=== PATIENT | female | born 1950 | race Caucasian/White ===

== ENCOUNTER → 2016-03-22 | Outpatient (CLI) | payer BC ==
--- NOTE | 2016-03-22 12:12 | MR ---
EXAMINATION TYPE: MR knee RT wo con DATE OF EXAM: 03/22/2016 10:07 AM COMPARISON: NONE HISTORY: Rt. knee pain TECHNIQUE: Multiplanar, multisequence imaging of the right knee is performed without IV contrast. FINDINGS: There are postop changes to the distal femur, metallic susceptibility artifact could obscur e detail. MEDIAL MENISCUS: Posterior horn of the medial meniscus shows some linear increased signal which is th ought to extend to the articular surface LATERAL MENISCUS: There is some increased signal in the posterior horn of the lateral meniscus, diffi cult to exclude a tear seen better on the sagittal image. CRUCIATE LIGAMENTS: The anterior and posterior cruciate ligaments are intact and unremarkable. COLLATERAL LIGAMENTS: The medial collateral ligament and lateral collateral ligament complex are inta ct and unremarkable. EXTENSOR MECHANISM: Visualized quadriceps and patellar tendons are intact. EFFUSION: Small joint effusion. POPLITEAL CYST: Small semimembranosus gastrocnemius cyst is present. TRICOMPARTMENT SPACES: Mild joint space loss CARTILAGE: Suspect grade 3 to grade IV chondromalacia posterior patella BONE MARROW SIGNAL: Somewhat heterogeneous in the proximal tibia and fibula as well as lateral femora l condyle and along the shaft of the distal femur there is some increased signal which may be related to bone marrow edema OTHER: Subcutaneous edema present anterior subcutaneous fat. IMPRESSION: Postoperative changes as described. Osteoarthritis. Possible meniscal tears as described. Additional findings above.
== END | disposition home or self-care (01) ==
LOC: RADMRIMAIN 09:23
PROVIDERS: ATTEND Nurse Practitioner Family
DX: M17.11 Unilateral primary osteoarthritis, right knee (principal); Z87.81 Personal history of (healed) traumatic fracture; Z98.890 Other specified postprocedural states

== ENCOUNTER → 2016-04-11 | Outpatient (CLI) | payer BC ==
--- NOTE | 2016-04-15 09:11 | MM ---
Reason for exam: screening (asymptomatic). Last mammogram was performed 2 years and 4 months ago. History: Patient is postmenopausal. Family history of premenopausal breast cancer in sister and breast cancer in cousin. Excisional biopsy of the right breast, January 2008. Took estrogen for 3 years beginning at age 51. Physical Findings: A clinical breast exam by your physician is recommended on an annual basis and results should be correlated with mammographic findings. MG 3D Screening Mammo W/Cad Bilateral CC and MLO view(s) were taken. Prior study comparison: December 13, 2013, bilateral MG screening mammo w CAD. May 26, 2012, CAD bilateral diagnostic mammogram. January 29, 2011, bilateral digital screening mammo w/CAD. October 20, 2009, bilateral digital screening mammogram. A small circumscribed nodule in the posterior left breast on MLO view has benign features. No significant changes when compared with prior studies. ASSESSMENT: Benign, BI-RAD 2 RECOMMENDATION: Routine screening mammogram of both breasts in 1 year.
== END | disposition home or self-care (01) ==
LOC: RADMAMWWP 14:47
PROVIDERS: ATTEND Family Medicine
DX: Z12.31 Encounter for screening mammogram for malignant neoplasm of breast (principal)
CPT/HCPCS: 77063; G0202

== ENCOUNTER → 2017-03-13 | Outpatient (CLI) | payer BC | END | disposition home or self-care (01) | LOC: LABWHC1 14:59 | PROVIDERS: ATTEND Internal Medicine | DX: Z09 Encounter for follow-up examination after completed treatment for conditions other than malignant neoplasm (principal); Z86.711 Personal history of pulmonary embolism; Z86.718 Personal history of other venous thrombosis and embolism | CPT/HCPCS: 36415; 85379 ==

== ENCOUNTER → 2017-04-09 | Outpatient (CLI) | payer BC ==
[2017-04-09 13:19] LABS: Blood Urea Nitrogen 20 mg/dL (7-17)
--- NOTE | 2017-04-09 15:52 | CT ---
EXAMINATION TYPE: CT chest w con DATE OF EXAM: 04/09/2017 COMPARISON: Recent chest x-ray April 02, 2017. Recent CTA chest 04/27/2014 HISTORY: Lobar pneumonia per order. CT DLP: 416.60 mGycm. Automated Exposure Control for Dose Reduction was Utilized. TECHNIQUE: CT scan of the thorax is performed following with IV Contrast, patient injected with 80 m l mL of Visipaque 320. FINDINGS: LUNGS: There is linear density left lung base redemonstrated presumed postsurgical change, less likel y calcified plaque. There is adjacent left basilar scarring redemonstrated. Lungs otherwise are matilde sly clear. Prominent right pericardial fat pad anteriorly mimics triangular shaped opacity right lung base on recent x-ray. There is no pleural effusion or pneumothorax seen bilaterally. No suspicious nodule or mass is present. The tracheobronchial tree is patent. MEDIASTINUM: There are no greater than 1 cm hilar or mediastinal lymph nodes. No cardiomegaly or pe ricardial effusion is seen. Coronary artery calcification is seen which is noted marker for coronary artery disease. OTHER: There is moderate to severe multilevel spurring in the thoracic spine. There are surgical steele ge from gastric bypass procedure epigastric region redemonstrated. Cholecystectomy clips are again se en. IMPRESSION: 1. No suspicious acute pulmonary process.
== END | disposition home or self-care (01) ==
LOC: RADCTMAIN 12:19
PROVIDERS: ATTEND Internal Medicine Critical Care Medicine
DX: J18.1 Lobar pneumonia, unspecified organism (principal)
CPT/HCPCS: 82565; 84520; 71260; 36415; Q9967

== ENCOUNTER → 2017-12-30 | Outpatient (CLI) | payer BC, MEDICARE ==
--- NOTE | 2017-12-30 12:43 | US ---
EXAMINATION TYPE: US venous Doppler duplex LE DATE OF EXAM: 12/30/2017 12:29 PM COMPARISON: CT, US CLINICAL HISTORY: M79.662 M79.661 Pain bilateral Lower. Patient stated has bilateral calf cramping an d noted after long distance travel recently; prior PE; on Xarelto and other blood thinner since 2011 SIDE PERFORMED: Bilateral TECHNIQUE: The lower extremity deep venous system is examined utilizing real time linear array sonog myron with graded compression, Doppler sonography and color-flow sonography. VESSELS IMAGED: Common Femoral Vein Deep Femoral Vein Greater Saphenous Vein * Femoral Vein Popliteal Vein Small Saphenous Vein * Proximal Calf Veins (* superficial vessels) Grayscale, color Doppler, spectral doppler imaging performed of the deep veins of the lower extremiti es. There is normal flow, compressibility, vascular waveforms. Right Leg: Negative for DVT Left Leg: Negative for DVT IMPRESSION: No sonographic evidence of deep venous thrombosis within the bilateral lower extremities.
== END | disposition home or self-care (01) ==
LOC: RADUSWWP 11:48
PROVIDERS: ATTEND Internal Medicine Hematology & Oncology
DX: M79.662 Pain in left lower leg (principal); M79.661 Pain in right lower leg; Z88.5 Allergy status to narcotic agent; Z88.8 Allergy status to other drugs, medicaments and biological substances
CPT/HCPCS: 93970

== ENCOUNTER 2021-03-25 14:03 | Inpatient (IN) | payer MEDICARE, OTHER ==
[2021-03-25] MEDS ORDERED: HYDROmorphone 0.5 MG/0.5 ML SYRINGE IVP STA ×3 (14:25→16:34)
--- NOTE | 2021-03-25 14:53 | ED ---
General Adult HPI - General Chief complaint: Fall Stated complaint: fall Time Seen by Provider: 03/25/21 14:05 Source: patient, EMS Mode of arrival: EMS Limitations: no limitations - History of Present Illness Initial comments: 70-year-old female with a past medical history of diabetes mellitus, DVT/PE on Xarelto, GERD, hypertension presents to the emergency room for a chief complaint of fall. Patient slipped on ice and fell on the left hip. Patient is painful to move. Patient states she cannot stand on it. Patient was brought in by EMS. Patient denies hitting her head or any other injuries. Denies pain elsewhere.Patient has no other complaints at this time including shortness of breath, chest pain, abdominal pain, nausea or vomiting, headache, or visual changes. - Related Data Home Medications Medication Instructions Recorded Confirmed ALPRAZolam [Xanax] 0.5 mg PO HS PRN 08/23/14 12/31/17 Furosemide [Lasix] 40 mg PO QAM 08/23/14 12/31/17 Moexipril HCl [Univasc] 15 mg PO BID 08/23/14 12/31/17 Omeprazole [PriLOSEC] 40 mg PO AC-BRKFST 08/23/14 12/31/17 Potassium Chloride [Klor-Con 10 ER] 10 meq PO QAM 08/23/14 12/31/17 Venlafaxine HCl ER [Effexor XR] 75 mg PO QAM 08/23/14 12/31/17 glipiZIDE [Glucotrol] 5 mg PO QAM 08/23/14 12/31/17 metFORMIN HCL [Glucophage] 1,000 mg PO BID 08/23/14 12/31/17 Rivaroxaban [Xarelto Starter Pack] 10 mg PO DAILY 06/16/15 12/31/17 allopurinoL [Zyloprim] 300 mg PO QAM 06/16/15 12/31/17 Diphenox-Atrop 2.5-0.025 mg 2 tab PO QID PRN 12/31/17 [Lomotil] Oxybutynin Chloride 5 mg PO BID 12/31/17 Pravastatin Sodium [Pravachol] 20 mg PO DAILY 12/31/17 Allergies Allergy/AdvReac Type Severity Reaction Status Date / Time Iodinated Contrast Media Allergy Swelling Verified 03/25/21 14:21 shellfish derived Allergy Abdominal Verified 03/25/21 14:21 Pain warfarin sodium Allergy Unknown Verified 03/25/21 14:21 [From Coumadin] Review of Systems ROS Statement: Those systems with pertinent positive or pertinent negative responses have been documented in the HPI. ROS Other: All systems not noted in ROS Statement are negative. Past Medical History Past Medical History: Blood Disorder, Diabetes Mellitus, Deep Vein Thrombosis (DVT), GERD/Reflux, Hypertension, Pulmonary Embolus (PE) History of Any Multi-Drug Resistant Organisms: None Reported Past Surgical History: Hysterectomy, Orthopedic Surgery, Tubal Ligation Additional Past Surgical History / Comment(s): HAD GASTRIC STAPLING WITH REVERSAL. LUNG STUCK TO DIAPHRAGM. RIGHT WRIST FRACTURE. LEFT ARM HEMATOMA WITH SECONDARY SURGERY. Past Psychological History: No Psychological Hx Reported Past Alcohol Use History: None Reported Past Drug Use History: None Reported - Past Family History Mother Family Medical History: Diabetes Mellitus Additional Family Medical History / Comment(s): PATIENT STATES MOTHER HAD "HEART CONDITION" Father Additional Family Medical History / Comment(s): PATIENT STATES FATHER HAD "HEART CONDITION" Son(s) Family Medical History: Deep Vein Thrombosis (DVT) (upper extremity after PICC line), Pulmonary Embolus (after PICC line ) General Exam Limitations: no limitations General appearance: alert, in no apparent distress Head exam: Present: atraumatic Eye exam: Present: normal appearance, PERRL, EOMI. Absent: scleral icterus, conjunctival injection ENT exam: Present: normal exam, mucous membranes moist Neck exam: Present: normal inspection, full ROM. Absent: tenderness Respiratory exam: Present: normal lung sounds bilaterally. Absent: respiratory distress, wheezes, chest wall tenderness Cardiovascular Exam: Present: regular rate, normal rhythm, normal heart sounds GI/Abdominal exam: Present: soft, normal bowel sounds. Absent: distended, tenderness Extremities exam: Present: tenderness (Tenderness is noted to the left lateral hip), normal capillary refill (Capillary refill less than 2 seconds, DP pulse 2+ left lower extremity). Absent: full ROM (range Of motion of the left hip is limited secondary to pain. Patient able to move all toes.) Course Vital Signs 03/25/21 03/25/21 14:18 16:22 Temperature 97 F L Pulse Rate 76 92 Respiratory 20 20 Rate Blood Pressure 141/83 125/65 O2 Sat by Pulse 97 91 L Oximetry - Reevaluation(s) Reevaluation #1: 03/25/21 14:49 pt now stating she has some chest pressure that just started after getting xrays, ekg will be obtained EKG Findings - EKG Comments: EKG Findings:: Normal sinus rhythm, ventricular rate 83, ME interval 186, QTC 448 Medical Decision Making - Medical Decision Making pt presents for left hip pain after a mechanical fall slipped on ice. neurovascular status intact LLE. Xray shows an acute impacted femoral neck fracture. 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 pt also started to complain of chest pain after xrays. described it as a pressure in her chest. non radiating. Xray unremarkable. Troponin negative. we will consult cardiology and trend troponin. CT brain c-spine added per Dr Chang's request given anticoagulation. results pending. we will hold aspirin for chest pain until this is negative. Dr Roman did accept admission. Requests stat consult to medicine given chest pain. I did notify Dr De La Cruz and he is coming to the ER for eval. - Lab Data Result diagrams: 03/25/21 15:22 03/25/21 15:22 Lab Results 03/25/21 03/25/21 03/25/21 Range/Units 15:22 15:22 15:22 WBC 13.4 H (3.8-10.6) k/uL RBC 4.50 (3.80-5.40) m/uL Hgb 12.5 (11.4-16.0) gm/dL Hct 38.7 (34.0-46.0) % MCV 85.9 (80.0-100.0) fL MCH 27.8 (25.0-35.0) pg MCHC 32.4 (31.0-37.0) g/dL RDW 14.6 (11.5-15.5) % Plt Count 156 (150-450) k/uL MPV 8.4 Neutrophils % 84 % Lymphocytes % 11 % Monocytes % 3 % Eosinophils % 2 % Basophils % 0 % Neutrophils # 11.2 H (1.3-7.7) k/uL Lymphocytes # 1.5 (1.0-4.8) k/uL Monocytes # 0.4 (0-1.0) k/uL Eosinophils # 0.3 (0-0.7) k/uL Basophils # 0.0 (0-0.2) k/uL PT 11.3 (9.0-12.0) sec INR 1.1 (<1.2) APTT 25.1 (22.0-30.0) sec Sodium 139 (137-145) mmol/L Potassium 4.6 (3.5-5.1) mmol/L Chloride 106 (98-107) mmol/L Carbon Dioxide 24 (22-30) mmol/L Anion Gap 9 mmol/L BUN 14 (7-17) mg/dL Creatinine 0.69 (0.52-1.04) mg/dL Est GFR (CKD-EPI)AfAm >90 (>60 ml/min/1.73 sqM) Est GFR (CKD-EPI)NonAf 90 (>60 ml/min/1.73 sqM) Glucose 170 H (74-99) mg/dL Calcium 9.1 (8.4-10.2) mg/dL Total Bilirubin 0.8 (0.2-1.3) mg/dL AST 182 H (14-36) U/L ALT 61 H (4-34) U/L Alkaline Phosphatase 90 (38-126) U/L Troponin I (0.000-0.034) ng/mL Total Protein 6.8 (6.3-8.2) g/dL Albumin 3.9 (3.5-5.0) g/dL 03/25/21 Range/Units 15:22 WBC (3.8-10.6) k/uL RBC (3.80-5.40) m/uL Hgb (11.4-16.0) gm/dL Hct (34.0-46.0) % MCV (80.0-100.0) fL MCH (25.0-35.0) pg MCHC (31.0-37.0) g/dL RDW (11.5-15.5) % Plt Count (150-450) k/uL MPV Neutrophils % % Lymphocytes % % Monocytes % % Eosinophils % % Basophils % % Neutrophils # (1.3-7.7) k/uL Lymphocytes # (1.0-4.8) k/uL Monocytes # (0-1.0) k/uL Eosinophils # (0-0.7) k/uL Basophils # (0-0.2) k/uL PT (9.0-12.0) sec INR (<1.2) APTT (22.0-30.0) sec Sodium (137-145) mmol/L Potassium (3.5-5.1) mmol/L Chloride (98-107) mmol/L Carbon Dioxide (22-30) mmol/L Anion Gap mmol/L BUN (7-17) mg/dL Creatinine (0.52-1.04) mg/dL Est GFR (CKD-EPI)AfAm (>60 ml/min/1.73 sqM) Est GFR (CKD-EPI)NonAf (>60 ml/min/1.73 sqM) Glucose (74-99) mg/dL Calcium (8.4-10.2) mg/dL Total Bilirubin (0.2-1.3) mg/dL AST (14-36) U/L ALT (4-34) U/L Alkaline Phosphatase (38-126) U/L Troponin I <0.012 (0.000-0.034) ng/mL Total Protein (6.3-8.2) g/dL Albumin (3.5-5.0) g/dL Disposition Clinical Impression: Fall, Hip fracture, Chest pain Disposition: ADMITTED IP TO THIS HOSP Is patient prescribed a controlled substance at d/c from ED?: No Referrals: Willy Crowley MD [Family Provider] - 1-2 days Time of Disposition: 16:41
--- NOTE | 2021-03-25 15:28 | XR ---
EXAMINATION TYPE: XR Hip LT and AP Pelvis DATE OF EXAM: 03/25/2021 COMPARISON: NONE HISTORY: Pain. Fall. TECHNIQUE: 4 views FINDINGS: The pelvic ring is intact. There is impacted left femoral neck fracture. There is no disloc ation. IMPRESSION: Acute impacted femoral neck fracture.
[2021-03-25 15:29] LABS: Basophils % (A) 0 %; Eosinophils # (A) 0.3 k/uL (0-0.7); Eosinophils % (A) 2 %; HCT 38.7 % (34.0-46.0); HGB 12.5 gm/dL (11.4-16.0); Lymphocytes # (A) 1.5 k/uL (1.0-4.8); Lymphocytes % (A) 11 %; MCH 27.8 pg (25.0-35.0); MCHC 32.4 g/dL (31.0-37.0); MCV 85.9 fL (80.0-100.0); Mean Platelet Volume 8.4; Monocytes # (A) 0.4 k/uL (0-1.0); Monocytes % (A) 3 %; Neutrophils # (A) 11.2 k/uL (1.3-7.7); Neutrophils % (A) 84 %; Platelet Count 156 k/uL (150-450); RDW 14.6 % (11.5-15.5); WBC 13.4 k/uL (3.8-10.6)
--- NOTE | 2021-03-25 15:31 | XR ---
EXAMINATION TYPE: XR chest 1V DATE OF EXAM: 03/25/2021 COMPARISON: 04/17/2020 HISTORY: Rib pain TECHNIQUE: Single view FINDINGS: Exam limited by patient positioning. There is no heart failure nor confluent pneumonic infi ltrate. No pneumothorax. Exam limited by positioning. IMPRESSION: Limited exam shows no heart failure or pulmonary consolidation. No rib fractures seen
[2021-03-25 15:39] LABS: ALT 61 U/L (4-34); AST 182 U/L (14-36); African American GFR (CKD) >90 (>60 ml/min/1.73 sqM); Albumin 3.9 g/dL (3.5-5.0); Alkaline Phosphatase 90 U/L (38-126); Anion Gap 9 mmol/L; Blood Urea Nitrogen 14 mg/dL (7-17); Calcium 9.1 mg/dL (8.4-10.2); Carbon Dioxide 24 mmol/L (22-30); Chloride 106 mmol/L (98-107); Glucose 170 mg/dL (74-99); Non-African American GFR(CKD) 90 (>60 ml/min/1.73 sqM); Potassium 4.6 mmol/L (3.5-5.1); Sodium 139 mmol/L (137-145); Total Bilirubin 0.8 mg/dL (0.2-1.3); Total Protein 6.8 g/dL (6.3-8.2)
[2021-03-25 15:43] LABS: INR 1.1 (<1.2); Partial Thromboplastin Time 25.1 sec (22.0-30.0); Prothrombin Time 11.3 sec (9.0-12.0)
[2021-03-25] MEDS ORDERED: NALOXONE 0.4 MG/ML 1 ML VIAL IV PRN (16:41)
[2021-03-25] MEDS ORDERED: ONDANSETRON 4 MG/2 ML VIAL IVP PRN (16:41)
--- NOTE | 2021-03-25 17:32 | CT ---
EXAMINATION TYPE: CT brain jaylon chaves DATE OF EXAM: 03/25/2021 COMPARISON: None HISTORY: Fall today. No known head injury. Pt on blood thinners. CT DLP: 1642.5 mGycm Automated exposure control for dose reduction was used. Ventricles of normal size. There is no mass effect or midline shift. There is no sign of intracranial hemorrhage. There is cerebral mild cortical atrophy. Calvarium is intact. Skull base is intact. The cervical vertebra have normal alignment. Posterior elements are intact. Facet joints are intact. There is mild spurring at C5-6. Prevertebral soft tissues are intact. IMPRESSION: Mild cerebral atrophy. No acute intracranial abnormality. Mucous retention cysts noted in the maxilla ry sinuses. Minor degenerative disc changes at C5-6. No fracture.
[2021-03-25] MEDS ORDERED: ALPRAZolam 0.5 MG TAB PO PRN (17:38)
--- NOTE | 2021-03-25 18:03 | P.CONS ---
History of Present Illness - Reason for Consult Consult date: 03/25/21 Medical management Requesting physician: Brian Roman - Chief Complaint Fall - History of Present Illness STAT CONSULTATION: This is a pleasant 70-year-old patient follows with Dr. Mckeon. Chronic stable medical conditions include diabetes on insulin, GERD, hypertension, anxiety, depression, urinary incontinence, gout,. Patient is also had DVT in the right leg, arm, and a blood clot of the lung in the area starting in 2012. Patient's chronic and xarelto. Patient isn't a baseline fairly active. Patient did have a checkup including a stress test in October 2019 that was unremarkable. Patient is getting out of the car and she slipped on ice falling on her left hip. Patient has a left hip fracture now. While in the ER patient developed a squeezing sensation in the lower part of the sternum that lasted for about 10 minutes. No radiation. No aggravating or relieving factor. Pain subsided on its own. No shortness of breath. No dizziness, lightheadedness. Patient's at the bedside. Review of systems: GEN.: None EYES: None HEENT: None NECK: None RESPIRATORY: None CARDIOVASCULAR: As above GASTROINTESTINAL: GERD GENITOURINARY: Incontinence MUSCULOSKELETAL: Joint pains LYMPHATICS: None HEMATOLOGICAL: None PSYCHIATRY: None NEUROLOGICAL: None Past medical history to include: Diabetes, DVT PE about 3 episodes around 2012 and after GERD, hypertension, anxiety, urinary incontinence, depression, gout Social history: No history of smoking or alcohol. Lives with her . Family history: Diabetes, mother had heart condition Physical examination: VITAL SIGNS: 97, 76, 20, 141/83, 97% on room air GENERAL: BMI 40.4, laying in bed, awake, comfortable. EYES: Pupils equal. Conjunctiva normal. HEENT: External appearance of nose and ears normal, oral cavity grossly normal. NECK: JVD not raised; masses not palpable. HEART: First and second heart sounds are normal; no edema. LUNGS: Respiratory rate normal; clear to auscultation. ABDOMEN: Soft, nontender, liver spleen not palpable, no masses palpable. PSYCH: Alert and oriented x3; mood and affect normal. MUSCULAR skeletal: Limited range of motion of left hip. NEUROLOGICAL: Cranial nerves grossly intact; no facial asymmetry, power and sensation grossly intact. LYMPHATICS: No lymph nodes palpable in the axilla and neck INVESTIGATIONS, reviewed in the clinical context: White count 13.4 hemoglobin 12.5 platelets 156 sodium 139 potassium 4.6 creatinine 0.69 AST 182 ALT 61 Troponin I less than 0.012 EKG tracing personally reviewed by me-normal sinus rhythm. Rate 82. Chest x-ray film personally reviewed by me-limited exam because of positioning and possibly expiratory film Computed tomography scan brain and spine without contrast: Mild cerebral atrophy. DJD just changes. No fractures reported. Left hip x-ray fracture. Impacted left femoral neck fracture. No dislocation. Assessment and plan: -Left femoral neck fracture secondary to a mechanical fall. Bedrest. Patient being followed by Dr. Roman. Patient already and xarelto/DVT prophylaxis -Lower sternal chest pain lasting for 10 minutes. Subsided on its own. No other cardiac characteristics. No EKG changes. We will do serial cardiac enzymes. Cardiology is consulted. Patient did have a negative stress test in October 2019. Patient otherwise has no other cardiac symptoms. Possibly musculoskeletal from fall. -Morbid obesity BMI 40.4 Weight loss measures and follow with PCP -Diabetes mellitus type 2, chronic ligament insulin and Glucophage Hold Glucophage. Resume insulin 80 units subcu daily. Diabetic diet. Follow Accu-Cheks. 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 Patient chronically and xarelto 10 mg a day. We will hold off the same. Start the patient on Lovenox 100 mg subcu every 12. Lovenox can be held 12 hours prior to surgery. This was discussed with Dr. Roman from orthopedics. Resume home medications. Hold xarelto. Lovenox subcu 100 mg every 12. Follow Accu-Cheks. Hold metformin. Cardiology consultation. 2-D echocardiogram. Troponin I. Cardiovascular perioperative assessment. Patient is medically stable to proceed for surgery pending negative troponin. Patient has a fair exercise tolerance. Patient has a negative stress test October 2019. Patient is a moderate risk for surgery with no cardiac medications. This was discussed with the patient and at the bedside. Xarelto will be held. Lovenox. Thank you Dr. Roman Past Medical History Past Medical History: Blood Disorder, Diabetes Mellitus, Deep Vein Thrombosis (DVT), GERD/Reflux, Hypertension, Pulmonary Embolus (PE) History of Any Multi-Drug Resistant Organisms: None Reported Past Surgical History: Hysterectomy, Orthopedic Surgery, Tubal Ligation Additional Past Surgical History / Comment(s): HAD GASTRIC STAPLING WITH REVERSAL. LUNG STUCK TO DIAPHRAGM. RIGHT WRIST FRACTURE. LEFT ARM HEMATOMA WITH SECONDARY SURGERY. Past Psychological History: No Psychological Hx Reported Past Alcohol Use History: None Reported Past Drug Use History: None Reported - Past Family History Mother Family Medical History: Diabetes Mellitus Additional Family Medical History / Comment(s): PATIENT STATES MOTHER HAD "HEART CONDITION" Father Additional Family Medical History / Comment(s): PATIENT STATES FATHER HAD "HEART CONDITION" Son(s) Family Medical History: Deep Vein Thrombosis (DVT) (upper extremity after PICC line), Pulmonary Embolus (after PICC line ) Medications and Allergies Home Medications Medication Instructions Recorded Confirmed Type ALPRAZolam [Xanax] 0.5 mg PO BID PRN 08/23/14 03/25/21 History Furosemide [Lasix] 40 mg PO DAILY 08/23/14 03/25/21 History Omeprazole [PriLOSEC] 40 mg PO DAILY 08/23/14 03/25/21 History metFORMIN HCL [Glucophage] 1,000 mg PO BID 08/23/14 03/25/21 History allopurinoL [Zyloprim] 300 mg PO DAILY 06/16/15 03/25/21 History Diphenox-Atrop 2.5-0.025 mg 1 tab PO BID 12/31/17 03/25/21 History [Lomotil] Oxybutynin Chloride 5 mg PO BID 12/31/17 03/25/21 History Pravastatin Sodium [Pravachol] 20 mg PO HS 12/31/17 03/25/21 History Cetirizine HCl 10 mg PO DAILY 03/25/21 03/25/21 History Cholecalciferol [Vitamin D3 (25 50 mcg PO DAILY 03/25/21 03/25/21 History Mcg = 1000 Iu)] DULoxetine HCL [Cymbalta] 30 mg PO DAILY 03/25/21 03/25/21 History DULoxetine HCL [Cymbalta] 60 mg PO DAILY 03/25/21 03/25/21 History Insulin Degludec [Tresiba 100 units SQ DAILY 03/25/21 03/25/21 History Flextouch U-200 Pen] Losartan Potassium 100 mg PO HS 03/25/21 03/25/21 History Multivit-Min/FA/Lycopen/Lutein 1 tab PO DAILY 03/25/21 03/25/21 History [Centrum Silver Tablet] Potassium Chloride [Potassium 10 meq PO DAILY 03/25/21 03/25/21 History Chloride ER] Pyridoxine HCl (Vitamin B6) 100 mg PO DAILY 03/25/21 03/25/21 History [Vitamin B-6] Rivaroxaban [Xarelto] 10 mg PO DAILY 03/25/21 03/25/21 History amLODIPine [Norvasc] 5 mg PO HS 03/25/21 03/25/21 History Allergies Allergy/AdvReac Type Severity Reaction Status Date / Time Iodinated Contrast Media Allergy Swelling Verified 03/25/21 14:21 shellfish derived Allergy Abdominal Verified 03/25/21 14:21 Pain warfarin sodium Allergy Unknown Verified 03/25/21 14:21 [From Coumadin] Physical Exam Vitals: Vital Signs Temp Pulse Resp BP Pulse Ox 03/25/21 16:22 92 20 125/65 91 L 03/25/21 14:18 97 F L 76 20 141/83 97 Intake and Output 03/25/21 03/25/21 03/25/21 06:59 14:59 22:59 Other: Weight 103.419 kg Results CBC & Chem 7: 03/25/21 15:22 03/25/21 15:22 Labs: Abnormal Lab Results - Last 24 Hours (Table) 03/25/21 03/25/21 Range/Units 15:22 15:22 WBC 13.4 H (3.8-10.6) k/uL Neutrophils # 11.2 H (1.3-7.7) k/uL Glucose 170 H (74-99) mg/dL AST 182 H (14-36) U/L ALT 61 H (4-34) U/L
[2021-03-25] MEDS: HYDROmorphone 1 MG/ML 1 ML SYRINGE IVP PRN ×2 (18:43→22:15)
[2021-03-25] MEDS: SODIUM CHLORIDE 0.9% 1,000 ML IV SCH (19:18)
[2021-03-25 21:41] LABS: Glucose,Whole Blood 167 mg/dL (75-99)
[2021-03-25] MEDS: INSULIN ASPART (NovoLOG) 100 UNIT/ML VIAL SQ SCH (22:07)
[2021-03-25] MEDS: LOSARTAN 50 MG TAB PO SCH (22:08)
[2021-03-25] MEDS: PRAVASTATIN SODIUM 20 MG TAB PO SCH (22:08)
[2021-03-25] MEDS: amLODIPine 5 MG TAB PO SCH (22:09)
[2021-03-25] MEDS: OXYBUTYNIN CHLORIDE 5 MG TAB PO SCH (22:09)
[2021-03-25] MEDS: DIPHENOX-ATROP 2.5-0.025 MG 1 EACH TAB PO SCH (22:09)
[2021-03-25] MEDS: ENOXAPARIN 100 MG/ML SYRINGE SQ SCH (22:15)
[2021-03-26] MEDS: HYDROmorphone 1 MG/ML 1 ML SYRINGE IVP PRN ×6 (01:54→20:55)
[2021-03-26 06:29] LABS: Glucose,Whole Blood 190 mg/dL (75-99)
[2021-03-26] MEDS: PANTOPRAZOLE 40 MG TABLET PO SCH (06:40)
[2021-03-26] MEDS: INSULIN ASPART (NovoLOG) 100 UNIT/ML VIAL SQ SCH ×4 (06:40→20:54)
[2021-03-26] MEDS: SODIUM CHLORIDE 0.9% 1,000 ML IV SCH ×2 (06:41→17:02)
[2021-03-26] MEDS: DULoxetine HCL 30 MG CAPSULE.DR PO SCH (08:05)
[2021-03-26] MEDS: allopurinoL 300 MG TAB PO SCH (08:05)
[2021-03-26] MEDS: DULoxetine HCL 60 MG CAPSULE.DR PO SCH (08:05)
[2021-03-26] MEDS: OXYBUTYNIN CHLORIDE 5 MG TAB PO SCH ×2 (08:05→20:54)
[2021-03-26] MEDS: DIPHENOX-ATROP 2.5-0.025 MG 1 EACH TAB PO SCH ×2 (08:06→20:54)
[2021-03-26] MEDS: ENOXAPARIN 100 MG/ML SYRINGE SQ SCH ×2 (08:09→20:55)
[2021-03-26] MEDS: PYRIDOXINE 50 MG TAB PO SCH (08:09)
[2021-03-26] MEDS: INSULIN DETEMIR (LEVEMIR) 100 UNIT/ML SYR SQ SCH (08:09)
--- NOTE | 2021-03-26 11:01 | ECHOF ---
Referral Reason:Chest pain MEASUREMENTS -------- HEIGHT: 160.0 cm WEIGHT: 103.4 kg BP: 156/83 RVIDd: 3.2 cm (< 3.3) IVSd: 1.5 cm (0.6 - 1.1) LVIDd: 3.8 cm (3.9 - 5.3) LVPWd: 1.3 cm (0.6 - 1.1) IVSs: 1.8 cm LVIDs: 2.9 cm LVPWs: 1.5 cm LAESV Index (A-L): 24.87 ml/m Ao Diam: 2.3 cm (2.0 - 3.7) AV Cusp: 1.9 cm (1.5 - 2.6) LA Diam: 4.4 cm (2.7 - 3.8) MV EXCURSION: 16.541 mm (> 18.000) MV EF SLOPE: 62 mm/s (70 - 150) EPSS: 0.2 cm MV E Dustin: 0.88 m/s MV DecT: 234 ms MV A Dustin: 1.20 m/s MV E/A Ratio: 0.73 RAP: 5.00 mmHg RVSP: 37.90 mmHg FINDINGS -------- Sinus rhythm. This was a technically difficult study with suboptimal apical views. Pt unable to turn due to hip fx. The left ventricular size is normal. There is moderate concentric left ventricular hypertrophy. O verall left ventricular systolic function is normal with, an EF between 55 - 60 %. The right ventricle is normal in size. Normal LA size by volume 22+/-6 ml/m2. The right atrial size is normal. 3.0mg of Lumason was utilized for enhancement of images Interatrial and interventricular septum intact. There is no evidence of aortic regurgitation. There is no evidence of aortic stenosis. There is trace to mild mitral regurgitation. Mild tricuspid regurgitation present. There is mild pulmonary hypertension. The right ventricular systolic pressure, as measured by Doppler, is 37.90mmHg. There is no pulmonic regurgitation present. The aortic root size is normal. IVC Not well visulized. Echo free space represents a pericardial fat pad. There is no pericardial effusion. CONCLUSIONS -------- 1. The left ventricular size is normal. 2. There is moderate concentric left ventricular hypertrophy. 3. Overall left ventricular systolic function is normal with, an EF between 55 - 60 %. 4. There is trace to mild mitral regurgitation. 5. Mild tricuspid regurgitation present. 6. There is mild pulmonary hypertension. 7. The right ventricular systolic pressure, as measured by Doppler, is 37.90mmHg. CANDY STARCH MOLD PRINTER: Linda Neri RDCS
[2021-03-26 12:06] LABS: Glucose,Whole Blood 186 mg/dL (75-99)
--- NOTE | 2021-03-26 12:21 | P.CRDCN ---
History of Present Illness History of present illness: HISTORY OF PRESENTING ILLNESS This is a pleasant 70-year-old female past medical history significant for type 2 diabetes, PE/DVT on Xarelto, hypertension, hyperlipidemia, former nicotine dependence. 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 We have been asked to see in consultation for chest pain. Patient seen in the emergency department after slipping on ice and falling on her left hip. Patient found to have acute Left impacted femoral neck fracture. Patient denies any chest pain, shortness of breath, palpitations, lightheadedness, dizziness, syncope or near syncope. She denies any history of coronary artery disease, AR, stroke. She denies any family history of heart disease. She denies any current tobacco use. She states she recently underwent stress testing in October at [facility] which she states was normal. DIAGNOSTICS EKG reveals sinus rhythm, heart rate 82, T wave inversion in lead III, no significant ST or T-wave abnormalities. Telemetry tracings indicate sinus mechanism Chest xray no acute cardiopulmonary process. Echocardiogram revealed EF 5560 percent, trace to mild mitral regurgitation, mild tricuspid regurgitation, mild pulmonary hypertension Laboratory reviewed, troponin negative 3, WBC 13.4, hemoglobin 12.5, platelets 156, sodium 139, potassium 4.6, BUN 14, serum creatinine 0.6, AST 22, ALT 61, covid 19 negative Current cardiac medications include amlodipine 5 mg nightly, Xarelto 10 mg daily, pravastatin 20 mg nightly, losartan 100 mg nightly, Lasix 40 mg daily REVIEW OF SYSTEMS At the time of my exam: CONSTITUTIONAL: Denies fever or chills. CARDIOVASCULAR: Denies chest pain, shortness of breath, orthopnea, PND or palpitations. RESPIRATORY: Denies cough. GASTROINTESTINAL: Denies abdominal pain, diarrhea, constipation, nausea or vomiting. MUSCULOSKELETAL: +left hip pain NEUROLOGIC: Denies numbness, tingling, headacbe or weakness. ENDOCRINE: Denies fatigue, weight change, polydipsia or polyurina. GENITOURINARY: Denies burning, hematuria or urgency with micturation. HEMATOLOGIC: Denies history of anemia or bleeding. PHYSICAL EXAMINATION Blood pressure 156/70, heart rate 83, afebrile, oxygen saturation is greater than 92% on 4 L nasal cannula CONSTITUTIONAL: No apparent distress. HEENT: Head is normocephalic. Pupils are equal, round. Sclerae anicteric. Mucous membranes of the mouth are moist. No JVD. No carotid bruit. CHEST EXAMINATION: Lungs are clear to auscultation. No chest wall tenderness is noted on palpation or with deep breathing. HEART EXAMINATION: Regular rate and rhythm. S1, S2 heard. No murmurs, gallops or rub. ABDOMEN: Soft, nontender. Positive bowel sounds. EXTREMITIES: 2+ peripheral pulses, no lower extremity edema and no calf tenderness. NEUROLOGIC EXAMINATION: Patient is awake, alert and oriented x3. ASSESSMENT Chest pain ruled out, patient denies chest pain Left femoral neck fracture secondary to a mechanical fall Type 2 diabetes PE/DVT on Xarelto Hypertension Hyperlipidemia Former nicotine dependence PLAN From a cardiology perspective, echocardiogram reviewed with preserved left ventr icular systolic function, no significant wall motion abnormalities. Troponin negative x 3. EKG with no evidence of acute ischemia. Patient denies chest pain or shortness of breath. Patient is hemodynamically stable. We will obtain records from [facility]. Patient Patient is able to perform >4 METs levels of activity and does not have any acute cardiac conditions at this time. There are no absolute contraindications to undergo surgery at this time. Nurse Practitioner note has been reviewed, I agree with a documented findings and plan of care. Patient was seen and examined. Past Medical History Past Medical History: Blood Disorder, Diabetes Mellitus, Deep Vein Thrombosis (DVT), GERD/Reflux, Hypertension, Pulmonary Embolus (PE) History of Any Multi-Drug Resistant Organisms: None Reported Past Surgical History: Hysterectomy, Orthopedic Surgery, Tubal Ligation Additional Past Surgical History / Comment(s): HAD GASTRIC STAPLING WITH REVERSAL. LUNG STUCK TO DIAPHRAGM. RIGHT WRIST FRACTURE. LEFT ARM HEMATOMA WITH SECONDARY SURGERY. Past Psychological History: No Psychological Hx Reported Smoking Status: Former smoker Past Alcohol Use History: None Reported Past Drug Use History: None Reported - Past Family History Mother Family Medical History: Diabetes Mellitus Additional Family Medical History / Comment(s): PATIENT STATES MOTHER HAD "HEART CONDITION" Father Additional Family Medical History / Comment(s): PATIENT STATES FATHER HAD "HEART CONDITION" Son(s) Family Medical History: Deep Vein Thrombosis (DVT), Pulmonary Embolus Medications and Allergies Home Medications Medication Instructions Recorded Confirmed Type ALPRAZolam [Xanax] 0.5 mg PO BID PRN 08/23/14 03/25/21 History Furosemide [Lasix] 40 mg PO DAILY 08/23/14 03/25/21 History Omeprazole [PriLOSEC] 40 mg PO DAILY 08/23/14 03/25/21 History metFORMIN HCL [Glucophage] 1,000 mg PO BID 08/23/14 03/25/21 History allopurinoL [Zyloprim] 300 mg PO DAILY 06/16/15 03/25/21 History Diphenox-Atrop 2.5-0.025 mg 1 tab PO BID 12/31/17 03/25/21 History [Lomotil] Oxybutynin Chloride 5 mg PO BID 12/31/17 03/25/21 History Pravastatin Sodium [Pravachol] 20 mg PO HS 12/31/17 03/25/21 History Cetirizine HCl 10 mg PO DAILY 03/25/21 03/25/21 History Cholecalciferol [Vitamin D3 (25 50 mcg PO DAILY 03/25/21 03/25/21 History Mcg = 1000 Iu)] DULoxetine HCL [Cymbalta] 30 mg PO DAILY 03/25/21 03/25/21 History DULoxetine HCL [Cymbalta] 60 mg PO DAILY 03/25/21 03/25/21 History Insulin Degludec [Tresiba 100 units SQ DAILY 03/25/21 03/25/21 History Flextouch U-200 Pen] Losartan Potassium 100 mg PO HS 03/25/21 03/25/21 History Multivit-Min/FA/Lycopen/Lutein 1 tab PO DAILY 03/25/21 03/25/21 History [Centrum Silver Tablet] Potassium Chloride [Potassium 10 meq PO DAILY 03/25/21 03/25/21 History Chloride ER] Pyridoxine HCl (Vitamin B6) 100 mg PO DAILY 03/25/21 03/25/21 History [Vitamin B-6] Rivaroxaban [Xarelto] 10 mg PO DAILY 03/25/21 03/25/21 History amLODIPine [Norvasc] 5 mg PO HS 03/25/21 03/25/21 History Allergies Allergy/AdvReac Type Severity Reaction Status Date / Time Iodinated Contrast Media Allergy Swelling Verified 03/25/21 14:21 shellfish derived Allergy Abdominal Verified 03/25/21 14:21 Pain warfarin sodium Allergy Unknown Verified 03/25/21 14:21 [From Coumadin] Physical Exam Vitals: Vital Signs Temp Pulse Pulse Resp BP BP Pulse Ox 03/26/21 11:58 98.2 F 83 18 156/78 91 L 03/26/21 08:00 98.3 F 89 18 154/78 92 L 03/26/21 04:10 98.2 F 93 18 156/83 92 L 03/25/21 23:33 89 20 147/70 94 L 03/25/21 19:21 98 F 87 18 132/74 93 L 03/25/21 18:45 77 18 143/72 88 L 03/25/21 16:22 92 20 125/65 91 L 03/25/21 14:18 97 F L 76 20 141/83 97 Intake and Output 03/25/21 03/26/21 03/26/21 22:59 06:59 14:59 Intake Total 240 Output Total 1425 Balance -1425 240 Intake: IV 10 Invasive Line 1 10 Oral 230 Output: Urine 1425 Other: Voiding Method External Catheter Indwelling Catheter Indwelling Catheter Weight 103.419 kg Results 03/25/21 15:22 03/25/21 15:22 Cardiac Enzymes 03/25/21 03/25/21 03/25/21 Range/Units 15:22 15:22 18:06 AST 182 H (14-36) U/L Troponin I <0.012 <0.012 (0.000-0.034) ng/mL 03/25/21 Range/Units 21:32 AST (14-36) U/L Troponin I <0.012 (0.000-0.034) ng/mL Coagulation 03/25/21 Range/Units 15:22 PT 11.3 (9.0-12.0) sec APTT 25.1 (22.0-30.0) sec CBC 03/25/21 Range/Units 15:22 WBC 13.4 H (3.8-10.6) k/uL RBC 4.50 (3.80-5.40) m/uL Hgb 12.5 (11.4-16.0) gm/dL Hct 38.7 (34.0-46.0) % Plt Count 156 (150-450) k/uL Comprehensive Metabolic Panel 03/25/21 Range/Units 15:22 Sodium 139 (137-145) mmol/L Potassium 4.6 (3.5-5.1) mmol/L Chloride 106 (98-107) mmol/L Carbon Dioxide 24 (22-30) mmol/L BUN 14 (7-17) mg/dL Creatinine 0.69 (0.52-1.04) mg/dL Glucose 170 H (74-99) mg/dL Calcium 9.1 (8.4-10.2) mg/dL AST 182 H (14-36) U/L ALT 61 H (4-34) U/L Alkaline Phosphatase 90 (38-126) U/L Total Protein 6.8 (6.3-8.2) g/dL Albumin 3.9 (3.5-5.0) g/dL Current Medications Generic Name Dose Route Start Last Admin Trade Name Freq PRN Reason Stop Dose Admin Allopurinol 300 mg 03/26/21 09:00 03/26/21 08:05 Allopurinol 300 Mg Tab PO 300 mg DAILY CORBY Administration Alprazolam 0.5 mg 03/25/21 17:38 Alprazolam 0.5 Mg Tab PO BID PRN Anxiety Amlodipine Besylate 5 mg 03/25/21 21:00 03/25/21 22:09 Amlodipine 5 Mg Tab PO 5 mg HS CORBY Administration Diphenoxylate HCl/Atropine 1 each 03/25/21 21:00 03/26/21 08:06 Diphenox-Atrop 2.5-0.025 Mg 1 Each Tab PO Not Given BID CORBY Duloxetine HCl 30 mg 03/26/21 09:00 03/26/21 08:05 Duloxetine Hcl 30 Mg Capsule. PO 30 mg DAILY CORBY Administration Duloxetine HCl 60 mg 03/26/21 09:00 03/26/21 08:05 Duloxetine Hcl 60 Mg Capsule. PO 60 mg DAILY CORBY Administration Enoxaparin Sodium 100 mg 03/25/21 21:00 03/26/21 08:09 Enoxaparin 100 Mg/Ml Syringe SQ 100 mg Q12H CORBY Administration Hydromorphone HCl 1 mg 03/25/21 16:41 03/26/21 09:52 Hydromorphone 1 Mg/Ml 1 Ml Syringe IVP 1 mg Q3HR PRN Administration Moderate Pain Sodium Chloride 1,000 mls @ 75 mls/hr 03/25/21 16:45 03/26/21 06:41 Saline 0.9% IV 75 mls/hr .[id number] CORBY Administration Insulin Aspart 0 unit 03/25/21 21:00 03/26/21 06:40 Insulin Aspart (Novolog) 100 Unit/Ml Vial SQ 3 unit ACHS CORBY Administration Protocol Insulin Detemir 80 unit 03/26/21 09:00 03/26/21 08:09 Insulin Detemir (Levemir) 100 Unit/Ml Syr SQ 80 unit DAILY CORBY Administration Losartan Potassium 100 mg 03/25/21 21:00 03/25/21 22:08 Losartan 50 Mg Tab PO 100 mg HS CORBY Administration Naloxone HCl 0.2 mg 03/25/21 16:41 Naloxone 0.4 Mg/Ml 1 Ml Vial IV Q2M PRN Opioid Reversal Ondansetron HCl 4 mg 03/25/21 16:41 Ondansetron 4 Mg/2 Ml Vial IVP Q8HR PRN Nausea And Vomiting Oxybutynin Chloride 5 mg 03/25/21 21:00 03/26/21 08:05 Oxybutynin Chloride 5 Mg Tab PO 5 mg BID CORBY Administration Pantoprazole Sodium 40 mg 03/26/21 07:30 03/26/21 06:40 Pantoprazole 40 Mg Tablet PO 40 mg [id number] CORBY Administration Pravastatin Sodium 20 mg 03/25/21 21:00 03/25/21 22:08 Pravastatin Sodium 20 Mg Tab PO 20 mg HS CORBY Administration Pyridoxine HCl 100 mg 03/26/21 09:00 03/26/21 08:09 Pyridoxine 50 Mg Tab PO 100 mg DAILY CORBY Administration Intake and Output 03/25/21 03/26/21 03/26/21 22:59 06:59 14:59 Intake Total 240 Output Total 1425 Balance -1425 240 Intake: IV 10 Invasive Line 1 10 Oral 230 Output: Urine 1425 Other: Voiding Method External Catheter Indwelling Catheter Indwelling Catheter Weight 103.419 kg 03/25/21 15:22 03/25/21 15:22
[2021-03-26 17:04] LABS: Glucose,Whole Blood 190 mg/dL (75-99)
--- NOTE | 2021-03-26 17:07 | P.HPOR ---
History of Present Illness H&P Date: 03/26/21 Chief Complaint: Left hip fracture Patient is a pleasant 70-year-old female seen at bedside this afternoon. She was admitted through the emergency department early yesterday afternoon after suffering a slip and fall at home. She developed pain at the left hip and had inability to ambulate. X-rays in the emergency department showed left femoral neck fracture. She has pain at the left hip as expected. She denies knee, ankle or foot pain. She denies numbness or tingling. She has no calf pain. She has a a past medical history of diabetes mellitus, DVT/PE on Xarelto, GERD, hypertension. Patient has no other complaints at this time including shortness of breath, chest pain, abdominal pain, nausea or vomiting, headache, or visual changes. Review of Systems All systems: negative Constitutional: Denies chills, Denies fever Eyes: denies blurred vision, denies pain Ears, nose, mouth and throat: Denies headache, Denies sore throat Cardiovascular: Denies chest pain, Denies shortness of breath Respiratory: Denies cough Gastrointestinal: Denies abdominal pain, Denies diarrhea, Denies nausea, Denies vomiting Genitourinary: Denies dysuria, Denies hematuria Musculoskeletal: Denies myalgias Integumentary: Denies pruritus, Denies rash Neurological: Denies numbness, Denies weakness Psychiatric: Denies anxiety, Denies depression Endocrine: Denies fatigue, Denies weight change Past Medical History Past Medical History: Blood Disorder, Diabetes Mellitus, Deep Vein Thrombosis (DVT), GERD/Reflux, Hypertension, Pulmonary Embolus (PE) History of Any Multi-Drug Resistant Organisms: None Reported Past Surgical History: Hysterectomy, Orthopedic Surgery, Tubal Ligation Additional Past Surgical History / Comment(s): HAD GASTRIC STAPLING WITH REVERSAL. LUNG STUCK TO DIAPHRAGM. RIGHT WRIST FRACTURE. LEFT ARM HEMATOMA WITH SECONDARY SURGERY. Past Psychological History: No Psychological Hx Reported Smoking Status: Former smoker Past Alcohol Use History: None Reported Past Drug Use History: None Reported - Past Family History Mother Family Medical History: Diabetes Mellitus Additional Family Medical History / Comment(s): PATIENT STATES MOTHER HAD "HEART CONDITION" Father Additional Family Medical History / Comment(s): PATIENT STATES FATHER HAD "HEART CONDITION" Son(s) Family Medical History: Deep Vein Thrombosis (DVT), Pulmonary Embolus Medications and Allergies Home Medications Medication Instructions Recorded Confirmed Type ALPRAZolam [Xanax] 0.5 mg PO BID PRN 08/23/14 03/25/21 History Furosemide [Lasix] 40 mg PO DAILY 08/23/14 03/25/21 History Omeprazole [PriLOSEC] 40 mg PO DAILY 08/23/14 03/25/21 History metFORMIN HCL [Glucophage] 1,000 mg PO BID 08/23/14 03/25/21 History allopurinoL [Zyloprim] 300 mg PO DAILY 06/16/15 03/25/21 History Diphenox-Atrop 2.5-0.025 mg 1 tab PO BID 12/31/17 03/25/21 History [Lomotil] Oxybutynin Chloride 5 mg PO BID 12/31/17 03/25/21 History Pravastatin Sodium [Pravachol] 20 mg PO HS 12/31/17 03/25/21 History Cetirizine HCl 10 mg PO DAILY 03/25/21 03/25/21 History Cholecalciferol [Vitamin D3 (25 50 mcg PO DAILY 03/25/21 03/25/21 History Mcg = 1000 Iu)] DULoxetine HCL [Cymbalta] 30 mg PO DAILY 03/25/21 03/25/21 History DULoxetine HCL [Cymbalta] 60 mg PO DAILY 03/25/21 03/25/21 History Insulin Degludec [Tresiba 100 units SQ DAILY 03/25/21 03/25/21 History Flextouch U-200 Pen] Losartan Potassium 100 mg PO HS 03/25/21 03/25/21 History Multivit-Min/FA/Lycopen/Lutein 1 tab PO DAILY 03/25/21 03/25/21 History [Centrum Silver Tablet] Potassium Chloride [Potassium 10 meq PO DAILY 03/25/21 03/25/21 History Chloride ER] Pyridoxine HCl (Vitamin B6) 100 mg PO DAILY 03/25/21 03/25/21 History [Vitamin B-6] Rivaroxaban [Xarelto] 10 mg PO DAILY 03/25/21 03/25/21 History amLODIPine [Norvasc] 5 mg PO HS 03/25/21 03/25/21 History Allergies Allergy/AdvReac Type Severity Reaction Status Date / Time Iodinated Contrast Media Allergy Swelling Verified 03/25/21 14:21 shellfish derived Allergy Abdominal Verified 03/25/21 14:21 Pain warfarin sodium Allergy Unknown Verified 03/25/21 14:21 [From Coumadin] Physical Examination Inspection of the left hip and lower extremity shows no wounds, erythema or ecchymoses. She has a shortened externally rotated left leg. Range of motion of the left hip is not tested fracture. She has has painless range of motion and is nontender at the knee, ankle and foot. Calf is soft nontender. Neurovascular status is grossly intact with motor and sensation throughout the left lower extremity. 2+ dorsalis pedis pulse and less than 2 second capillary refill is present. Results - Labs Labs: Abnormal Lab Results - Last 24 Hours (Table) 03/25/21 03/26/21 03/26/21 Range/Units 21:40 06:27 12:05 POC Glucose (mg/dL) 167 H 190 H 186 H (75-99) mg/dL H & H 03/25/21 Range/Units 15:22 Hgb 12.5 (11.4-16.0) gm/dL Hct 38.7 (34.0-46.0) % Coagulation 03/25/21 Range/Units 15:22 INR 1.1 (<1.2) Result Diagrams: 03/25/21 15:22 03/25/21 15:22 - Diagnostic results Hip x-ray: report reviewed, image reviewed ( impacted left femoral neck fracture) Assessment and Plan (1) Hip fracture Narrative/Plan: Patient has been reviewed and discussed with Dr. Roman. Plan is to proceed with surgical intervention including a left hip hemiarthroplasty on 03/28/2021 around 11 AM. She is being followed by internal medicine as well as cardiology has cleared her to proceed with surgical intervention. The benefits, risks and possible complications have been reviewed with the patient. She desires to proceed. Procedure and consent have been ordered. She'll be nothing by mouth after midnight, 03/27/2021. Lovenox is also to be held 12 hours prior to surgery. She'll continue with pain management, DVT prophylaxis, and medical management in the interim. Current Visit: Yes Status: Acute Priority: Medium Code(s): S72.009A - FRACTURE OF UNSP PART OF NECK OF UNSP FEMUR, INIT SNOMED Code(s): 818295619 Time with Patient: Less than 30
[2021-03-26 20:36] LABS: Glucose,Whole Blood 165 mg/dL (75-99)
[2021-03-26] MEDS: LOSARTAN 50 MG TAB PO SCH (20:54)
[2021-03-26] MEDS: amLODIPine 5 MG TAB PO SCH (20:54)
[2021-03-26] MEDS: PRAVASTATIN SODIUM 20 MG TAB PO SCH (20:54)
--- NOTE | 2021-03-26 21:07 | P.PN ---
Progress Note - Text Progress Note Date: 03/26/21 - Chief Complaint Fall Hospital course This is a pleasant 70-year-old patient follows with Dr. Mckeon. Chronic stable medical conditions include diabetes on insulin, GERD, hypertension, anxiety, depression, urinary incontinence, gout,. Patient is also had DVT in the right leg, arm, and a blood clot of the lung in the area starting in 2012. Patient's chronic and xarelto. Patient isn't a baseline fairly active. Patient did have a checkup including a stress test in October 2019 that was unremarkable. Patient is getting out of the car and she slipped on ice falling on her left hip. Patient has a left hip fracture now. While in the ER patient developed a squeezing sensation in the lower part of the sternum that lasted for about 10 minutes. No radiation. No aggravating or relieving factor. Pain subsided on its own. No shortness of breath. No dizziness, lightheadedness. Patient's at the bedside. February 23: Patient in overflow in the ER. of the bedside. Some period of the fracture site. No chest pain. Breathing stable. Eating some. Review of systems: Was done for constitutional, cardiovascular, GI, pulmonary. relevant finding as above Active Medications Allopurinol (Allopurinol 300 Mg Tab) 300 mg PO DAILY [facility] Last Admin: 03/26/21 08:05 Dose: 300 mg Documented by: Alprazolam (Alprazolam 0.5 Mg Tab) 0.5 mg PO BID PRN PRN Reason: Anxiety Amlodipine Besylate (Amlodipine 5 Mg Tab) 5 mg PO HS [facility] Last Admin: 03/26/21 20:54 Dose: 5 mg Documented by: Diphenoxylate HCl/Atropine (Diphenox-Atrop 2.5-0.025 Mg 1 Each Tab) 1 each PO BID [facility] Last Admin: 03/26/21 20:54 Dose: 1 each Documented by: Duloxetine HCl (Duloxetine Hcl 30 Mg Capsule.) 30 mg PO DAILY [facility] Last Admin: 03/26/21 08:05 Dose: 30 mg Documented by: Duloxetine HCl (Duloxetine Hcl 60 Mg Capsule.) 60 mg PO DAILY [facility] Last Admin: 03/26/21 08:05 Dose: 60 mg Documented by: Enoxaparin Sodium (Enoxaparin 100 Mg/Ml Syringe) 100 mg SQ Q12H [facility] Last Admin: 03/26/21 20:55 Dose: 100 mg Documented by: Hydromorphone HCl (Hydromorphone 1 Mg/Ml 1 Ml Syringe) 1 mg IVP Q3HR PRN PRN Reason: Moderate Pain Last Admin: 03/26/21 20:55 Dose: 1 mg Documented by: Sodium Chloride (Saline 0.9%) 1,000 mls @ 75 mls/hr IV .[id number] [facility] Last Admin: 03/26/21 17:02 Dose: Not Given Documented by: Insulin Aspart (Insulin Aspart (Novolog) 100 Unit/Ml Vial) 0 unit SQ ACHS [facility]; Protocol Last Admin: 03/26/21 20:54 Dose: 2 unit Documented by: Insulin Detemir (Insulin Detemir (Levemir) 100 Unit/Ml Syr) 80 unit SQ DAILY [facility] Last Admin: 03/26/21 08:09 Dose: 80 unit Documented by: Losartan Potassium (Losartan 50 Mg Tab) 100 mg PO [facility] Last Admin: 03/26/21 20:54 Dose: 100 mg Documented by: Naloxone HCl (Naloxone 0.4 Mg/Ml 1 Ml Vial) 0.2 mg IV Q2M PRN PRN Reason: Opioid Reversal Ondansetron HCl (Ondansetron 4 Mg/2 Ml Vial) 4 mg IVP Q8HR PRN PRN Reason: Nausea And Vomiting Oxybutynin Chloride (Oxybutynin Chloride 5 Mg Tab) 5 mg PO BID [facility] Last Admin: 03/26/21 20:54 Dose: 5 mg Documented by: Pantoprazole Sodium (Pantoprazole 40 Mg Tablet) 40 mg PO AC-BRKFST [facility] Last Admin: 03/26/21 06:40 Dose: 40 mg Documented by: Pravastatin Sodium (Pravastatin Sodium 20 Mg Tab) 20 mg PO [facility] Last Admin: 03/26/21 20:54 Dose: 20 mg Documented by: Pyridoxine HCl (Pyridoxine 50 Mg Tab) 100 mg PO DAILY [facility] Last Admin: 03/26/21 08:09 Dose: 100 mg Documented by: Past medical history to include: Diabetes, DVT PE about 3 episodes around 2012 and after GERD, hypertension, anxiety, urinary incontinence, depression, gout Social history: No history of smoking or alcohol. Lives with her . Family history: Diabetes, mother had heart condition Physical examination: VITAL SIGNS: 98.2, 83, 18, 156/78, 91% on 4 L GENERAL:, laying in bed, awake, comfortable EYES: Pupils equal. Conjunctiva normal. HEENT: External appearance of nose and ears normal, oral cavity grossly normal. NECK: JVD not raised; masses not palpable. HEART: First and second heart sounds are normal; no edema. LUNGS: Respiratory rate normal; clear to auscultation. ABDOMEN: Soft, nontender, liver spleen not palpable, no masses palpable. PSYCH: Alert and oriented x3; mood and affect normal. MUSCULAR skeletal: Limited range of motion of left hip. INVESTIGATIONS, reviewed in the clinical context: 2-D echocardiogram: EF 55-60%. Moderate concentric LVH. White count 13.4 hemoglobin 12.5 platelets 156 sodium 139 potassium 4.6 creatinine 0.69 AST 182 ALT 61 Troponin I less than 0.012 EKG tracing personally reviewed by me-normal sinus rhythm. Rate 82. Chest x-ray film personally reviewed by me-limited exam because of positioning and possibly expiratory film Computed tomography scan brain and spine without contrast: Mild cerebral atrophy. DJD just changes. No fractures reported. Left hip x-ray fracture. Impacted left femoral neck fracture. No dislocation. Assessment and plan: -Left femoral neck fracture secondary to a mechanical fall. Bedrest. Patient being followed by Dr. Roman. On subcu Lovenox -Lower sternal chest pain lasting for 10 minutes. Subsided on its own. No other cardiac characteristics. No EKG changes.:Possibly musculoskeletal from f all. Negative troponins Cardiology is consulted. Patient did have a negative stress test in October 2019. 2-D echo does not show any wall motion abnormality. -Morbid obesity BMI 40.4 Weight loss measures and follow with PCP -Diabetes mellitus type 2, chronic ligament insulin and Glucophage Hold Glucophage. Resume insulin 80 units subcu daily. Diabetic diet. Follow Accu-Cheks. 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 Patient chronically on xarelto 10 mg a day. We will hold off the same. Now on Lovenox 100 mg subcu every 12. Lovenox can be held 12 hours prior to surgery. This was discussed with Dr. Roman from orthopedics. Resume home medications. Hold xarelto. Lovenox subcu 100 mg every 12. Follow Accu-Cheks. Hold metformin. Cardiology consultation. 2-D echocardiogram. Troponin I. Cardiovascular perioperative assessment. Patient is medically stable to proceed for surgery pending negative troponin. Patient has a fair exercise tolerance. Patient has a negative stress test October 2019. Patient is a moderate risk for surgery with no need for any further cardiac intervention. This was discussed with the patient and at the bedside. Xarelto will be held. Lovenox. Thank you Dr. Roman
[2021-03-27] MEDS: HYDROmorphone 1 MG/ML 1 ML SYRINGE IVP PRN ×6 (00:02→23:16)
[2021-03-27 06:54] LABS: Glucose,Whole Blood 148 mg/dL (75-99)
[2021-03-27] MEDS: INSULIN ASPART (NovoLOG) 100 UNIT/ML VIAL SQ SCH ×4 (06:57→21:07)
[2021-03-27] MEDS: PANTOPRAZOLE 40 MG TABLET PO SCH (06:58)
[2021-03-27 08:52] LABS: Calcium 8.5 mg/dL (8.4-10.2)
[2021-03-27] MEDS ORDERED: MAGNESIUM HYDROXIDE 2,400 MG/10 ML CUP PO PRN (09:11)
[2021-03-27] MEDS ORDERED: diazePAM 5 MG TAB PO PRN (09:11)
[2021-03-27] MEDS ORDERED: HYDROmorphone 0.5 MG/0.5 ML SYRINGE IVP PRN ×2 (09:11)
[2021-03-27] MEDS ORDERED: traMADol 50 MG TAB PO PRN (09:11)
[2021-03-27] MEDS ORDERED: HYDROmorphone 0.2 MG/1 ML SYRINGE IVP PRN (09:11)
[2021-03-27] MEDS ORDERED: ACETAMINOPHEN TAB 325 MG TAB PO PRN (09:11)
[2021-03-27 09:13] LABS: Basophils % (A) 0 %; Eosinophils # (A) 0.3 k/uL (0-0.7); Eosinophils % (A) 3 %; HCT 37.1 % (34.0-46.0); HGB 11.8 gm/dL (11.4-16.0); Lymphocytes # (A) 1.1 k/uL (1.0-4.8); Lymphocytes % (A) 11 %; MCH 28.2 pg (25.0-35.0); MCHC 31.7 g/dL (31.0-37.0); MCV 88.8 fL (80.0-100.0); Mean Platelet Volume 7.7; Monocytes # (A) 0.5 k/uL (0-1.0); Monocytes % (A) 5 %; Neutrophils % (A) 79 %; Platelet Count 150 k/uL (150-450); RBC 4.17 m/uL (3.80-5.40); RDW 15.1 % (11.5-15.5); WBC 10.1 k/uL (3.8-10.6)
[2021-03-27] MEDS: PYRIDOXINE 50 MG TAB PO SCH (09:13)
[2021-03-27] MEDS: DULoxetine HCL 30 MG CAPSULE.DR PO SCH (09:14)
[2021-03-27] MEDS: OXYBUTYNIN CHLORIDE 5 MG TAB PO SCH ×2 (09:14→19:53)
[2021-03-27] MEDS: allopurinoL 300 MG TAB PO SCH (09:14)
[2021-03-27] MEDS: INSULIN DETEMIR (LEVEMIR) 100 UNIT/ML SYR SQ SCH (09:15)
[2021-03-27] MEDS: DULoxetine HCL 60 MG CAPSULE.DR PO SCH (09:15)
[2021-03-27] MEDS: ENOXAPARIN 100 MG/ML SYRINGE SQ SCH ×2 (09:15→20:01)
[2021-03-27] MEDS: DIPHENOX-ATROP 2.5-0.025 MG 1 EACH TAB PO SCH ×2 (09:22→19:54)
[2021-03-27] MEDS: SODIUM CHLORIDE 0.9% 1,000 ML IV SCH ×2 (09:23→20:02)
--- NOTE | 2021-03-27 10:00 | P.PN ---
Subjective Progress Note Date: 03/27/21 Principal diagnosis: Left hip fracture Patient is pleasant 62-year-old female seen at bedside this morning. She was admitted and we are following for left femoral neck fracture which plans are to proceed with surgical intervention tomorrow 03/28/2021 around 11 AM. She has no new complaints today. She continues to have left hip pain as expected. She denies new numbness or tingling down the left lower extremity. She has no calf pain. She denies fever, chills, chest pain, shortness breath, calf pain or other. Objective - Vital Signs Vital signs: Vital Signs Temp 98.5 F 03/27/21 03:42 Pulse 83 03/27/21 03:42 Resp 22 03/27/21 03:42 BP 146/75 03/27/21 03:42 Pulse Ox 92 L 03/27/21 03:42 Intake & Output 03/26/21 03/27/21 03/27/21 18:59 06:59 18:59 Intake Total 2960 118 Output Total 450 350 300 Balance 2510 -350 -182 Intake: IV 930 Invasive Line 1 20 Invasive Line 2 10 Sodium Chloride 0.9% 1, 900 000 ml @ 75 mls/hr IV . [id number] [facility] Rx#:[id number] Oral 2030 118 Output: Urine 450 350 300 Other: Voiding Method Indwelling Catheter Indwelling Catheter - Exam Exam of the lower extremities unchanged. There are no wounds to the left lower extremity. Inspection shows a shortened externally rotated left lower extremity. No erythema or effusion seen. Nontender at the knee, ankle and foot. She has painless range of motion of the knee, ankle and foot. Calf is soft and nontender. Neurovascular status intact with gross motor and sensation throughout the lower extremity. 2+ dorsalis pedis pulse and less than 2 second capillary refill is present. - Constitutional General appearance: Present: no acute distress - Labs CBC & Chem 7: 03/27/21 08:14 03/27/21 08:14 Labs: Abnormal Lab Results - Last 24 Hours (Table) 03/26/21 03/26/21 03/26/21 Range/Units 12:05 16:52 20:35 Neutrophils # (1.3-7.7) k/uL Sodium (137-145) mmol/L Glucose (74-99) mg/dL POC Glucose (mg/dL) 186 H 190 H 165 H (75-99) mg/dL 03/27/21 03/27/21 03/27/21 Range/Units 06:52 08:14 08:14 Neutrophils # 8.0 H (1.3-7.7) k/uL Sodium 135 L (137-145) mmol/L Glucose 161 H (74-99) mg/dL POC Glucose (mg/dL) 148 H (75-99) mg/dL Assessment and Plan (1) Hip fracture Narrative/Plan: Patient remains stable. Plan is to proceed with surgical intervention including a left hip hemiarthroplasty for her left hip fracture tomorrow, Friday, 03/17 around 11 AM. She is being followed by internal medicine as well as cardiology has cleared her to proceed with surgical intervention. The benefits, risks and possible complications have been reviewed with the patient. She desires to proceed. Procedure and consent have been ordered. She'll be nothing by mouth after midnight. Lovenox is also to be held 12 hours prior to surgery thus she should not get her evening dose tonight. She'll continue with pain management, DVT prophylaxis, and medical management. Current Visit: Yes Status: Acute Priority: Medium Code(s): S72.009A - FR ACTURE OF UNSP PART OF NECK OF UNSP FEMUR, INIT SNOMED Code(s): 915769260 Time with Patient: Less than 30
[2021-03-27 11:53] LABS: Glucose,Whole Blood 146 mg/dL (75-99)
[2021-03-27] MEDS ORDERED: BENZOCAINE/MENTHOL LOZENG 1 EACH LOZENGE MUCOUS MEM PRN (13:18)
--- NOTE | 2021-03-27 13:21 | P.PN ---
Subjective This is a pleasant 70-year-old female past medical history significant for type 2 diabetes, PE/DVT on Xarelto, hypertension, hyperlipidemia, former nicotine dependence. 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 We have been asked to see in consultation for chest pain. Patient seen in the emergency department after slipping on ice and falling on her left hip. Patient found to have acute Left impacted femoral neck fracture. Patient denies any chest pain, shortness of breath, palpitations, lightheadedness, dizziness, syncope or near syncope. She denies any history of coronary artery disease, [place], stroke. She denies any family history of heart disease. She denies any current tobacco use. She states she recently underwent stress testing in October 2020 at [facility] which she states was normal. DIAGNOSTICS EKG reveals sinus rhythm, heart rate 82, T wave inversion in lead III, no significant ST or T-wave abnormalities. Telemetry tracings indicate sinus mechanism Chest xray no acute cardiopulmonary process. Echocardiogram revealed EF 5560 percent, trace to mild mitral regurgitation, mild tricuspid regurgitation, mild pulmonary hypertension Laboratory reviewed, troponin negative 3 Records obtained from [facility]. Patient underwent Cardiolite stress test 11/08/2020 was negative for reversible ischemia. 03/27/2021 Patient seen at bedside, no acute distress. She denies any chest pain or shortness of breath. Records obtained from [facility] and reviewed. Blood pressure 146/75, heart rate 83, afebrile, saturations greater than 92% on 4 L nasal cannula. She's currently maintained on amlodipine 5 mg daily, losartan 100 mg nightly, pravastatin 20 mg nightly. Her Xarelto was on hold due to possible surgery today. PHYSICAL EXAMINATION Vitals reviewed CONSTITUTIONAL: No apparent distress. HEENT: Neck Supple. No JVD. CHEST EXAMINATION: Lungs are clear to auscultation. No chest wall tenderness is noted on palpation or with deep breathing. HEART EXAMINATION: Regular rate and rhythm. S1, S2 heard. No murmurs, gallops or rub. ABDOMEN: Soft, nontender. Positive bowel sounds. EXTREMITIES: 2+ peripheral pulses, no lower extremity edema and no calf tenderness. NEUROLOGIC EXAMINATION: Patient is awake, alert and oriented x3. ASSESSMENT Chest pain ruled out, patient denies chest pain Left femoral neck fracture secondary to a mechanical fall Type 2 diabetes PE/DVT on Xarelto Hypertension Hyperlipidemia Former nicotine dependence PLAN From a cardiology perspective, echocardiogram reviewed with preserved left ventricular systolic function, no significant wall motion abnormalities. Troponin negative x 3. EKG with no evidence of acute ischemia. Patient denies chest pain or shortness of breath. Patient is hemodynamically stable. Cardiolite stress test at [facility] 11/08/2020 was negative for reversible ischemia. Patient is able to perform >4 METs levels of activity and does not have any acute cardiac conditions at this time. There are no absolute contraindications to undergo surgery at this time. Patient may follow up with Dr. Houston in the outpatient setting. Nurse Practitioner note has been reviewed, I agree with a documented findings and plan of care. Patient was seen and examined. Objective - Vital Signs Vital signs: Vital Signs Temp 98.5 F 03/27/21 03:42 Pulse 83 03/27/21 03:42 Resp 22 03/27/21 03:42 BP 146/75 03/27/21 03:42 Pulse Ox 92 L 03/27/21 03:42 Intake & Output 03/26/21 03/27/21 03/27/21 18:59 06:59 18:59 Intake Total 2960 118 Output Total 450 350 300 Balance 2510 -350 -182 Intake: IV 930 Invasive Line 1 20 Invasive Line 2 10 Sodium Chloride 0.9% 1, 900 000 ml @ 75 mls/hr IV . [id number] [facility] Rx#:[id number] Oral 2030 118 Output: Urine 450 350 300 Other: Voiding Method Indwelling Catheter Indwelling Catheter - Labs CBC & Chem 7: 03/27/21 08:14 03/27/21 08:14 Labs: Abnormal Lab Results - Last 24 Hours (Table) 03/26/21 03/26/21 03/27/21 Range/Units 16:52 20:35 06:52 Neutrophils # (1.3-7.7) k/uL Sodium (137-145) mmol/L Glucose (74-99) mg/dL POC Glucose (mg/dL) 190 H 165 H 148 H (75-99) mg/dL 03/27/21 03/27/21 03/27/21 Range/Units 08:14 08:14 11:51 Neutrophils # 8.0 H (1.3-7.7) k/uL Sodium 135 L (137-145) mmol/L Glucose 161 H (74-99) mg/dL POC Glucose (mg/dL) 146 H (75-99) mg/dL
[2021-03-27] MEDS ORDERED: FUROSEMIDE 10 MG/ML 2 ML VIAL IV ONE (13:30)
[2021-03-27] MEDS: MULTIVITAMINS, THERA 1 EACH TAB PO SCH (13:42)
--- NOTE | 2021-03-27 13:42 | P.PN ---
Progress Note - Text Progress Note Date: 03/27/21 - Chief Complaint Fall Hospital course This is a pleasant 70-year-old patient follows with Dr. Mckeon. Chronic stable medical conditions include diabetes on insulin, GERD, hypertension, anxiety, depression, urinary incontinence, gout,. Patient is also had DVT in the right leg, arm, and a blood clot of the lung in the area starting in 2012. Patient's chronic and xarelto. Patient isn't a baseline fairly active. Patient did have a checkup including a stress test in October 2019 that was unremarkable. Patient is getting out of the car and she slipped on ice falling on her left hip. Patient has a left hip fracture now. While in the ER patient developed a squeezing sensation in the lower part of the sternum that lasted for about 10 minutes. No radiation. No aggravating or relieving factor. Pain subsided on its own. No shortness of breath. No dizziness, lightheadedness. Patient's at the bedside. February 23: Patient in overflow in the ER. of the bedside. Some period of the fracture site. No chest pain. Breathing stable. Eating some. February 24: Laying in bed. Some pain at the fracture site. On nasal cannula. Eating okay. No chest pain. Surgery being scheduled for tomorrow. Would hold the morning dose of Lovenox. Review of systems: Was done for constitutional, cardiovascular, GI, pulmonary. relevant finding as above Active Medications Acetaminophen (Acetaminophen Tab 325 Mg Tab) 650 mg PO Q4HR PRN PRN Reason: Pain Scale 1 to 5 Hydrocodone Bitart/Acetaminophen (Hydrocodone/Apap 5-325mg 1 Each Tab) 1 each PO Q6HR PRN PRN Reason: Pain Scale 1 to 5 Hydrocodone Bitart/Acetaminophen (Hydrocodone/Apap 10-325mg 1 Each Tab) 1 each PO Q6H PRN PRN Reason: Pain Scale 6 to 10 Allopurinol (Allopurinol 300 Mg Tab) 300 mg PO DAILY [facility] Last Admin: 03/27/21 09:14 Dose: 300 mg Documented by: Alprazolam (Alprazolam 0.5 Mg Tab) 0.5 mg PO BID PRN PRN Reason: Anxiety Last Admin: 03/27/21 09:14 Dose: 0.5 mg Documented by: Amlodipine Besylate (Amlodipine 5 Mg Tab) 5 mg PO HS [facility] Last Admin: 03/26/21 20:54 Dose: 5 mg Documented by: Benzocaine/Menthol (Benzocaine/Menthol Lozeng 1 Each Lozenge) 1 each MUCOUS MEM Q4HR PRN PRN Reason: Cough Diazepam (Diazepam 5 Mg Tab) 2.5 mg PO Q8HR PRN PRN Reason: Mild Spasms Diphenoxylate HCl/Atropine (Diphenox-Atrop 2.5-0.025 Mg 1 Each Tab) 1 each PO BID [facility] Last Admin: 03/27/21 09:22 Dose: 1 each Documented by: Duloxetine HCl (Duloxetine Hcl 30 Mg Capsule.) 30 mg PO DAILY [facility] Last Admin: 03/27/21 09:14 Dose: 30 mg Documented by: Duloxetine HCl (Duloxetine Hcl 60 Mg Capsule.) 60 mg PO DAILY [facility] Last Admin: 03/27/21 09:15 Dose: 60 mg Documented by: Enoxaparin Sodium (Enoxaparin 100 Mg/Ml Syringe) 100 mg SQ Q12H [facility] Last Admin: 03/27/21 09:15 Dose: 100 mg Documented by: Hydromorphone HCl (Hydromorphone 1 Mg/Ml 1 Ml Syringe) 1 mg IVP Q3HR PRN PRN Reason: Moderate Pain Last Admin: 03/27/21 13:16 Dose: 1 mg Documented by: Hydromorphone HCl (Hydromorphone 0.2 Mg/1 Ml Syringe) 0.2 mg IVP Q3HR PRN PRN Reason: Pain Scale 4 to 6 Hydromorphone HCl (Hydromorphone 0.5 Mg/0.5 Ml Syringe) 0.125 mg IVP Q3HR PRN PRN Reason: Pain Scale 1 to 3 Hydromorphone HCl (Hydromorphone 0.5 Mg/0.5 Ml Syringe) 0.5 mg IVP Q3HR PRN PRN Reason: Pain Scale 7 to 10 Sodium Chloride (Saline 0.9%) 1,000 mls @ 75 mls/hr IV .[id number] [facility] Last Admin: 03/27/21 09:23 Dose: Not Given Documented by: Insulin Aspart (Insulin Aspart (Novolog) 100 Unit/Ml Vial) [address] [facility]; Protocol Last Admin: 03/27/21 06:57 Dose: 1 unit Documented by: Insulin Detemir (Insulin Detemir (Levemir) 100 Unit/Ml Syr) 80 unit SQ DAILY [facility] Last Admin: 03/27/21 09:15 Dose: 80 unit Documented by: Losartan Potassium (Losartan 50 Mg Tab) 100 mg PO [facility] Last Admin: 03/26/21 20:54 Dose: 100 mg Documented by: Magnesium Hydroxide (Magnesium Hydroxide 2,400 Mg/10 Ml Cup) 2,400 mg PO DAILY PRN PRN Reason: Constipation Multivitamins (Multivitamins, Thera 1 Each Tab) 1 each PO DAILY@1200 [facility] Naloxone HCl (Naloxone 0.4 Mg/Ml 1 Ml Vial) 0.2 mg IV Q2M PRN PRN Reason: Opioid Reversal Ondansetron HCl (Ondansetron 4 Mg/2 Ml Vial) 4 mg IVP Q8HR PRN PRN Reason: Nausea And Vomiting Oxybutynin Chloride (Oxybutynin Chloride 5 Mg Tab) 5 mg PO BID [facility] Last Admin: 03/27/21 09:14 Dose: 5 mg Documented by: Pantoprazole Sodium (Pantoprazole 40 Mg Tablet) 40 mg PO -BRKFST [facility] Last Admin: 03/27/21 06:58 Dose: 40 mg Documented by: Pravastatin Sodium (Pravastatin Sodium 20 Mg Tab) 20 mg PO [facility] Last Admin: 03/26/21 20:54 Dose: 20 mg Documented by: Pyridoxine HCl (Pyridoxine 50 Mg Tab) 100 mg PO DAILY [facility] Last Admin: 03/27/21 09:13 Dose: 100 mg Documented by: Senna/Docusate Sodium (Sennosides-Docusate Sodium 1 Each Tab) 2 each PO [facility] Tramadol HCl (Tramadol 50 Mg Tab) 50 mg PO Q6HR PRN PRN Reason: Pain Scale 1 to 5 Past medical history to include: Diabetes, DVT PE about 3 episodes around 2012 and after GERD, hypertension, anxiety, urinary incontinence, depression, gout Social history: No history of smoking or alcohol. Lives with her . Family history: Diabetes, mother had heart condition Physical examination: VITAL SIGNS: 98.5, 83, 22, 146/75, 92% on 4 L GENERAL:, laying in bed, awake, comfortable EYES: Pupils equal. Conjunctiva normal. HEENT: External appearance of nose and ears normal, oral cavity grossly normal. NECK: JVD not raised; masses not palpable. HEART: First and second heart sounds are normal; no edema. LUNGS: Respiratory rate normal; clear to auscultation. ABDOMEN: Soft, nontender, liver spleen not palpable, no masses palpable. PSYCH: Alert and oriented x3; mood and affect normal. MUSCULAR skeletal: Limited range of motion of left hip. INVESTIGATIONS, reviewed in the clinical context: 2-D echocardiogram: EF 55-60%. Moderate concentric LVH. White count 13.4 hemoglobin 12.5 platelets 156 sodium 139 potassium 4.6 creatinine 0.69 AST 182 ALT 61 Troponin I less than 0.012 EKG tracing personally reviewed by me-normal sinus rhythm. Rate 82. Chest x-ray film personally reviewed by me-limited exam because of positioning and possibly expiratory film Computed tomography scan brain and spine without contrast: Mild cerebral atrophy. DJD just changes. No fractures reported. Left hip x-ray fracture. Impacted left femoral neck fracture. No dislocation. Assessment and plan: -Left femoral neck fracture secondary to a mechanical fall.: Slow to respond Bedrest. Orthopedics On subcu Lovenox. Plan for surgery tomorrow -Lower sternal chest pain lasting for 10 minutes. Subsided on its own. No other cardiac characteristics. No EKG changes.:Possibly musculoskeletal from fall. Negative troponins Cardiology is consulted. Patient did have a negative stress test in October 2019. 2-D echo does not show any wall motion abnormality. -Morbid obesity BMI 40.4 Weight loss measures and follow with PCP -Diabetes mellitus type 2, chronic ligament insulin and Glucophage Hold Glucophage. Resume insulin 80 units subcu daily. Diabetic diet. Follow Accu-Cheks. 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 Patient chronically on xarelto 10 mg a day. We will hold off the same. Now on Lovenox 100 mg subcu every 12. Lovenox can be held 12 hours prior to surgery. This was discussed with Dr. Roman from orthopedics. Cardiovascular perioperative assessment. Patient is medically stable to proceed for surgery pending negative troponin. Patient has a fair exercise tolerance. Patient has a negative stress test October 2019. Patient is a moderate risk for surgery with no need for any further cardiac intervention. This was discussed with the patient and at the bedside. Xarelto will be held. Lovenox. Hold morning dose of Lovenox. Other medications to continue. Discussed with the patient. Continue with Levemir Thank you Dr. Roman
[2021-03-27 16:29] LABS: Glucose,Whole Blood 115 mg/dL (75-99)
[2021-03-27] MEDS: PRAVASTATIN SODIUM 20 MG TAB PO SCH (19:53)
[2021-03-27] MEDS: HYDROcodone/APAP 10-325MG 1 EACH TAB PO PRN (19:53)
[2021-03-27] MEDS: LOSARTAN 50 MG TAB PO SCH (19:54)
[2021-03-27] MEDS: SENNOSIDES-DOCUSATE SODIUM 1 EACH TAB PO SCH (19:54)
[2021-03-27] MEDS: amLODIPine 5 MG TAB PO SCH (19:54)
[2021-03-27 20:23] LABS: Glucose,Whole Blood 137 mg/dL (75-99)
[2021-03-28] MEDS: HYDROmorphone 1 MG/ML 1 ML SYRINGE IVP PRN ×2 (03:42→18:01)
[2021-03-28] MEDS: HYDROcodone/APAP 10-325MG 1 EACH TAB PO PRN (05:30)
[2021-03-28] MEDS: PANTOPRAZOLE 40 MG TABLET PO SCH (05:31)
[2021-03-28 05:52] LABS: Glucose,Whole Blood 107 mg/dL (75-99)
[2021-03-28] MEDS: INSULIN ASPART (NovoLOG) 100 UNIT/ML VIAL SQ SCH ×4 (06:19→20:41)
[2021-03-28 07:24] LABS: Basophils % (A) 0 %; Eosinophils # (A) 0.3 k/uL (0-0.7); Eosinophils % (A) 2 %; HCT 37.2 % (34.0-46.0); HGB 11.8 gm/dL (11.4-16.0); Lymphocytes # (A) 1.1 k/uL (1.0-4.8); Lymphocytes % (A) 10 %; MCHC 31.7 g/dL (31.0-37.0); MCV 88.4 fL (80.0-100.0); Monocytes # (A) 0.7 k/uL (0-1.0); Monocytes % (A) 6 %; Neutrophils # (A) 9.4 k/uL (1.3-7.7); Neutrophils % (A) 80 %; Platelet Count 157 k/uL (150-450); RBC 4.21 m/uL (3.80-5.40); RDW 14.7 % (11.5-15.5); WBC 11.8 k/uL (3.8-10.6)
[2021-03-28 07:35] LABS: Partial Thromboplastin Time 25.6 sec (22.0-30.0); Prothrombin Time 11.1 sec (9.0-12.0)
[2021-03-28 07:37] LABS: African American GFR (CKD) >90 (>60 ml/min/1.73 sqM); Anion Gap 7 mmol/L; Blood Urea Nitrogen 14 mg/dL (7-17); Calcium 8.6 mg/dL (8.4-10.2); Carbon Dioxide 26 mmol/L (22-30); Chloride 104 mmol/L (98-107); Glucose 131 mg/dL (74-99); Non-African American GFR(CKD) 80 (>60 ml/min/1.73 sqM); Potassium 3.7 mmol/L (3.5-5.1); Sodium 137 mmol/L (137-145)
[2021-03-28] MEDS: INSULIN DETEMIR (LEVEMIR) 100 UNIT/ML SYR SQ SCH (07:55)
[2021-03-28] MEDS: OXYBUTYNIN CHLORIDE 5 MG TAB PO SCH ×2 (08:30→20:41)
[2021-03-28] MEDS: DULoxetine HCL 30 MG CAPSULE.DR PO SCH (08:30)
[2021-03-28] MEDS: allopurinoL 300 MG TAB PO SCH (08:30)
[2021-03-28] MEDS: DIPHENOX-ATROP 2.5-0.025 MG 1 EACH TAB PO SCH ×2 (08:30→20:41)
[2021-03-28] MEDS: PYRIDOXINE 50 MG TAB PO SCH (08:30)
[2021-03-28] MEDS: DULoxetine HCL 60 MG CAPSULE.DR PO SCH (08:30)
[2021-03-28] MEDS ORDERED: IV FLUID CONTINUATION 1,000 ML IV ONE (10:20)
[2021-03-28 10:35] LABS: Glucose,Whole Blood 132 mg/dL (75-99)
[2021-03-28] MEDS ORDERED: IPRATROPIUM-ALBUTEROL 3 ML NEB INHALATION STA (10:40)
[2021-03-28] MEDS ORDERED: ONDANSETRON 4 MG/2 ML VIAL IVP ONE ×3 (10:44→15:41)
[2021-03-28] MEDS ORDERED: DEXAMETHASONE SOD PHOSPHATE 4 MG/ML 1 ML VIAL IVP ONE (10:45)
[2021-03-28] MEDS ORDERED: LIDOCAINE 1% INJ 10MG/ML (20 ML MDV) ONE (11:54)
[2021-03-28] MEDS ORDERED: GLYCOPYRROLATE 0.2 MG/ML 2 ML VIAL ONE (11:54)
[2021-03-28] MEDS ORDERED: MIDAZOLAM 2 MG/2 ML VIAL ONE (11:54)
[2021-03-28] MEDS ORDERED: fentaNYL (PF) 50 MCG/ML 2 ML AMP ONE (11:54)
[2021-03-28] MEDS ORDERED: SUCCINYLCHOLINE CHLORIDE 100 MG/5 ML SYR IV ONE (11:54)
[2021-03-28] MEDS ORDERED: KETAMINE 10 MG/ML 20 ML VIAL ONE (11:54)
[2021-03-28] MEDS ORDERED: ROCURONIUM 10 MG/ML (5 ML VIAL) IV ONE (11:54)
[2021-03-28] MEDS ORDERED: NEOSTIGMINE 1 MG/ML 10 ML VIAL ONE (11:54)
[2021-03-28] MEDS ORDERED: PHENYLEPHRINE-0.9% NACL SYG 1,000 MCG/10 ML SYRINGE ONE (11:54)
[2021-03-28] MEDS ORDERED: PROPOFOL 10 MG/ML 20 ML VIAL IV ONE (11:54)
[2021-03-28] MEDS ORDERED: ceFAZolin 3,000 MG in SODIUM CHLORIDE 0.9% IRRIGATIO 3,000 ML IRRIGATION ONE (12:34)
[2021-03-28 14:09] LABS: Glucose,Whole Blood 170 mg/dL (75-99)
[2021-03-28] MEDS ORDERED: ALBUTEROL NEBULIZED 2.5 MG/3 ML INHALATION ONE (14:18)
--- NOTE | 2021-03-28 14:40 | XR ---
EXAMINATION TYPE: XR Hip Limited LT DATE OF EXAM: 03/28/2021 CLINICAL HISTORY: Left hip pain and osteoarthritis. TECHNIQUE: Single AP portable view of left hip is obtained immediately postoperatively. COMPARISON: None. FINDINGS: Metallic hardware from left hip arthroplasty is seen and appears satisfactory in alignment and position. There is evidence of recent surgery with subcutaneous gas noted laterally. Overlying blanket material is present. IMPRESSION: Metallic hardware from left hip arthroplasty is satisfactory in position.
[2021-03-28] MEDS ORDERED: LIDOCAINE 1% (10MG/ML) FOR IV START INTRADERMA PRN (15:41)
[2021-03-28] MEDS ORDERED: HYDROmorphone 0.5 MG/0.5 ML SYRINGE IVP PRN (15:41)
[2021-03-28] MEDS: MULTIVITAMINS, THERA 1 EACH TAB PO SCH (15:50)
[2021-03-28] MEDS: LACTATED RINGERS 1,000 ML IV SCH (15:50)
[2021-03-28 16:34] LABS: Glucose,Whole Blood 184 mg/dL (75-99)
[2021-03-28] MEDS: SODIUM CHLORIDE 0.9% 1,000 ML IV SCH (17:19)
--- NOTE | 2021-03-28 18:46 | P.PN ---
Progress Note - Text Progress Note Date: 03/28/21 - Chief Complaint Fall Hospital course This is a pleasant 70-year-old patient follows with Dr. Mckeon. Chronic stable medical conditions include diabetes on insulin, GERD, hypertension, anxiety, depression, urinary incontinence, gout,. Patient is also had DVT in the right leg, arm, and a blood clot of the lung in the area starting in 2012. Patient's chronic and xarelto. Patient isn't a baseline fairly active. Patient did have a checkup including a stress test in October 2019 that was unremarkable. Patient is getting out of the car and she slipped on ice falling on her left hip. Patient has a left hip fracture now. While in the ER patient developed a squeezing sensation in the lower part of the sternum that lasted for about 10 minutes. No radiation. No aggravating or relieving factor. Pain subsided on its own. No shortness of breath. No dizziness, lightheadedness. Patient's at the bedside. February 23: Patient in overflow in the ER. of the bedside. Some period of the fracture site. No chest pain. Breathing stable. Eating some. February 24: Laying in bed. Some pain at the fracture site. On nasal cannula. Eating okay. No chest pain. Surgery being scheduled for tomorrow. Would hold the morning dose of Lovenox. February 25: Patient underwent surgery today. Some pain at the operative site. No nausea vomiting. No chest pain. In bed. Review of systems: Was done for constitutional, cardiovascular, GI, pulmonary. relevant finding as above Active Medications Acetaminophen (Acetaminophen Tab 325 Mg Tab) 650 mg PO Q4HR PRN PRN Reason: Pain Scale 1 to 5 Hydrocodone Bitart/Acetaminophen (Hydrocodone/Apap 5-325mg 1 Each Tab) 1 each PO Q6HR PRN PRN Reason: Pain Scale 1 to 5 Hydrocodone Bitart/Acetaminophen (Hydrocodone/Apap 10-325mg 1 Each Tab) 1 each PO Q6H PRN PRN Reason: Pain Scale 6 to 10 Last Admin: 03/28/21 05:30 Dose: 1 each Documented by: Allopurinol (Allopurinol 300 Mg Tab) 300 mg PO DAILY [facility] Last Admin: 03/28/21 08:30 Dose: 300 mg Documented by: Alprazolam (Alprazolam 0.5 Mg Tab) 0.5 mg PO BID PRN PRN Reason: Anxiety Last Admin: 03/27/21 09:14 Dose: 0.5 mg Documented by: Amlodipine Besylate (Amlodipine 5 Mg Tab) 5 mg PO [facility] Last Admin: 03/27/21 19:54 Dose: 5 mg Documented by: Benzocaine/Menthol (Benzocaine/Menthol Lozeng 1 Each Lozenge) 1 each MUCOUS MEM Q4HR PRN PRN Reason: Cough Last Admin: 03/27/21 13:41 Dose: 1 each Documented by: Diazepam (Diazepam 5 Mg Tab) 2.5 mg PO Q8HR PRN PRN Reason: Mild Spasms Last Admin: 03/27/21 19:54 Dose: 2.5 mg Documented by: Diphenoxylate HCl/Atropine (Diphenox-Atrop 2.5-0.025 Mg 1 Each Tab) 1 each PO BID [facility] Last Admin: 03/28/21 08:30 Dose: 1 each Documented by: Duloxetine HCl (Duloxetine Hcl 30 Mg Capsule.) 30 mg PO DAILY [facility] Last Admin: 03/28/21 08:30 Dose: 30 mg Documented by: Duloxetine HCl (Duloxetine Hcl 60 Mg Capsule.Dr) 60 mg PO DAILY [facility] Last Admin: 03/28/21 08:30 Dose: 60 mg Documented by: Enoxaparin Sodium (Enoxaparin 40 Mg/0.4 Ml Syringe) 40 mg SQ DAILY [facility] Hydromorphone HCl (Hydromorphone 1 Mg/Ml 1 Ml Syringe) 1 mg IVP Q3HR PRN PRN Reason: Moderate Pain Last Admin: 03/28/21 18:01 Dose: 1 mg Documented by: Hydromorphone HCl (Hydromorphone 0.2 Mg/1 Ml Syringe) 0.2 mg IVP Q3HR PRN PRN Reason: Pain Scale 4 to 6 Hydromorphone HCl (Hydromorphone 0.5 Mg/0.5 Ml Syringe) 0.125 mg IVP Q3HR PRN PRN Reason: Pain Scale 1 to 3 Hydromorphone HCl (Hydromorphone 0.5 Mg/0.5 Ml Syringe) 0.5 mg IVP Q3HR PRN PRN Reason: Pain Scale 7 to 10 Last Admin: 03/28/21 14:50 Dose: 0.5 mg Documented by: Hydromorphone HCl (Hydromorphone 0.5 Mg/0.5 Ml Syringe) 0.5 mg IVP Q5M PRN PRN Reason: Phase I - Pain Control Stop: 03/28/21 23:00 Sodium Chloride (Saline 0.9%) 1,000 mls @ 75 mls/hr IV .[id number] [facility] Last Admin: 03/28/21 17:19 Dose: 75 mls/hr Documented by: Cefazolin Sodium 2 gm/ Sodium (Chloride) 50 mls @ 100 mls/hr IVPB Q8HR [facility] Stop: 03/29/21 00:29 Last Admin: 03/28/21 12:01 Dose: 50 mls Documented by: Lactated Ringer's (Lactated Ringers) 1,000 mls @ 20 mls/hr IV .Q24H [facility] Last Admin: 03/28/21 15:50 Dose: Not Given Documented by: Insulin Aspart (Insulin Aspart (Novolog) 100 Unit/Ml Vial) 0 unit SQ ACHS [facility]; Protocol Last Admin: 03/28/21 17:19 Dose: Not Given Documented by: Insulin Detemir (Insulin Detemir (Levemir) 100 Unit/Ml Syr) 80 unit SQ DAILY [facility] Last Admin: 03/28/21 07:55 Dose: Not Given Documented by: Lidocaine HCl (Lidocaine 1% (10mg/Ml) For Iv Start) 0.1 ml INTRADERMA PER PROTOCOL PRN PRN Reason: IV Start Losartan Potassium (Losartan 50 Mg Tab) 100 mg PO HS [facility] Last Admin: 03/27/21 19:54 Dose: 100 mg Documented by: Magnesium Hydroxide (Magnesium Hydroxide 2,400 Mg/10 Ml Cup) 2,400 mg PO DAILY PRN PRN Reason: Constipation Multivitamins (Multivitamins, Thera 1 Each Tab) 1 each PO DAILY@1200 [facility] Last Admin: 03/28/21 15:50 Dose: Not Given Documented by: Naloxone HCl (Naloxone 0.4 Mg/Ml 1 Ml Vial) 0.2 mg IV Q2M PRN PRN Reason: Opioid Reversal Ondansetron HCl (Ondansetron 4 Mg/2 Ml Vial) 4 mg IVP Q8HR PRN PRN Reason: Nausea And Vomiting Oxybutynin Chloride (Oxybutynin Chloride 5 Mg Tab) 5 mg PO BID [facility] Last Admin: 03/28/21 08:30 Dose: 5 mg Documented by: Pantoprazole Sodium (Pantoprazole 40 Mg Tablet) 40 mg PO AC-BRKFST [facility] Last Admin: 03/28/21 05:31 Dose: 40 mg Documented by: Pravastatin Sodium (Pravastatin Sodium 20 Mg Tab) 20 mg PO [facility] Last Admin: 03/27/21 19:53 Dose: 20 mg Documented by: Pyridoxine HCl (Pyridoxine 50 Mg Tab) 100 mg PO DAILY [facility] Last Admin: 03/28/21 08:30 Dose: 100 mg Documented by: Senna/Docusate Sodium (Sennosides-Docusate Sodium 1 Each Tab) 2 each PO [facility] Last Admin: 03/27/21 19:54 Dose: 2 each Documented by: Tramadol HCl (Tramadol 50 Mg Tab) 50 mg PO Q6HR PRN PRN Reason: Pain Scale 1 to 5 Past medical history to include: Diabetes, DVT PE about 3 episodes around 2012 and after GERD, hypertension, anxiety, urinary incontinence, depression, gout Social history: No history of smoking or alcohol. Lives with her . Family history: Diabetes, mother had heart condition Physical examination: VITAL SIGNS: 97.8, 94, 16, 146/71, 91% on 4 L GENERAL:, laying in bed, awake, EYES: Pupils equal. Conjunctiva normal. HEENT: External appearance of nose and ears normal, oral cavity grossly normal. NECK: JVD not raised; masses not palpable. HEART: First and second heart sounds are normal; no edema. LUNGS: Respiratory rate normal; clear to auscultation. ABDOMEN: Soft, nontender, liver spleen not palpable, no masses palpable. PSYCH: Alert and oriented x3; mood and affect normal. MUSCULAR skeletal: Limited range of motion of left hip. INVESTIGATIONS, reviewed in the clinical context: March 28: White count 10.8 hemoglobin 11.8 potassium 3.7 crit 0.77. Accu- Cheks 132, 170, 184 2-D echocardiogram: EF 55-60%. Moderate concentric LVH. White count 13.4 hemoglobin 12.5 platelets 156 sodium 139 potassium 4.6 creatinine 0.69 AST 182 ALT 61 Troponin I less than 0.012 EKG tracing personally reviewed by me-normal sinus rhythm. Rate 82. Chest x-ray film personally reviewed by me-limited exam because of positioning and possibly expiratory film Computed tomography scan brain and spine without contrast: Mild cerebral atrophy. DJD just changes. No fractures reported. Left hip x-ray fracture. Impacted left femoral neck fracture. No dislocation. Assessment and plan: -Left femoral neck fracture secondary to a mechanical fall.: Bedrest. Orthopedics underwent surgery today on August 26. -Lower sternal chest pain lasting for 10 minutes. Subsided on its own. No other cardiac characteristics. No EKG changes.:Possibly musculoskeletal from fall. Negative troponins Cardiology.negative stress test in October 2019. 2-D echo does not show any wall motion abnormality. -Morbid obesity BMI 40.4 Weight loss measures and follow with PCP -Diabetes mellitus type 2, chronic on insulin and Glucophage Hold Glucophage. Resume insulin 80 units subcu daily. Diabetic diet. Follow Accu-Cheks. 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 Patient chronically on xarelto 10 mg a day. We will hold off the same. Now on Lovenox 100 mg subcu every 12. Lovenox can be held 12 hours prior to surgery. This was discussed with Dr. Roman from orthopedics. Continue current medications. Anticoagulation will be resumed when okay with orthopedics. Discussed with patient. Thank you Dr. Roman
[2021-03-28 20:29] LABS: Glucose,Whole Blood 292 mg/dL (75-99)
[2021-03-28] MEDS: SENNOSIDES-DOCUSATE SODIUM 1 EACH TAB PO SCH (20:41)
[2021-03-28] MEDS: LOSARTAN 50 MG TAB PO SCH (20:41)
[2021-03-28] MEDS: amLODIPine 5 MG TAB PO SCH (20:41)
[2021-03-28] MEDS: PRAVASTATIN SODIUM 20 MG TAB PO SCH (20:41)
--- NOTE | 2021-03-28 20:53 | OP ---
OPERATIVE REPORT DATE OF PROCEDURE: 03/28/2021. SURGEON: Brian Roman MD. BLACK TOP RAKER: Oneil ROMERO. PREOPERATIVE DIAGNOSIS: Left displaced subcapital femoral neck fracture. POSTOPERATIVE DIAGNOSIS: Left displaced subcapital femoral neck fracture. PROCEDURE PERFORMED: Left hip hemiarthroplasty. ANESTHESIA: General endotracheal. ESTIMATED BLOOD LOSS: Was 200 mL. TOURNIQUET: None. DRAINS: None. COMPLICATIONS: None apparent. DISPOSITION: Postanesthesia care unit. INDICATIONS: Georgie is a very pleasant 70-year-old female who slipped and fell on the ice approximately 2 days ago. She was brought via ambulance to [facility]. Workup including x-rays revealed a left displaced subcapital femoral neck fracture. She was admitted to my service. She does have a fairly significant history of DVT. She was on Eliquis for anticoagulation. She was admitted to my service. The internal medicine service and cardiology service were consulted and saw her for preoperative clearance. She was cleared preoperatively by both Internal Medicine and Cardiology. We did switch her to Lovenox and held the Lovenox 12 hours before the operation. She is an independent ambulator at home. She did sustain a right femoral shaft fracture approximately a year ago where she underwent retrograde femoral nail for that fracture. The recommendation for left hip was for left hip hemiarthroplasty. Georgie and her family would like to proceed with the procedure. The risks of procedure were discussed with her in detail. These risks include, but are not limited to risk of infection, nerve damage, bleeding, pain, and a small risk of deep vein thrombosis which could lead to fatal pulmonary emboli. Further risks include instability in the implant, periprosthetic fracture, and the possibility for deep infection which could require further operation. All of her questions with regard to the procedure were answered to her satisfaction. Appropriate informed consent was obtained. DESCRIPTION OF THE PROCEDURE: The patient was identified in the preoperative holding area. Surgical site was marked by both the patient and myself. She was given 2 grams of Ancef IV for prophylactic purposes. She was then transported to the operative suite. She was placed supine on the operative table. A general anesthetic was then administered and dosed per the anesthesia without apparent complication. The patient was then placed in the right lateral decubitus position, well-padded in preparation for surgery. Great care was taken to ensure that her legs were appropriately padded. A well-padded axillary roll was placed as well. The patient's left lower extremity was then prepped and draped in usual sterile fashion. Standard surgical pause undertaken to ensure that we were operating on the correct site and that appropriate preoperative antibiotics were given. All staff in the room were in agreement and we proceeded. A 10-15 cm incision centered over the tip of the greater trochanter was then made with a marking pen. Incision was then made with a 10 blade scalpel. Dissection carried down sharply to the tensor fascia. The tensor fascia was then incised in line with the incision. A Charnley retractor was then placed. This gave me excellent exposure to the underlying trochanteric bursa. The bursa was excised sharply. The raphae between the anterior 1/3 and posterior 2/3 of the gluteus medius was identified. I then did a Hardinge type anterolateral approach. The anterior 1/3 of the gluteus medius, gluteus minimus and capsule were dissected off the greater trochanter and retracted anteriorly. This gave me excellent exposure to the femoral neck. I then utilized the guide to erin for a freshened femoral neck cut. The reciprocating saw was then utilized to freshen the femoral neck cut. I then removed the [place] fractured femoral head. This was done utilizing the corkscrew type device. The [place] femoral head was removed and then it was sized on the back table, measured 48 mm. A 48 mm trial head was then placed into the acetabulum. It had an excellent suction fit. The acetabulum was also inspected for any loose bodies. There were no loose pieces noted. The acetabular cartilage was in very good condition. I then proceeded with preparation of the proximal femur. The leg was then flexed and externally rotated. This gave me excellent exposure to the proximal femur. The primer boxer was then utilized to gain access to the femoral canal. The starting reamer was then placed down the femoral canal. I then proceeded to ream the femoral canal. Started with a 7 mm reamer and incrementally increased in 1 mm increments up to a 9 mm reamer. Good chatter was encountered at with a 9 mm reamer. I then proceeded to broach the proximal canal. I started with a size 7 broach. This was placed in approximately 15 degrees of anteversion. I then incrementally increased up to a size 9 broach. The broach handle was then left in place. I started with a -3 neck and a 48 mm trial head. The hip was then reduced. It was fairly difficult reduction. The hip was very stable, came through full range of motion. The leg lengths were approximately equal. The bone hook was then utilized to carefully re- dislocate the hip. I had made the decision to proceed with those components. I had the Kath registration representative open a Kath echo collared size 9 fracture stem, a -3 neck and a 48 mm monopolar head. The real stem was then impacted into the canal in approximately 15 degrees of anteversion. The Lopez taper was dried thoroughly. The neck and head were assembled on the back table and then this was impacted onto the stem with a dried Lopez taper. The hip was then reduced. Again it was a fairly difficult reduction. It had very minimal Shuck. The hip was stable throughout a full range of motion. There was no instability noted. At this point in time, no further work was deemed necessary. The hip was thoroughly irrigated with sterile saline solution via pulse lavage with antibiotic added. The gluteus medius, gluteus minimus and anterior capsule were repaired back to the greater trochanter utilizing #5 Ethibond transosseous suture. The raphae between the anterior 1/3 and posterior 2/3 of the gluteus medius was then were then repaired with 0 Vicryl interrupted suture. Again the wound was thoroughly irrigated with sterile saline solution with antibiotic add. The Charnley retractor was removed. The tensor fascia was closed with a running #2 Quill suture. Again the wound was thoroughly irrigated at this point. The subcutaneous tissue was closed with 2-0 Vicryl interrupted suture. The skin was closed with a running 3-0 Quill suture. Dermabond was applied to the incision. Sterile compressive dressing was then applied. The patient was placed into a hip abduction pillow. General anesthesia was reversed without complication. All sponge and needle counts were deemed correct prior to closure. The patient tolerated the procedure without apparent complication. She was transferred recovery room in stable condition. MMMARYCHUYL / JOSEMANUELN: [id number] /
[2021-03-29] MEDS: SODIUM CHLORIDE 0.9% 1,000 ML IV SCH ×2 (01:13→21:31)
[2021-03-29] MEDS: HYDROcodone/APAP 5-325MG 1 EACH TAB PO PRN ×2 (03:30→19:55)
[2021-03-29 07:09] LABS: Glucose,Whole Blood 268 mg/dL (75-99)
[2021-03-29] MEDS: HYDROcodone/APAP 10-325MG 1 EACH TAB PO PRN ×2 (08:19→16:26)
[2021-03-29] MEDS: DULoxetine HCL 30 MG CAPSULE.DR PO SCH (08:19)
[2021-03-29] MEDS: PYRIDOXINE 50 MG TAB PO SCH (08:19)
[2021-03-29] MEDS: allopurinoL 300 MG TAB PO SCH (08:20)
[2021-03-29] MEDS: DIPHENOX-ATROP 2.5-0.025 MG 1 EACH TAB PO SCH ×2 (08:20→19:56)
[2021-03-29] MEDS: MULTIVITAMINS, THERA 1 EACH TAB PO SCH (08:21)
[2021-03-29] MEDS: PANTOPRAZOLE 40 MG TABLET PO SCH (08:21)
[2021-03-29] MEDS: INSULIN DETEMIR (LEVEMIR) 100 UNIT/ML SYR SQ SCH (08:21)
[2021-03-29] MEDS: OXYBUTYNIN CHLORIDE 5 MG TAB PO SCH ×2 (08:21→19:58)
[2021-03-29] MEDS: DULoxetine HCL 60 MG CAPSULE.DR PO SCH (08:21)
[2021-03-29] MEDS: INSULIN ASPART (NovoLOG) 100 UNIT/ML VIAL SQ SCH ×4 (08:21→21:30)
[2021-03-29] MEDS ORDERED: ENOXAPARIN 40 MG/0.4 ML SYRINGE SQ SCH (09:00)
[2021-03-29 11:08] LABS: Basophils # (A) 0.01 X 10*3/uL (0.00-0.10); Basophils % (A) 0.1 %; Eosinophils # (A) 0.01 X 10*3/uL (0.04-0.35); Eosinophils % (A) 0.1 %; HCT 31.4 % (37.2-46.3); HGB 9.7 g/dL (12.0-15.0); Lymphocytes # (A) 0.99 X 10*3/uL (0.90-5.00); Lymphocytes % (A) 8.2 %; MCH 26.9 pg (27.0-32.0); MCHC 30.9 g/dL (32.0-37.0); MCV 87.2 fL (80.0-97.0); Mean Platelet Volume 11.1 fL (9.5-12.2); Monocytes # (A) 1.01 X 10*3/uL (0.20-1.00); Monocytes % (A) 8.4 %; Neutrophils % (A) 82.5 %; Platelet Count 164 X 10*3/uL (140-440); RDW 15.1 % (11.5-14.5); WBC 12.01 X 10*3/uL (4.50-10.00)
[2021-03-29 11:48] LABS: Glucose,Whole Blood 275 mg/dL (75-99)
[2021-03-29 16:36] LABS: Glucose,Whole Blood 220 mg/dL (75-99)
--- NOTE | 2021-03-29 18:34 | P.PN ---
Progress Note - Text Progress Note Date: 03/29/21 - Chief Complaint Fall Hospital course This is a pleasant 70-year-old patient follows with Dr. Mckeon. Chronic stable medical conditions include diabetes on insulin, GERD, hypertension, anxiety, depression, urinary incontinence, gout,. Patient is also had DVT in the right leg, arm, and a blood clot of the lung in the area starting in 2012. Patient's chronic and xarelto. Patient isn't a baseline fairly active. Patient did have a checkup including a stress test in October 2019 that was unremarkable. Patient is getting out of the car and she slipped on ice falling on her left hip. Patient has a left hip fracture now. While in the ER patient developed a squeezing sensation in the lower part of the sternum that lasted for about 10 minutes. No radiation. No aggravating or relieving factor. Pain subsided on its own. No shortness of breath. No dizziness, lightheadedness. Patient's at the bedside. February 23: Patient in overflow in the ER. of the bedside. Some period of the fracture site. No chest pain. Breathing stable. Eating some. February 24: Laying in bed. Some pain at the fracture site. On nasal cannula. Eating okay. No chest pain. Surgery being scheduled for tomorrow. Would hold the morning dose of Lovenox. February 25: Patient underwent left hip hemiarthroplasty today. Some pain at the operative site. No nausea vomiting. No chest pain. In bed. February 26: Pain at the operative site. Did tolerate her diet. No nausea vomiting. Did 3 feet with a walker. Accu-Cheks on the higher side. Resume metformin. Xarelto to be resumed today if okay with orthopedics. Review of systems: Was done for constitutional, cardiovascular, GI, pulmonary. relevant finding as above Active Medications Acetaminophen (Acetaminophen Tab 325 Mg Tab) 650 mg PO Q4HR PRN PRN Reason: Pain Scale 1 to 5 Last Admin: 03/28/21 20:41 Dose: 650 mg Documented by: Hydrocodone Bitart/Acetaminophen (Hydrocodone/Apap 5-325mg 1 Each Tab) 1 each PO Q6HR PRN PRN Reason: Pain Scale 1 to 5 Last Admin: 03/29/21 03:30 Dose: 1 each Documented by: Hydrocodone Bitart/Acetaminophen (Hydrocodone/Apap 10-325mg 1 Each Tab) 1 each PO Q6H PRN PRN Reason: Pain Scale 6 to 10 Last Admin: 03/29/21 16:26 Dose: 1 each Documented by: Allopurinol (Allopurinol 300 Mg Tab) 300 mg PO DAILY [facility] Last Admin: 03/29/21 08:20 Dose: 300 mg Documented by: Alprazolam (Alprazolam 0.5 Mg Tab) 0.5 mg PO BID PRN PRN Reason: Anxiety Last Admin: 03/27/21 09:14 Dose: 0.5 mg Documented by: Amlodipine Besylate (Amlodipine 5 Mg Tab) 5 mg PO HS [facility] Last Admin: 03/28/21 20:41 Dose: 5 mg Documented by: Benzocaine/Menthol (Benzocaine/Menthol Lozeng 1 Each Lozenge) 1 each MUCOUS MEM Q4HR PRN PRN Reason: Cough Last Admin: 03/27/21 13:41 Dose: 1 each Documented by: Diazepam (Diazepam 5 Mg Tab) 2.5 mg PO Q8HR PRN PRN Reason: Mild Spasms Last Admin: 03/27/21 19:54 Dose: 2.5 mg Documented by: Diphenoxylate HCl/Atropine (Diphenox-Atrop 2.5-0.025 Mg 1 Each Tab) 1 each PO BID [facility] Last Admin: 03/29/21 08:20 Dose: Not Given Documented by: Duloxetine HCl (Duloxetine Hcl 30 Mg Capsule.) 30 mg PO DAILY [facility] Last Admin: 03/29/21 08:19 Dose: 30 mg Documented by: Duloxetine HCl (Duloxetine Hcl 60 Mg Capsule.) 60 mg PO DAILY [facility] Last Admin: 03/29/21 08:21 Dose: 60 mg Documented by: Ferrous Sulfate (Ferrous Sulfate 325 Mg Tab) 325 mg PO BID-W/MEALS [facility] Hydromorphone HCl (Hydromorphone 1 Mg/Ml 1 Ml Syringe) 1 mg IVP Q3HR PRN PRN Reason: Moderate Pain Last Admin: 03/28/21 18:01 Dose: 1 mg Documented by: Hydromorphone HCl (Hydromorphone 0.2 Mg/1 Ml Syringe) 0.2 mg IVP Q3HR PRN PRN Reason: Pain Scale 4 to 6 Hydromorphone HCl (Hydromorphone 0.5 Mg/0.5 Ml Syringe) 0.125 mg IVP Q3HR PRN PRN Reason: Pain Scale 1 to 3 Hydromorphone HCl (Hydromorphone 0.5 Mg/0.5 Ml Syringe) 0.5 mg IVP Q3HR PRN PRN Reason: Pain Scale 7 to 10 Last Admin: 03/28/21 14:50 Dose: 0.5 mg Documented by: Sodium Chloride (Saline 0.9%) 1,000 mls @ 10 mls/hr IV .Q24H [facility] Last Admin: 03/29/21 01:13 Dose: Not Given Documented by: Insulin Aspart (Insulin Aspart (Novolog) 100 Unit/Ml Vial) 0 unit SQ ACHS [facility]; Protocol Last Admin: 03/29/21 16:53 Dose: 43 unit Documented by: Insulin Detemir (Insulin Detemir (Levemir) 100 Unit/Ml Syr) 80 unit SQ DAILY [facility] Last Admin: 03/29/21 08:21 Dose: 80 unit Documented by: Lidocaine HCl (Lidocaine 1% (10mg/Ml) For Iv Start) 0.1 ml INTRADERMA PER PROTOCOL PRN PRN Reason: IV Start Losartan Potassium (Losartan 50 Mg Tab) 100 mg PO HS [facility] Last Admin: 03/28/21 20:41 Dose: 100 mg Documented by: Magnesium Hydroxide (Magnesium Hydroxide 2,400 Mg/10 Ml Cup) 2,400 mg PO DAILY PRN PRN Reason: Constipation Metformin HCl (Metformin 500 Mg Tab) 1,000 mg PO AC-BID [facility] Multivitamins (Multivitamins, Thera 1 Each Tab) 1 each PO DAILY@1200 [facility] Last Admin: 03/29/21 08:21 Dose: 1 each Documented by: Naloxone HCl (Naloxone 0.4 Mg/Ml 1 Ml Vial) 0.2 mg IV Q2M PRN PRN Reason: Opioid Reversal Ondansetron HCl (Ondansetron 4 Mg/2 Ml Vial) 4 mg IVP Q8HR PRN PRN Reason: Nausea And Vomiting Oxybutynin Chloride (Oxybutynin Chloride 5 Mg Tab) 5 mg PO BID [facility] Last Admin: 03/29/21 08:21 Dose: 5 mg Documented by: Pantoprazole Sodium (Pantoprazole 40 Mg Tablet) 40 mg PO AC-BRKFST [facility] Last Admin: 03/29/21 08:21 Dose: 40 mg Documented by: Pravastatin Sodium (Pravastatin Sodium 20 Mg Tab) 20 mg PO [facility] Last Admin: 03/28/21 20:41 Dose: 20 mg Documented by: Pyridoxine HCl (Pyridoxine 50 Mg Tab) 100 mg PO DAILY [facility] Last Admin: 03/29/21 08:19 Dose: 100 mg Documented by: Rivaroxaban (Rivaroxaban 10 Mg Tab) 10 mg PO DAILY [facility]; Protocol Senna/Docusate Sodium (Sennosides-Docusate Sodium 1 Each Tab) 2 each PO [facility] Last Admin: 03/28/21 20:41 Dose: 2 each Documented by: Tramadol HCl (Tramadol 50 Mg Tab) 50 mg PO Q6HR PRN PRN Reason: Pain Scale 1 to 5 Last Admin: 03/29/21 11:43 Dose: 50 mg Documented by: Past medical history to include: Diabetes, DVT PE about 3 episodes around 2012 and after GERD, hypertension, anxiety, urinary incontinence, depression, gout Social history: No history of smoking or alcohol. Lives with her . Family history: Diabetes, mother had heart condition Physical examination: VITAL SIGNS: 98.1, 78, 18, 134/72, 95% on 4 L GENERAL:, laying in bed, awake, comfortable EYES: Pupils equal. Conjunctiva normal. HEENT: External appearance of nose and ears normal, oral cavity grossly normal. NECK: JVD not raised; masses not palpable. HEART: First and second heart sounds are normal; no edema. LUNGS: Respiratory rate normal; clear to auscultation. ABDOMEN: Soft, nontender, liver spleen not palpable, no masses palpable. PSYCH: Alert and oriented x3; mood and affect normal. MUSCULAR skeletal: Limited range of motion of left hip. Dressing over the incision INVESTIGATIONS, reviewed in the clinical context: March 29: White count 12.0 hemoglobin 9.7 platelets 164. Accu-Cheks 268, 275, 220 March 28: White count 10.8 hemoglobin 11.8 potassium 3.7 crit 0.77. Accu- Cheks 132, 170, 184 2-D echocardiogram: EF 55-60%. Moderate concentric LVH. White count 13.4 hemoglobin 12.5 platelets 156 sodium 139 potassium 4.6 creatinine 0.69 AST 182 ALT 61 Troponin I less than 0.012 EKG tracing personally reviewed by me-normal sinus rhythm. Rate 82. Chest x-ray film personally reviewed by me-limited exam because of positioning and possibly expiratory film Computed tomography scan brain and spine without contrast: Mild cerebral atrophy. DJD just changes. No fractures reported. Left hip x-ray fracture. Impacted left femoral neck fracture. No dislocation. Assessment and plan: -Left femoral neck fracture secondary to a mechanical fall.: Bedrest. Left hip hemiarthroplasty August 26. -Lower sternal chest pain lasting for 10 minutes. Subsided on its own. No other cardiac characteristics. No EKG changes.:Possibly musculoskeletal from fall. Negative troponins Cardiology.negative stress test in October 2019. 2-D echo does not show any wall motion abnormality. -Morbid obesity BMI 40.4 Weight loss measures and follow with PCP -Diabetes mellitus type 2, chronic on insulin and Glucophage. Uncontrolled with hyperglycemia Resume Glucophage. insulin 80 units subcu daily. Diabetic diet. Follow Accu- Cheks with sliding scale. 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 chronically on xarelto 10 mg a day. DC subcu Lovenox. Resume xarelto if okay with orthopedics. Resume Glucophage. Resume xarelto. Other medications to continue. Ferrous sulfate 325 mg by mouth twice a day. Thank you Dr. Roman
[2021-03-29] MEDS: SENNOSIDES-DOCUSATE SODIUM 1 EACH TAB PO SCH (19:56)
[2021-03-29] MEDS: amLODIPine 5 MG TAB PO SCH (19:56)
[2021-03-29] MEDS: LOSARTAN 50 MG TAB PO SCH (19:56)
[2021-03-29] MEDS: metFORMIN 500 MG TAB PO SCH (19:57)
[2021-03-29] MEDS: PRAVASTATIN SODIUM 20 MG TAB PO SCH (19:58)
[2021-03-29] MEDS: FERROUS SULFATE 325 MG TAB PO SCH (19:58)
[2021-03-29 20:09] LABS: Glucose,Whole Blood 199 mg/dL (75-99)
[2021-03-29] MEDS ORDERED: RIVAROXABAN 10 MG TAB PO SCH (21:00)
[2021-03-30] MEDS: HYDROcodone/APAP 10-325MG 1 EACH TAB PO PRN ×2 (00:15→13:21)
[2021-03-30] MEDS: LACTATED RINGERS 1,000 ML IV SCH (03:51)
[2021-03-30] MEDS: SODIUM CHLORIDE 0.9% 1,000 ML IV SCH (05:41)
[2021-03-30] MEDS: HYDROcodone/APAP 5-325MG 1 EACH TAB PO PRN (06:21)
[2021-03-30] MEDS: INSULIN ASPART (NovoLOG) 100 UNIT/ML VIAL SQ SCH ×2 (06:59→12:13)
[2021-03-30 07:02] LABS: Glucose,Whole Blood 99 mg/dL (75-99)
[2021-03-30] MEDS: allopurinoL 300 MG TAB PO SCH (08:53)
[2021-03-30] MEDS: DULoxetine HCL 60 MG CAPSULE.DR PO SCH (08:53)
[2021-03-30] MEDS: FERROUS SULFATE 325 MG TAB PO SCH (08:54)
[2021-03-30] MEDS: PYRIDOXINE 50 MG TAB PO SCH (08:54)
[2021-03-30] MEDS: metFORMIN 500 MG TAB PO SCH (08:54)
[2021-03-30] MEDS: DULoxetine HCL 30 MG CAPSULE.DR PO SCH (08:54)
[2021-03-30] MEDS: PANTOPRAZOLE 40 MG TABLET PO SCH (08:54)
[2021-03-30] MEDS: DIPHENOX-ATROP 2.5-0.025 MG 1 EACH TAB PO SCH (08:54)
[2021-03-30] MEDS: OXYBUTYNIN CHLORIDE 5 MG TAB PO SCH (08:54)
[2021-03-30] MEDS: MULTIVITAMINS, THERA 1 EACH TAB PO SCH (08:54)
[2021-03-30 09:13] LABS: Basophils # (A) 0.04 X 10*3/uL (0.00-0.10); Basophils % (A) 0.4 %; Eosinophils # (A) 0.48 X 10*3/uL (0.04-0.35); Eosinophils % (A) 4.5 %; HCT 30.9 % (37.2-46.3); HGB 9.6 g/dL (12.0-15.0); Lymphocytes # (A) 1.73 X 10*3/uL (0.90-5.00); MCHC 31.1 g/dL (32.0-37.0); MCV 86.8 fL (80.0-97.0); Mean Platelet Volume 10.8 fL (9.5-12.2); Monocytes # (A) 1.15 X 10*3/uL (0.20-1.00); Monocytes % (A) 10.7 %; Neutrophils # (A) 7.31 X 10*3/uL (1.80-7.70); Neutrophils % (A) 67.8 %; Platelet Count 198 X 10*3/uL (140-440); RBC 3.56 X 10*6/uL (4.10-5.20); RDW 15.2 % (11.5-14.5); WBC 10.78 X 10*3/uL (4.50-10.00)
--- NOTE | 2021-03-30 09:27 | P.DS ---
Providers Date of admission: 03/25/21 17:33 Attending physician: Brian Roman Consults: 03/25/21 16:47 Consult Physician Stat Consulting Provider: Ravinder De La Cruz Consult Reason/Comments: chest pain Do you want consulting provider notified?: Yes 03/25/21 18:23 Consult Physician Routine Consulting Provider: [facility] Consult Reason/Comments: chest pain, resolved Do you want consulting provider notified?: Yes Primary care physician: Javier Lynns - Discharge Diagnosis(es) (1) Hip fracture Patient was admitted to the OR on 03/28/21 to undergo a right hip hemiarthroplasty for hip fracture. She had suffered a fracture from a fall as an outpatient and desired to proceed with elective surgery after given informed consent. She underwent the above procedure which she tolerated well without complication. Postoperative hospital course has remained without complication. On day of discharge he is afebrile, vital signs stable, labs within acceptable ranges, tolerating by mouth meds and diet, voiding without difficulty, positive flatus, denies abdominal pain or calf pain, pain is controlled on oral pain medication and has no new complaints. Wound is benign, neurovascular status is intact, calf is soft and nontender, abdomen soft and nontender. Review of systems is negative for numbness, tingling, fever, chills, chest pain, shortness of breath, nausea, vomiting, dizziness, headaches, slurred speech or other. Current Visit: Yes Status: Acute Priority: Medium Procedures: Left hip hemiarthroplasty Patient Condition at Discharge: Fair Plan - Discharge Summary Discharge Rx Participant: No New Discharge Prescriptions: New HYDROcodone/APAP 5-325MG [[place] 5-325] 1 tab PO Q4HR PRN #42 tab PRN Reason: Pain Docusate [Colace] 100 mg PO BID #60 capsule No Action Omeprazole [PriLOSEC] 40 mg PO DAILY ALPRAZolam [Xanax] 0.5 mg PO BID PRN PRN Reason: Anxiety Furosemide [Lasix] 40 mg PO DAILY metFORMIN HCL [Glucophage] 1,000 mg PO BID allopurinoL [Zyloprim] 300 mg PO DAILY Pravastatin Sodium [Pravachol] 20 mg PO HS Oxybutynin Chloride 5 mg PO BID Diphenox-Atrop 2.5-0.025 mg [Lomotil] 1 tab PO BID Losartan Potassium 100 mg PO HS Pyridoxine HCl (Vitamin B6) [Vitamin B-6] 100 mg PO DAILY DULoxetine HCL [Cymbalta] 60 mg PO DAILY Rivaroxaban [Xarelto] 10 mg PO DAILY amLODIPine [Norvasc] 5 mg PO HS DULoxetine HCL [Cymbalta] 30 mg PO DAILY Multivit-Min/FA/Lycopen/Lutein [Centrum Silver Tablet] 1 tab PO DAILY Cholecalciferol [Vitamin D3 (25 Mcg = 1000 Iu)] 50 mcg PO DAILY Cetirizine HCl 10 mg PO DAILY Potassium Chloride [Potassium Chloride ER] 10 meq PO DAILY Insulin Degludec [Tresiba Flextouch U-200 Pen] 100 units SQ DAILY Discharge Medication List ALPRAZolam [Xanax] 0.5 mg PO BID PRN 08/23/14 [History] Furosemide [Lasix] 40 mg PO DAILY 08/23/14 [History] Omeprazole [PriLOSEC] 40 mg PO DAILY 08/23/14 [History] metFORMIN HCL [Glucophage] 1,000 mg PO BID 08/23/14 [History] allopurinoL [Zyloprim] 300 mg PO DAILY 06/16/15 [History] Diphenox-Atrop 2.5-0.025 mg [Lomotil] 1 tab PO BID 12/31/17 [History] Oxybutynin Chloride 5 mg PO BID 12/31/17 [History] Pravastatin Sodium [Pravachol] 20 mg PO HS 12/31/17 [History] Cetirizine HCl 10 mg PO DAILY 03/25/21 [History] Cholecalciferol [Vitamin D3 (25 Mcg = 1000 Iu)] 50 mcg PO DAILY 03/25/21 [Histo ry] DULoxetine HCL [Cymbalta] 30 mg PO DAILY 03/25/21 [History] DULoxetine HCL [Cymbalta] 60 mg PO DAILY 03/25/21 [History] Insulin Degludec [Tresiba Flextouch U-200 Pen] 100 units SQ DAILY 03/25/21 [ History] Losartan Potassium 100 mg PO HS 03/25/21 [History] Multivit-Min/FA/Lycopen/Lutein [Centrum Silver Tablet] 1 tab PO DAILY 03/25/21 [History] Potassium Chloride [Potassium Chloride ER] 10 meq PO DAILY 03/25/21 [History] Pyridoxine HCl (Vitamin B6) [Vitamin B-6] 100 mg PO DAILY 03/25/21 [History] Rivaroxaban [Xarelto] 10 mg PO DAILY 03/25/21 [History] amLODIPine [Norvasc] 5 mg PO HS 03/25/21 [History] Docusate [Colace] 100 mg PO BID #60 capsule 03/30/21 [Rx] HYDROcodone/APAP 5-325MG [[place] 5-325] 1 tab PO Q4HR PRN #42 tab 03/30/21 [Rx] Follow up Appointment(s)/Referral(s): Cory Houston MD [STAFF PHYSICIAN] - 6 Weeks Willy Crowley MD [Family Provider] - 1-2 days Brian Roman MD [STAFF PHYSICIAN] - 10 Days Activity/Diet/Wound Care/Special Instructions: Weight bear as tolerated with walker at all times May shower after 3 days if no bleeding Keep wound clean and dry Take meds as directed F/U with Dr. Roman in office Discharge Disposition: TRANSFER TO SNF/ECF
[2021-03-30] MEDS: INSULIN DETEMIR (LEVEMIR) 100 UNIT/ML SYR SQ SCH (09:47)
[2021-03-30 12:01] LABS: Glucose,Whole Blood 167 mg/dL (75-99)
[2021-03-30 13:29] VITALS: BMI 40.4
[2021-03-30 15:34] VITALS: BP 161/76; PULSE 94; RESP 17; TEMP 97.9
--- NOTE | 2021-03-30 20:04 | P.PN ---
Progress Note - Text Progress Note Date: 03/30/21 - Chief Complaint Fall Hospital course This is a pleasant 70-year-old patient follows with Dr. Mckeon. Chronic stable medical conditions include diabetes on insulin, GERD, hypertension, anxiety, depression, urinary incontinence, gout,. Patient is also had DVT in the right leg, arm, and a blood clot of the lung in the area starting in 2012. Patient's chronic and xarelto. Patient isn't a baseline fairly active. Patient did have a checkup including a stress test in October 2019 that was unremarkable. Patient is getting out of the car and she slipped on ice falling on her left hip. Patient has a left hip fracture now. While in the ER patient developed a squeezing sensation in the lower part of the sternum that lasted for about 10 minutes. No radiation. No aggravating or relieving factor. Pain subsided on its own. No shortness of breath. No dizziness, lightheadedness. Patient's at the bedside. February 23: Patient in overflow in the ER. of the bedside. Some period of the fracture site. No chest pain. Breathing stable. Eating some. February 24: Laying in bed. Some pain at the fracture site. On nasal cannula. Eating okay. No chest pain. Surgery being scheduled for tomorrow. Would hold the morning dose of Lovenox. February 25: Patient underwent left hip hemiarthroplasty today. Some pain at the operative site. No nausea vomiting. No chest pain. In bed. February 26: Pain at the operative site. Did tolerate her diet. No nausea vomiting. Did 3 feet with a walker. Accu-Cheks on the higher side. Resume metformin. Xarelto to be resumed today if okay with orthopedics. February 27: Stable. Oral intake fair. Pain control. She back on xarelto. Getting discharged to ECF. Discussed with patient. Review of systems: Was done for constitutional, cardiovascular, GI, pulmonary. relevant finding as above Current medications reviewed Past medical history to include: Diabetes, DVT PE about 3 episodes around 2012 and after GERD, hypertension, anxiety, urinary incontinence, depression, gout Social history: No history of smoking or alcohol. Lives with her . Family history: Diabetes, mother had heart condition Physical examination: VITAL SIGNS: 97.9, 94, 17, 1 6176, 97% room air GENERAL:, laying in bed, awake, comfortable EYES: Pupils equal. Conjunctiva normal. HEENT: External appearance of nose and ears normal, oral cavity grossly normal. NECK: JVD not raised; masses not palpable. HEART: First and second heart sounds are normal; no edema. LUNGS: Respiratory rate normal; clear to auscultation. ABDOMEN: Soft, nontender, liver spleen not palpable, no masses palpable. PSYCH: Alert and oriented x3; mood and affect normal. MUSCULAR skeletal: Limited range of motion of left hip. Dressing over the incision INVESTIGATIONS, reviewed in the clinical context: March 30: White count 10.7 hemoglobin 9.6 platelets 198. COVID-19: Not detected 2-D echocardiogram: EF 55-60%. Moderate concentric LVH. White count 13.4 hemoglobin 12.5 platelets 156 sodium 139 potassium 4.6 creatinine 0.69 AST 182 ALT 61 Troponin I less than 0.012 EKG tracing personally reviewed by me-normal sinus rhythm. Rate 82. Chest x-ray film personally reviewed by me-limited exam because of positioning and possibly expiratory film Computed tomography scan brain and spine without contrast: Mild cerebral atrophy. DJD just changes. No fractures reported. Left hip x-ray fracture. Impacted left femoral neck fracture. No dislocation. Assessment and plan: -Left femoral neck fracture secondary to a mechanical fall.: Bedrest. Left hip hemiarthroplasty August 26. -Lower sternal chest pain lasting for 10 minutes. Subsided on its own. No other cardiac characteristics. No EKG changes.:Possibly musculoskeletal from fall. Negative troponins Cardiology.negative stress test in October 2019. 2-D echo does not show any wall motion abnormality. -Morbid obesity BMI 40.4 Weight loss measures and follow with PCP -Diabetes mellitus type 2, chronic on insulin and Glucophage. Uncontrolled with hyperglycemia Glucophage. insulin 80 units subcu daily. Diabetic diet. Follow Accu-Cheks with sliding scale. 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 chronically on xarelto 10 mg a day. Xarelto resumed Stable. Continue current medication treatment plan. Follow with PCP. Thank you Dr. Roman
== END 2021-03-30 15:29 | DRG 522 ==
LOC: EC 14:03 → 3SCARD 17:33 → 4SSUR 03-28 14:03
PROVIDERS: ADMIT Orthopaedic Surgery Sports Medicine; ATTEND Orthopaedic Surgery Sports Medicine
PROC: 0SRS019 Replacement of Left Hip Joint, Femoral Surface with Metal Synthetic Substitute, Cemented, Open Approach (ICD-10-PCS; principal; 2021-03-28 11:00)
DX: S72.012A Unspecified intracapsular fracture of left femur, initial encounter for closed fracture (principal); Z68.41 Body mass index [BMI] 40.0-44.9, adult; I27.82 Chronic pulmonary embolism; D62 Acute posthemorrhagic anemia; I82.5Z1 Chronic embolism and thrombosis of unspecified deep veins of right distal lower extremity; I27.20 Pulmonary hypertension, unspecified; E66.01 Morbid (severe) obesity due to excess calories; E11.65 Type 2 diabetes mellitus with hyperglycemia; Z79.4 Long term (current) use of insulin; Z20.822 Contact with and (suspected) exposure to COVID-19; K21.9 Gastro-esophageal reflux disease without esophagitis; I10 Essential (primary) hypertension; N39.3 Stress incontinence (female) (male); F32.A Depression, unspecified; F41.9 Anxiety disorder, unspecified; E78.5 Hyperlipidemia, unspecified; I08.1 Rheumatic disorders of both mitral and tricuspid valves; M1A.9XX0 Chronic gout, unspecified, without tophus (tophi); Z79.84 Long term (current) use of oral hypoglycemic drugs; Z79.01 Long term (current) use of anticoagulants; Z79.899 Other long term (current) drug therapy; Z90.710 Acquired absence of both cervix and uterus; Z98.51 Tubal ligation status; Z87.42 Personal history of other diseases of the female genital tract; Z87.891 Personal history of nicotine dependence; Z87.81 Personal history of (healed) traumatic fracture; Z98.890 Other specified postprocedural states; Z88.8 Allergy status to other drugs, medicaments and biological substances; Z91.041 Radiographic dye allergy status; Z91.013 Allergy to seafood; W00.0XXA Fall on same level due to ice and snow, initial encounter; Y92.009 Unspecified place in unspecified non-institutional (private) residence as the place of occurrence of the external cause; Z83.3 Family history of diabetes mellitus; Z82.49 Family history of ischemic heart disease and other diseases of the circulatory system; Z83.2 Family history of diseases of the blood and blood-forming organs and certain disorders involving the immune mechanism
CPT/HCPCS: 36415; 70450; 71045; 72125; 73501; 73502; 80048; 80053; 84484; 85025; 85610; 85730; 86850; 86870; 86880; 86900; 86901; 87635; 88305; 88311; 93005; 93306; 94640; 96374; 96376; 99285

== ENCOUNTER → 2022-08-05 | Outpatient (CLI) | payer MEDICARE, OTHER ==
[2022-08-05 15:12] LABS: INR 1.1 (<1.2); Partial Thromboplastin Time 30.3 sec (22.0-30.0); Prothrombin Time 11.7 sec (9.0-12.0)
[2022-08-05 19:49] LABS: HGB 12.7 g/dL (12.0-15.0); MCH 29.5 pg (27.0-32.0); MCHC 32.6 g/dL (32.0-37.0); MCV 90.5 fL (80.0-97.0); Mean Platelet Volume 11.2 fL (9.5-12.2); NRBC Per 100 WBC 0 /100 WBCS (0.0-0.0); Platelet Count 178 X 10*3/uL (140-440); RBC 4.31 X 10*6/uL (4.10-5.20); WBC 8.07 X 10*3/uL (4.50-10.00)
[2022-08-05 20:29] LABS: African American GFR (CKD) 63.5 (60.0-200.0); Albumin 4.3 g/dL (3.8-4.9); Albumin/Globulin Ratio 2.08 (1.60-3.17); Anion Gap 10.8 mmol/L (10.00-18.00); BUN/Creat Ratio 11.35 Ratio (12.00-20.00); Blood Urea Nitrogen 11.8 mg/dL (9.0-27.0); Calcium 9.3 mg/dL (8.7-10.3); Carbon Dioxide 27.1 mmol/L (20.0-27.5); Globulin 2.1 g/dL (1.6-3.3); Non-African American GFR(CKD) 54.8 (60.0-200.0); Potassium 4.2 mmol/L (3.5-5.5); Total Bilirubin 0.2 mg/dL (0.30-1.20); Total Protein 6.4 g/dL (6.2-8.2)
[2022-08-05 21:43] LABS: Appearance,Urine Clear (Clear); Bilirubin,Urine Negative (Negative); Blood,Urine Negative (Negative); Color,Urine Yellow (Yellow); Ketones,Urine Negative (Negative); Nitrite,Urine Negative (Negative); PH, Urine 5.5 (5.0-8.0); Specific Gravity,Urine 1.007 (1.001-1.030); Urobilinogen,Urine 0.2 (0.2,1.0)
== END | disposition home or self-care (01) ==
LOC: LABPAT 13:57
PROVIDERS: ATTEND Orthopaedic Surgery
DX: Z96.642 Presence of left artificial hip joint (principal)
CPT/HCPCS: 80053; 81003; 85027; 85610; 85730; 87070; 93005

== ENCOUNTER 2022-08-13 05:39 | Inpatient (IN) | payer MEDICARE, OTHER ==
[~2022-08-13 05:39] MED LIST: ACETAMINOPHEN TAB 500 MG TAB PO PRN; GABAPENTIN 300 MG CAP PO PRN; MELOXICAM 7.5 MG TAB PO PRN; TRANEXAMIC ACID IN NACL,ISO-OS 1,000 MG in SALINE 1 100ML.BAG IVPB PRN
[2022-08-13] MEDS ORDERED: MIDAZOLAM 2 MG/2 ML VIAL IV PRN (05:48)
[2022-08-13] MEDS ORDERED: LIDOCAINE 1% (10MG/ML) FOR IV START INTRADERMA PRN (05:48)
[2022-08-13] MEDS ORDERED: ONDANSETRON 4 MG/2 ML VIAL IVP ONE (05:48)
[2022-08-13] MEDS ORDERED: DEXAMETHASONE SOD PHOSPHATE 4 MG/ML 1 ML VIAL IV ONE (05:48)
[2022-08-13] MEDS ORDERED: LACTATED RINGERS 1,000 ML IV ONE ×3 (06:00→12:54)
[2022-08-13 06:19] LABS: Glucose,Whole Blood 124 mg/dL (70-110)
[2022-08-13] MEDS ORDERED: MIDAZOLAM 2 MG/2 ML VIAL IVP ONE (06:48)
[2022-08-13] MEDS ORDERED: HYDROmorphone 0.5 MG/0.5 ML SYRINGE IVP PRN ×4 (07:00→09:47)
[2022-08-13] MEDS ORDERED: MIDAZOLAM 2 MG/2 ML VIAL ONE (07:09)
[2022-08-13] MEDS ORDERED: TRANEXAMIC ACID IN NACL,ISO-OS 1,000 MG/100 ML BAG ONE (07:09)
[2022-08-13] MEDS ORDERED: DEXAMETHASONE SOD PHOSPHATE 4 MG/ML 1 ML VIAL ONE (07:09)
[2022-08-13] MEDS ORDERED: HYDROmorphone (PF) 1 MG/ML ONE (07:09)
[2022-08-13] MEDS ORDERED: ROCURONIUM 10 MG/ML (5 ML VIAL) IV ONE (07:09)
[2022-08-13] MEDS ORDERED: PROPOFOL 10 MG/ML 20 ML VIAL IV ONE (07:09)
[2022-08-13] MEDS ORDERED: KETOROLAC 15 MG/ML 1 ML VIAL ONE (07:09)
[2022-08-13] MEDS ORDERED: ROPIVACAINE 5 MG/ML 30 ML VIAL ONE (07:09)
[2022-08-13] MEDS ORDERED: SUCCINYLCHOLINE CHLORIDE 200 MG/10 ML VIAL IV ONE (07:09)
[2022-08-13] MEDS ORDERED: fentaNYL (PF) 50 MCG/ML 2 ML AMP ONE (07:09)
[2022-08-13] MEDS ORDERED: LIDOCAINE 2% INJ 20 MG/ML (2 ML VIAL) ONE (07:09)
[2022-08-13] MEDS ORDERED: ROPIVACAINE 5 MG/ML 30 ML VIAL MISCELLANE ONE ×2 (07:36→09:09)
[2022-08-13] MEDS ORDERED: ceFAZolin 1,000 MG in SODIUM CHLORIDE 0.9% 1,000 ML IRRIGATION ONE (07:37)
--- NOTE | 2022-08-13 09:31 | FL ---
Intraoperative/procedural fluoroscopic services were provided. Total fluoroscopy time is 41 seconds w ith a total of 3 submitted images to PACS. Please see the operative/procedural note for further detai ls. DAP: 3.1017 Gycm2
--- NOTE | 2022-08-13 09:46 | P.OP ---
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 Loose femoral component left hip Procedure(s) Performed: 1. Revision total left hip arthroplasty with a direct anterior approach Implants: Lopez [employer] Nephew R3, 3 hole hemispherical acetabular shell, 52 mm Lopez [employer] Nephew Reflection 6.5 mm cancellus screw, 20 mm 2 Lopez [employer] Nephew R3, XLPE 20 acetabular liner Biomet modular head 36 m, +0 the acetabluar component was press-fit, the femoral component was cemented The articulation is cobalt chrome on polyethylene. [place] Simplex P bone cement 2 Anesthesia: GETA Surgeon: John Harper Food And Beverage Intern #1: Emeli Hilton Estimated Blood Loss (ml): 700 Pathology: none sent Condition: stable Disposition: PACU Indications for Procedure: This is a 71-year-old female that had a fracture of her left hip in March 2021. She had a left hip hemiarthroplasty performed has continued pain since her surgery. Her x-rays demonstrated significant acetabular erosion and after discussing the surgical and nonsurgical treatment options with her at length I recommended a revision of her left hip hemiarthroplasty to a total hip arthroplasty. Informed consent was obtained. Operative Findings: Operative findings are consistent with severe acetabular arthrosis. Was also discovered at the time of surgery the femoral component was grossly loose. Both of which she rated to her significant pain Description of Procedure: The patient was seen and evaluated in the preoperative area and the consent was reviewed. The operative site was marked with a skin marker. The patient verified the procedure and operative site. A CRISTINA block was placed by anesthesia in the preoperative area. The patient was then brought to the operating room and given preoperative antibiotics intravenously. 1 g of Tranexamic acid was also given intravenously. A spinal anesthetic was administered by the anesthesia department. The patient was then placed on the [place] table with the bony prominences well-padded. The hip area was then prepped with a ChloraPrep solution and draped in the usual sterile fashion. A universal timeout was then performed, which confirmed the patient's name, surgical site, ALLERGIES, and procedure being performed on the consent. Next the incision site was located at 1 cm distal and 4 cm lateral to the anterior superior iliac spine. The skin and subcutaneous tissues were sharply incised. Incision was carefully dissected down to the fascia overlying the tensor fascia todd muscle. This fascia was then incised in line with the muscle fibers. Care was taken to stay laterally in order to avoid injuring the lateral femoral cutaneous nerve. Next, using blunt finger dissection, the tensor fascia todd muscle was dissected off its investing fascia. The muscle was then carefully retracted laterally with a cobra retractor over the lateral neck of the femur. Next, the circumflex vessels were identified and cauterized using the Aquamantis device. The anterior hip capsule was then exposed. The capsule was then opened and an inverted T fashion. The retractors were then placed intracapsularly. The retractors were maintained intracapsular throughout the procedure. The proximal femur was then visualized. Fluoroscopic x-rays were then taken in order to evaluate the preoperative leg lengths. A small amount of traction was placed on the leg. Scar tissue was then excised around the femoral head and the hip was gently dislocated. The endoprosthetic head was then removed without difficulty from the femoral component. At this time the femoral stem was then inspected and found be grossly loose. Using a osteotome and a mallet the femoral component was easily removed. On inspection of the femoral component, there appeared to be no ingrowth of any bone on the stem. At this time the femoral canal was debrided and the decision to cement in the stem was reached. Attention was then directed to the acetabulum. The acetabulum was exposed and any remaining labrum was excised. Sequential reaming of the acetabulum was performed using fluoroscopic guidance until there was a good bed of bleeding cancellus bone. When the appropriate size was reached, a trial was then placed. The position and fit of the trial was checked with fluoroscopy. The trial was then removed. Then, using fluoroscopic guidance, the final implant was impacted at 20 of anteversion and 40 of abduction, and fully seated in the acetabulum. 2 screws were then placed in the acetabulum. Again fluoroscopy was used to check position of the screws. Next, the liner was then impacted, with a 20 elevated liner located in the anterior superior quadrant. Component locking was confirmed. Attention was then directed to the femur. With the aid of the [place] table, the femur was externally rotated to approximately 130, extended, and adducted under the opposite leg. A side hook was then placed under the proximal femur, and the side hook elevator was used to elevate the proximal femur while releasing the capsule. Retractors were then placed. A capsular release was performed, as well as a release of the conjoined tendon, which afforded excellent visualization of the proximal femur. Femoral canal was then irrigated with pul satile lavage and the prior femoral component was cleansed as well. Cement was mixed and the cement was press-fit into the femoral canal. The femoral stem was then placed into the cement mantle with excess cement being removed. After the cemented hardened, a trial was then placed with appropriate head and neck, and the hip was gently reduced with the aid of the [place] table. Fluoroscopy was then used to check position of the components, as well as to evaluate the leg lengths and offset. The leg lengths and offset were measured as closely as possible to ensure stability of the hip. The hip was then gently dislocated and the trials were then removed. Final implants were then impacted and the hip was again reduced. Final fluoroscopic x-rays confirmed that the components were in anatomic position. The leg lengths and offset were measured and were found to coincide with the trial measurements. The hip was also taken through range of motion, and found to be stable. The hip was then copiously irrigated with antibiotic solution with pulsatile lavage. The hip was then irrigated with Irrisept solution. The soft tissues were then injected with a ropivacaine solution. A second dose of 1 g of Tranexamic acid was also given intravenously. The fascia was then closed with 2-0 strata fix suture. The subcutaneous tissue was closed with 3-0 Vicryl. The subcuticular tissue was closed with 3-0 strata fix suture. The skin was then closed with Exofin skin glue. After the glue and dried, and Optifoam silver impregnated dressing was applied. The patient was then transferred to the recovery room in stable condition. The teachers' assistant CHELSY Ely was required due to the complexity of surgery, and the need for skilled surgical sales representative for positioning, draping, exposure, retraction, and closure of the wound.
[2022-08-13] MEDS ORDERED: ONDANSETRON 4 MG/2 ML VIAL IVP PRN (09:47)
[2022-08-13] MEDS ORDERED: MAGNESIUM HYDROXIDE 2,400 MG/10 ML CUP PO PRN (09:47)
[2022-08-13] MEDS ORDERED: NALOXONE 0.4 MG/ML 1 ML VIAL IV PRN (09:47)
[2022-08-13] MEDS ORDERED: HYDROcodone/APAP 7.5-325MG 1 EACH TAB PO PRN (09:49)
--- NOTE | 2022-08-13 10:26 | XR ---
EXAMINATION TYPE: XR Hip Limited LT DATE OF EXAM: 08/13/2022 CLINICAL HISTORY: Postoperative evaluation TECHNIQUE: Single portable view of the left hip was submitted. FINDINGS: Noted are changes of total hip arthroplasty with femoral and acetabular components appearin g well seated. Alignment is anatomic. Postsurgical soft tissue changes are evident. IMPRESSION: Satisfactory postoperative alignment
[2022-08-13] MEDS: LACTATED RINGERS 1,000 ML IV SCH (12:41)
[2022-08-13] MEDS: SODIUM CHLORIDE 0.9% 1,000 ML IV SCH (13:15)
--- NOTE | 2022-08-13 13:23 | P.ANPRN ---
Procedure Note - Anesthesia - Nerve Block Performed Left He Single Time Out Performed: Yes Date of Procedure: 08/13/22 Procedure Start Time: 06:47 Procedure Stop Time: 06:53 Location of Patient: PreOp Indication: Acute Post-Operative Pain, Requested by Surgeon Sedation Type: Sedate with meaningful contact maintained Preparation: Sterile Prep Position: Supine Needle Types: Pajunk Needle Gauge: 21 Ultrasound used to visualize needle placement: Yes Ultrasound used to observe medication spread: Yes Blood Aspirated: No Pain Paresthesia on Injection Noted: No Resistance on Injection: Normal Image Stored and Saved: Yes Events: Uneventful and Well Tolerated (Ropivacaine 0.5% 20 mL plus dexamethasone 4 mg)
[2022-08-13] MEDS ORDERED: DEXTROSE 50% SYRINGE 50 ML IVP PRN ×2 (13:57)
--- NOTE | 2022-08-13 14:24 | P.HPIM ---
History of Present Illness 71-year-old female admitted for left total hip arthroplasty. Patient pain well controlled at this time. Patient does have history of hypertension blood pressure is marginal at this time. REVIEW OF SYSTEMS: CONSTITUTIONAL: No fever, no malaise, no fatigue. HEENT: No recent visual problems or hearing problems. Denied any sore throat. CARDIOVASCULAR: No chest pain, orthopnea, PND, no palpitations, no syncope. PULMONARY: No shortness of breath, no cough, no hemoptysis. GASTROINTESTINAL: No diarrhea, no nausea, no vomiting, no abdominal pain. NEUROLOGICAL: No headaches, no weakness, no numbness. HEMATOLOGICAL: Denies any bleeding or petechiae. GENITOURINARY: Denies any burning micturition, frequency, or urgency. MUSCULOSKELETAL/RHEUMATOLOGICAL: Denies any joint pain, swelling, or any muscle pain. ENDOCRINE: Denies any polyuria or polydipsia. The rest of the 14-point review of systems is negative. PHYSICAL EXAMINATION: GENERAL: The patient is alert and oriented x3, not in any acute distress. Well developed, well nourished. HEENT: Pupils are round and equally reacting to light. EOMI. No scleral icterus. No conjunctival pallor. Normocephalic, atraumatic. No pharyngeal erythema. No thyromegaly. CARDIOVASCULAR: S1 and S2 present. No murmurs, rubs, or gallops. PULMONARY: Chest is clear to auscultation, no wheezing or crackles. ABDOMEN: Soft, nontender, nondistended, normoactive bowel sounds. No palpable organomegaly. MUSCULOSKELETAL: Deferred to orthopedic surgery EXTREMITIES: No cyanosis, cl ubbing, or pedal edema. NEUROLOGICAL: Gross neurological examination did not reveal any focal deficits. SKIN: No rashes. Assessment and plan -Type 2 diabetes mellitus blood sugars will be monitored patient will be started on sliding scale lung with other home regimen except long-acting insulin until the dose is verified. -Hypertension: Because of expected perioperative hypotension I'll hold off on losartan and diuretics at this time and monitor the blood pressures -History of DVT patient is on anticoagulation at this time at a low dose for DVT prophylaxis next and gastric reflux disease -Hyperlipidemia -Hypertension -Sleep apnea -Obesity -Left up arthroplasty: Postoperative management as per primary service DVT prophylaxis: On anti-correlation as mentioned above Past Medical History Past Medical History: Cancer, Diabetes Mellitus, Deep Vein Thrombosis (DVT), GERD/Reflux, Hyperlipidemia, Hypertension, Osteoarthritis (OA), Pulmonary Embolus (PE), Skin Disorder, Sleep Apnea/CPAP/BIPAP Additional Past Medical History / Comment(s): uses CPAP, hx. melanoma, DVT,PE 2011 after traveling, skin irritation under abd. skin fold, urinary incontinence, neuropathy History of Any Multi-Drug Resistant Organisms: None Reported Past Surgical History: Bariatric Surgery, Hysterectomy, Joint Replacement, Orthopedic Surgery, Tubal Ligation Additional Past Surgical History / Comment(s): HAD GASTRIC STAPLING WITH REVERSAL. SURG. TO DETACH LUNG FROM DIAPHRAGM. ORIF RIGHT WRIST FRACTURE. LEFT ARM HEMATOMA WITH SECONDARY SURGERY. ORIF right femur, left hip hemiarthroplasty 2021 after fx., Total left hip 08/13/22 Past Anesthesia/Blood Transfusion Reactions: Previous Problems w/ Anesthesia Additional Past Anesthesia/Blood Transfusion Reaction / Comment(s): difficulty arousing after surg. Smoking Status: Former smoker - Past Family History Mother Family Medical History: Diabetes Mellitus Additional Family Medical History / Comment(s): PATIENT STATES MOTHER HAD "HEART CONDITION" Father Additional Family Medical History / Comment(s): PATIENT STATES FATHER HAD "HEART CONDITION" Son(s) Family Medical History: Deep Vein Thrombosis (DVT), Pulmonary Embolus Medications and Allergies Home Medications Medication Instructions Recorded Confirmed Type Omeprazole [PriLOSEC] 40 mg PO DAILY 08/23/14 08/13/22 History allopurinoL [Zyloprim] 300 mg PO DAILY 06/16/15 08/13/22 History Diphenox-Atrop 2.5-0.025 mg 1 tab PO BID 12/31/17 08/13/22 History [Lomotil] Oxybutynin Chloride 5 mg PO BID 12/31/17 08/13/22 History Pravastatin Sodium [Pravachol] 40 mg PO HS 12/31/17 08/13/22 History Cholecalciferol [Vitamin D3 (25 50 mcg PO DAILY 03/25/21 08/13/22 History Mcg = 1000 Iu)] DULoxetine HCL [Cymbalta] 60 mg PO DAILY 03/25/21 08/13/22 History Multivit-Min/FA/Lycopen/Lutein 1 tab PO DAILY 03/25/21 08/13/22 History [Centrum Silver Tablet] Pyridoxine HCl (Vitamin B6) 100 mg PO DAILY 03/25/21 08/13/22 History [Vitamin B-6] ALPRAZolam [Xanax] 0.5 mg PO BID PRN #6 tab 03/30/21 08/13/22 Rx Ferrous Sulfate [Iron (65 MG 325 mg PO BID-W/MEALS tab 03/30/21 08/13/22 Rx Elemental)] Acetaminophen [Tylenol Arthritis] 650 mg PO Q8H PRN 08/09/22 08/13/22 History Ascorbic Acid [Vitamin C] 500 mg PO DAILY 08/09/22 08/13/22 History Cyanocobalamin [Vitamin B-12] 500 mcg PO DAILY 08/09/22 08/13/22 History Dulaglutide [Trulicity] 4.5 mg SQ SA 08/09/22 08/13/22 History Gabapentin [Neurontin] 100 mg PO HS 08/09/22 08/13/22 History Gabapentin [Neurontin] 200 mg PO QAM 08/09/22 08/13/22 History Insulin Degludec [Tresiba 100 units SQ AC-BRKFST 08/09/22 08/13/22 History Flextouch U-200 Pen] Magnesium Oxide [Mag-Ox] 400 mg PO DAILY 08/09/22 08/13/22 History Rivaroxaban [Xarelto] 10 mg PO DAILY 08/09/22 08/13/22 History Triamterene/Hydrochlorothiazid 1 each PO DAILY 08/09/22 08/13/22 History [Triamterene-Hctz 37.5-25 mg Tb] Valsartan [Diovan] 320 mg PO DAILY 08/09/22 08/13/22 History Zinc Gluconate [Zinc] 50 mg PO DAILY 08/09/22 08/13/22 History HYDROcodone/APAP 7.5-325MG [[place] 1 - 2 tab PO Q6H PRN #32 tab 08/13/22 Rx 7.5-325] Sennosides [Senokot] 2 tab PO DAILY PRN #60 tablet 08/13/22 Rx Allergies Allergy/AdvReac Type Severity Reaction Status Date / Time Iodinated Contrast Media Allergy Swelling Verified 08/13/22 05:56 shellfish derived Allergy Abdominal Verified 08/13/22 05:56 Pain warfarin sodium Allergy facial Verified 05/30/23 05:56 [From Coumadin] swelling Physical Exam Vitals: Vital Signs Temp Pulse Resp BP Pulse Ox 08/13/22 13:11 97.7 F 99 16 119/70 99 08/13/22 12:30 97 16 105/58 94 L 08/13/22 12:00 97 16 101/61 94 L 08/13/22 11:41 96 16 104/57 96 08/13/22 11:26 96 16 99/58 96 08/13/22 11:11 96 16 101/58 93 L 08/13/22 10:56 93 16 97/58 92 L 08/13/22 10:41 96 16 112/61 92 L 08/13/22 10:26 95 16 114/51 92 L 08/13/22 10:11 98 16 110/53 94 L 08/13/22 09:56 93 16 110/54 94 L 08/13/22 09:41 97.4 F L 93 16 95/50 92 L 08/13/22 06:53 73 16 157/64 96 08/13/22 05:55 97.3 F L 68 16 150/65 93 L Intake and Output 08/12/22 08/13/22 08/13/22 22:59 06:59 14:59 Intake Total 500 1551 Output Total 100 Balance 500 1451 Intake: IV 500 1551 Output: Estimated Blood Loss 100 Other: Weight 109.3 kg 109.3 kg Results Labs: Abnormal Lab Results - Last 24 Hours (Table) 08/13/22 Range/Units 06:18 POC Glucose (mg/dL) 124 H (70-110) mg/dL Thrombosis Risk Factor Assmnt - Choose All That Apply Any of the Below Risk Factors Present?: Yes Each Factor Represents 1 point: Obesity (BMI >25) Each Risk Factor Represents 2 Points: Age 61-74 years Each Risk Factor Represents 3 Points: History of DVT/PE Each Risk Factor Represents 5 Points: Elective major lower extremity arthoplasty Thrombosis Risk Factor Assessment Total Risk Factor Score: 11 Thrombosis Risk Factor Assessment Level: High Risk
[2022-08-13] MEDS: HYDROcodone/APAP 7.5-325MG 1 EACH TAB PO PRN (16:09)
[2022-08-13 16:38] LABS: Glucose,Whole Blood 376 mg/dL (70-110)
[2022-08-13] MEDS: INSULIN ASPART (NovoLOG) 100 UNIT/ML VIAL SQ SCH ×2 (16:51→21:23)
[2022-08-13] MEDS ORDERED: SENNOSIDES-DOCUSATE SODIUM 1 EACH TAB PO SCH (21:00)
[2022-08-13] MEDS ORDERED: GABAPENTIN 100 MG CAP PO SCH (21:00)
[2022-08-13] MEDS ORDERED: PRAVASTATIN SODIUM 40 MG TAB PO SCH (21:00)
[2022-08-13 21:08] LABS: Glucose,Whole Blood 291 mg/dL (70-110)
[2022-08-13] MEDS: oxyBUTYnin chloride 5 MG TAB PO SCH (21:23)
[2022-08-14] MEDS: HYDROcodone/APAP 7.5-325MG 1 EACH TAB PO PRN ×2 (00:54→06:51)
[2022-08-14] MEDS: SODIUM CHLORIDE 0.9% 1,000 ML IV SCH (02:06)
[2022-08-14 05:38] LABS: Glucose,Whole Blood 226 mg/dL (70-110)
[2022-08-14] MEDS: LACTATED RINGERS 1,000 ML IV SCH (06:11)
[2022-08-14] MEDS: INSULIN ASPART (NovoLOG) 100 UNIT/ML VIAL SQ SCH ×2 (06:45→12:30)
[2022-08-14 07:29] VITALS: BP 130/72; PULSE 77; RESP 16; TEMP 98.6
[2022-08-14] MEDS ORDERED: PANTOPRAZOLE 40 MG TABLET PO SCH (07:30)
[2022-08-14] MEDS: oxyBUTYnin chloride 5 MG TAB PO SCH (07:38)
--- NOTE | 2022-08-14 07:45 | P.DS ---
Providers Date of admission: 08/13/22 05:39 Expected date of discharge: 08/14/22 Attending physician: John Harper Consults: 08/13/22 09:47 Consult Physician Routine Consulting Provider: Ulises Eden Consult Reason/Comments: medical management Do you want consulting provider notified?: Yes Primary care physician: Javier Mckeon - Discharge Diagnosis(es) (1) Status post revision of total hip replacement Current Visit: Yes Status: Acute (2) Hip fracture Current Visit: No Status: Acute Priority: Medium Hospital Course: This is a 71-year-old female with known history of left hip fracture over a year ago and had a hemiarthroplasty. The implant stem was not stable. The patient presents for evaluation. After discussion and consideration patient elects to proceed with conversion of hemiarthroplasty to total hip arthroplasty with direct anterior approach. The patient is seen preoperatively by primary care physician and cleared for surgery. Patient is admitted to [facility] on 08/13/2022 for conversion of hemiarthroplasty to total hip arthroplasty with direct anterior approach. The procedure is performed without complication or sequelae. The patient is doing well postoperatively. Labs and vital signs are stable on day of discharge. On day of discharge patient's hip incision is healing well. There is minimal erythema. There is no drainage noted at this time. There is minimal soft tissue swelling to the hip and thigh. Patient has full foot and ankle motion without difficulty or pain. Neurovascular status to the lower extremity is intact. Patient is discharged to home in good condition. Please see med rec for accurate list of home medications. Patient Condition at Discharge: Good Plan - Discharge Summary Discharge Rx Participant: Yes New Discharge Prescriptions: New HYDROcodone/APAP 7.5-325MG [[place] 7.5-325] 1 - 2 tab PO Q6H PRN #32 tab PRN Reason: Pain Sennosides [Senokot] 2 tab PO DAILY PRN #60 tablet PRN Reason: Constipation No Action Omeprazole [PriLOSEC] 40 mg PO DAILY allopurinoL [Zyloprim] 300 mg PO DAILY Pravastatin Sodium [Pravachol] 40 mg PO HS Oxybutynin Chloride 5 mg PO BID Diphenox-Atrop 2.5-0.025 mg [Lomotil] 1 tab PO BID Pyridoxine HCl (Vitamin B6) [Vitamin B-6] 100 mg PO DAILY DULoxetine HCL [Cymbalta] 60 mg PO DAILY Ferrous Sulfate [Iron (65 MG Elemental)] 325 mg PO BID-W/MEALS tab ALPRAZolam [Xanax] 0.5 mg PO BID PRN #6 tab PRN Reason: Anxiety Insulin Degludec [Tresiba Flextouch U-200 Pen] 100 units SQ AC-BRKFST Zinc Gluconate [Zinc] 50 mg PO DAILY Valsartan [Diovan] 320 mg PO DAILY Multivit-Min/FA/Lycopen/Lutein [Centrum Silver Tablet] 1 tab PO DAILY Cholecalciferol [Vitamin D3 (25 Mcg = 1000 Iu)] 50 mcg PO DAILY Rivaroxaban [Xarelto] 10 mg PO DAILY Cyanocobalamin [Vitamin B-12] 500 mcg PO DAILY Magnesium Oxide [Mag-Ox] 400 mg PO DAILY Gabapentin [Neurontin] 100 mg PO HS Ascorbic Acid [Vitamin C] 500 mg PO DAILY Gabapentin [Neurontin] 200 mg PO QAM Triamterene/Hydrochlorothiazid [Triamterene-Hctz 37.5-25 mg Tb] 1 each PO DAILY Dulaglutide [Trulicity] 4.5 mg SQ SA Acetaminophen [Tylenol Arthritis] 650 mg PO Q8H PRN PRN Reason: Pain Discharge Medication List Omeprazole [PriLOSEC] 40 mg PO DAILY 08/23/14 [History] allopurinoL [Zyloprim] 300 mg PO DAILY 06/16/15 [History] Diphenox-Atrop 2.5-0.025 mg [Lomotil] 1 tab PO BID 12/31/17 [History] Oxybutynin Chloride 5 mg PO BID 12/31/17 [History] Pravastatin Sodium [Pravachol] 40 mg PO HS 12/31/17 [History] Cholecalciferol [Vitamin D3 (25 Mcg = 1000 Iu)] 50 mcg PO DAILY 03/25/21 [History] DULoxetine HCL [Cymbalta] 60 mg PO DAILY 03/25/21 [History] Multivit-Min/FA/Lycopen/Lutein [Centrum Silver Tablet] 1 tab PO DAILY 03/25/21 [History] Pyridoxine HCl (Vitamin B6) [Vitamin B-6] 100 mg PO DAILY 03/25/21 [History] ALPRAZolam [Xanax] 0.5 mg PO BID PRN #6 tab 03/30/21 [Rx] Ferrous Sulfate [Iron (65 MG Elemental)] 325 mg PO BID-W/MEALS tab 03/30/21 [Rx] Acetaminophen [Tylenol Arthritis] 650 mg PO Q8H PRN 08/09/22 [History] Ascorbic Acid [Vitamin C] 500 mg PO DAILY 08/09/22 [History] Cyanocobalamin [Vitamin B-12] 500 mcg PO DAILY 08/09/22 [History] Dulaglutide [Trulicity] 4.5 mg SQ SA 08/09/22 [History] Gabapentin [Neurontin] 100 mg PO HS 08/09/22 [History] Gabapentin [Neurontin] 200 mg PO QAM 08/09/22 [History] Insulin Degludec [Tresiba Flextouch U-200 Pen] 100 units SQ AC-BRKFST 08/09/22 [History] Magnesium Oxide [Mag-Ox] 400 mg PO DAILY 08/09/22 [History] Rivaroxaban [Xarelto] 10 mg PO DAILY 08/09/22 [History] Triamterene/Hydrochlorothiazid [Triamterene-Hctz 37.5-25 mg Tb] 1 each PO DAILY 08/09/22 [History] Valsartan [Diovan] 320 mg PO DAILY 08/09/22 [History] Zinc Gluconate [Zinc] 50 mg PO DAILY 08/09/22 [History] HYDROcodone/APAP 7.5-325MG [[place] 7.5-325] 1 - 2 tab PO Q6H PRN #32 tab 08/13/22 [Rx] Sennosides [Senokot] 2 tab PO DAILY PRN #60 tablet 08/13/22 [Rx] Follow up Appointment(s)/Referral(s): John Harper DO [Doctor of Osteopathic Medicine] - 2 Weeks Activity/Diet/Wound Care/Special Instructions: Weightbearing as tolerated with walker. Leave dressing intact. Dressing may be removed by home care nurse or by patient in 7 days. Then change dressing twice daily until follow up. May shower with initial dressing intact and after removal. If dressing become saturated, please remove. Please resume Xarelto. Recommend use of compression stockings daily until follow up to help prevent swelling and blood clots. May remove at night before sleeping. Please follow-up with [facility] in 2 weeks and call with any questions or concerns, . Discharge Disposition: HOME WITH HOME HEALTH SERVICES
[2022-08-14] MEDS ORDERED: DULoxetine HCL 60 MG CAPSULE.DR PO SCH (09:00)
[2022-08-14] MEDS ORDERED: allopurinoL 300 MG TAB PO SCH (09:00)
[2022-08-14] MEDS ORDERED: RIVAROXABAN 10 MG TAB PO SCH ×2 (09:00)
[2022-08-14] MEDS ORDERED: MAGNESIUM OXIDE 400 MG TAB PO SCH (09:00)
[2022-08-14] MEDS ORDERED: GABAPENTIN 100 MG CAP PO SCH (09:00)
[2022-08-14 11:32] LABS: Glucose,Whole Blood 218 mg/dL (70-110)
[2022-08-14 14:01] LABS: Basophils # (A) 0.01 X 10*3/uL (0.00-0.10); Basophils % (A) 0.1 %; Eosinophils # (A) 0 X 10*3/uL (0.04-0.35); Eosinophils % (A) 0 %; HCT 28.2 % (37.2-46.3); HGB 9.2 g/dL (12.0-15.0); Immature Grans, Automated 0.5 %; Lymphocytes # (A) 1.46 X 10*3/uL (0.90-5.00); Lymphocytes % (A) 13.5 %; MCH 29.1 pg (27.0-32.0); MCHC 32.6 g/dL (32.0-37.0); MCV 89.2 fL (80.0-97.0); Mean Platelet Volume 11.9 fL (9.5-12.2); Monocytes # (A) 0.78 X 10*3/uL (0.20-1.00); Monocytes % (A) 7.2 %; NRBC Per 100 WBC 0 /100 WBCS (0.0-0.0); Neutrophils % (A) 78.7 %; Platelet Count 133 X 10*3/uL (140-440); RBC 3.16 X 10*6/uL (4.10-5.20); RDW 13.8 % (11.5-14.5)
--- NOTE | 2022-08-15 10:36 | P.PN ---
Subjective Progress Note Date: 08/14/22 71-year-old female admitted for left total hip arthroplasty. Patient pain well controlled at this time. Patient does have history of hypertension blood pressure is marginal at this time. 08/14/2022 Patient is seen and evaluated in follow-up status post left total hip arthroplasty and doing relatively well. Patient reports she was able to work with physical therapy and has support at home and plans on discharging today. Patient is a diabetic and blood sugars being monitored with Accu-Cheks before meals and at bedtime. Home medications have been on hold and discussed with the patient about resuming after monitoring at home. Patient is currently afebrile denies chest pain or shortness of breath with no reports of nausea or vomiting and tolerating diet. Patient reports passing gas and urinating with no difficulties. Patient is medically stable for discharge today Review of systems: Constitutional: No reports of fatigue, fever, or chills Cardiovascular: No reports of chest pain or palpitations Respiratory: No reports of shortness of breath or cough GI: No reports of nausea, vomiting, or diarrhea : No reports of dysuria or retention Neurovascular: No reports of weakness or numbness, reports some left hip minimal tenderness on palpation All medications have been reviewed PHYSICAL EXAMINATION: GENERAL: The patient is alert and oriented x3, not in any acute distress. Well developed, well nourished. HEENT: Pupils are round and equally reacting to light. EOMI. No scleral icterus. No conjunctival pallor. Normocephalic, atraumatic. No pharyngeal erythema. No thyromegaly. CARDIOVASCULAR: S1 and S2 present. No murmurs, rubs, or gallops. PULMONARY: Chest is clear to auscultation, no wheezing or crackles. ABDOMEN: Soft, nontender, nondistended, normoactive bowel sounds. No palpable organomegaly. MUSCULOSKELETAL: Left hip surgical site is dry and intact and palpable with no surrounding redness and minimal swelling noted. EXTREMITIES: No cyanosis, clubbing, or pedal edema. NEUROLOGICAL: Gross neurological examination did not reveal any focal deficits. SKIN: No rashes. Assessment and plan -Type 2 diabetes mellitus blood sugars will be monitored while inpatient and resume all medications on discharge -Hypertension: Encouraged patient to monitor blood pressure and may resume home medications with close monitoring and outpatient follow-up -History of DVT patient is maintained on oral anticoagulation and will continue -gastric reflux disease -Hyperlipidemia -Hypertension -Sleep apnea -Obesity -Left hip arthroplasty: Postoperative management as per primary service -DVT prophylaxis: On anticoagulation as mentioned above Plan: Patient is medically stable for discharge today and instructed to monitor blood pressure and resume home medications as appropriate. Patient to follow-up with orthopedics outpatient as scheduled along with primary care provider in the next few weeks Encourage the patient and take incentive spirometer home and continue using at least 10 times every hour while awake Monitor blood sugars with Accu-Cheks before meals and at bedtime and use sliding scale Patient is medically stable for discharge today Thank you for this consultation and we will continue to follow during hospitalization The impression and plan of care has been dictated by Delia Butcher, Nurse Practitioner as directed. Dr. Hay MD I have performed a history and examination and MDM of this patient, discussed the same with the dictator, and agree with the dictator's assessment and plan as written ,documented as a scribe. Based on total visit time, I have performed more than 50% of the visit. Objective - Vital Signs Vital signs: Vital Signs Temp 98.6 F 08/14/22 07:10 Pulse 77 08/14/22 07:10 Resp 16 08/14/22 07:10 BP 130/72 08/14/22 07:10 Pulse Ox 93 L 08/14/22 07:10 FiO2 Intake & Output 08/13/22 08/14/22 08/14/22 18:59 06:59 18:59 Intake Total 1551 Output Total 100 Balance 1451 Weight 109.3 kg Intake: IV 1551 Output: Estimated Blood Loss 100 Other: # Voids 1 2 1 - Labs CBC & Chem 7: 08/14/22 05:27 Labs: Abnormal Lab Results - Last 24 Hours (Table) 08/13/22 08/13/22 08/14/22 Range/Units 16:36 21:06 05:36 POC Glucose (mg/dL) 376 H 291 H 226 H (70-110) mg/dL 08/14/22 Range/Units 11:31 POC Glucose (mg/dL) 218 H (70-110) mg/dL
[2022-08-17] MEDS ORDERED: Dulaglutide [Trulicity] 4.5 MG/0.5 ML Each SQ SCH (09:00)
== END 2022-08-14 13:38 | disposition home health service (06) | DRG 470 ==
LOC: 2ORMAIN 05:39 → 4SSUR 12:43
PROVIDERS: ADMIT Orthopaedic Surgery; ATTEND Orthopaedic Surgery
PROC: 0SRB029 Replacement of Left Hip Joint with Metal on Polyethylene Synthetic Substitute, Cemented, Open Approach (ICD-10-PCS; principal; 2022-08-13 07:00)
PROC: 0SP904Z Removal of Internal Fixation Device from Right Hip Joint, Open Approach (ICD-10-PCS; principal; 2022-08-13 07:00)
DX: T84.031A Mechanical loosening of internal left hip prosthetic joint, initial encounter (principal); Z68.41 Body mass index [BMI] 40.0-44.9, adult; I95.9 Hypotension, unspecified; G47.30 Sleep apnea, unspecified; E11.40 Type 2 diabetes mellitus with diabetic neuropathy, unspecified; E66.9 Obesity, unspecified; Z79.4 Long term (current) use of insulin; I10 Essential (primary) hypertension; K21.9 Gastro-esophageal reflux disease without esophagitis; E78.5 Hyperlipidemia, unspecified; M16.12 Unilateral primary osteoarthritis, left hip; L98.9 Disorder of the skin and subcutaneous tissue, unspecified; R32 Unspecified urinary incontinence; Z79.01 Long term (current) use of anticoagulants; Z79.899 Other long term (current) drug therapy; Z86.718 Personal history of other venous thrombosis and embolism; Z86.711 Personal history of pulmonary embolism; Z85.820 Personal history of malignant melanoma of skin; Z87.891 Personal history of nicotine dependence; Z91.013 Allergy to seafood; Z91.041 Radiographic dye allergy status; Z88.8 Allergy status to other drugs, medicaments and biological substances; Z79.85 Long-term (current) use of injectable non-insulin antidiabetic drugs
CPT/HCPCS: 64447; 73501; 73502; 83036; 85025; 86850; 86870; 86880; 86900; 86901

== ENCOUNTER 2023-10-09 05:33 | Day surgery (SDC) | payer MEDICARE, OTHER ==
[2023-10-09] MEDS ORDERED: ALPRAZolam 0.25 MG TAB PO PRN (05:44)
[2023-10-09] MEDS ORDERED: NITROGLYCERIN SL TABS 0.4 MG TAB SUBLINGUAL PRN ×2 (05:44→08:52)
[2023-10-09] MEDS ORDERED: ALPRAZolam 0.5 MG TAB PO PRN (05:44)
[2023-10-09] MEDS: SODIUM CHLORIDE 0.9% 1,000 ML in EMPTY BAG 1 BAG IV SCH ×2 (06:11→09:51)
[2023-10-09] MEDS: IV FLUID CONTINUATION 1,000 ML IV ONE (06:11)
[2023-10-09] MEDS: ASPIRIN 325 MG TAB PO STA (06:11)
[2023-10-09 06:30] LABS: Glucose,Whole Blood 232 mg/dL (70-110)
[2023-10-09] MEDS: INSULIN ASPART (NovoLOG) 100 UNIT/ML VIAL SQ ONE (06:33)
[2023-10-09] MEDS ORDERED: LIDOCAINE 1% INJ 10MG/ML (20 ML MDV) ONE (07:19)
[2023-10-09] MEDS ORDERED: VERAPAMIL 2.5 MG/ML 2 ML AMP ONE (07:19)
[2023-10-09] MEDS ORDERED: HEPARIN SODIUM 1,000 UN/ML (10ML VL) ONE (07:31)
[2023-10-09] MEDS ORDERED: fentaNYL (PF) 50 MCG/ML 2 ML AMP ONE (07:31)
[2023-10-09] MEDS: fentaNYL (PF) 50 MCG/ML 2 ML AMP IVP ONE (07:35)
[2023-10-09] MEDS: HEPARIN SODIUM,PORCINE 10,000 UNIT in SODIUM CHLORIDE 0.9% 1,000 ML IRRIGATION PRN (07:35)
[2023-10-09] MEDS: HEPARIN SODIUM,PORCINE (1 ML) 2,500 UNIT in SODIUM CHLORIDE 0.9% 250 ML IRRIGATION PRN (07:36)
[2023-10-09] MEDS: LIDOCAINE 1% INJ 10MG/ML (20 ML MDV) SQ ONE (07:38)
[2023-10-09] MEDS: VERAPAMIL SYRINGE (5 MG/10 ML) INTRAARTER ONE (07:39)
[2023-10-09] MEDS: HEPARIN SODIUM 1,000 UN/ML (10ML VL) IV ONE (07:45)
[2023-10-09] MEDS: MIDAZOLAM 2 MG/2 ML VIAL IVP ONE (07:57)
[2023-10-09] MEDS: IOPAMIDOL-370 100ML BTL INJ ONE ×2 (08:00→08:39)
[2023-10-09] MEDS: NITROGLYCERIN 1000MCG/10ML SYRINGE INTRACORON ONE (08:03)
[2023-10-09] MEDS ORDERED: CLOPIDOGREL 75 MG TAB ONE (08:06)
[2023-10-09] MEDS: CLOPIDOGREL 75 MG TAB PO ONE (08:13)
[2023-10-09] MEDS ORDERED: ATROPINE SULFATE 0.1 MG/ML 10ML SYRINGE IV PRN (08:52)
[2023-10-09] MEDS ORDERED: MAG HYDROX/AL HYDROX/SIMETH 30 ML CUP PO PRN (08:52)
[2023-10-09] MEDS ORDERED: RX INFO: IV CONTRAST WAS GIVEN 1 EACH MISC MISCELLANE PRN (08:52)
--- NOTE | 2023-10-09 09:01 | P.CARDCATH ---
Date of Procedure: 10/09/23 Description of Procedure: Cardiac Catheterization: The patient is a 72-year-old female with a history of hypertension, hyperlipidemia and diabetes mellitus who has been complaining of chest and back discomfort and had an abnormal MPI. Recommendations were made regarding cardiac catheterization, the risks and the complications were discussed with the patient who is in full understanding and agreement. Procedure Description: Patient was brought to [facility] in fasting semi-sedated state after receiving F entanyl and Benadryl achieiving moderate conscious sedated state. Using Xylocaine Anesthesia and modified Seldinger technique, a 6-Amharic sheath was introduced in the 5 radial artery . Subsequently, selective coronary angiography was performed using a 5-Amharic 3.5 bend Noris catheter. Multiple views of the coronary artery including hemiaxial views were obtained. The 6 Amharic pigtail catheter was used to cross the aortic valve and LVEDP was calculated. PCI: After removing the catheters a 6 Amharic CLS 3.5 guiding catheter was introduced and after cannulating the left main and Omni Doppler flow wire was positioned in the distal LAD and IFR was measured at 0.88. At that time a Gamervision Bowman eye IVUS catheter was introduced and imaging was performed and revealed diffuse disease with moderate calcification and distal segment with a diameter of 3.25 to 3.5 mm in diameter. Following that a 2.5 x 15 mm NC trek balloon was advanced and multiple inflation at 8 paramjit were done and after removing the balloon a 3.25 x 28 mm Xience mohsen point stent was deployed at 16 paramjit. After removing the balloon repeat IVUS was performed and subsequently a 3.75 x 15 mm NC trek balloon was advanced and 2 inflations at 10 paramjit were done. After removing the wire images were obtained and revealed stable successful stenting. Following that, catheter and sheath were removed. Hemostasis was obtained with deployment of vascular band . There was no immediate complication. Patient was returned to room in stable condition. Of note, the patient received a total of 8500 units of intravenous heparin as well as intra-arterial verapamil. She received an oral loading dose of clopidogrel. Her ACT was monitored. She had no chest discomfort but she had EKG changes with the inflations that resolved at the end of the procedure. Findings: Left main: This is a short size vessel, bifurcating into LAD and left circumflex, left main has no significant obstructive disease LAD: This is a large size vessel reaching to the apex with a wraparound apex segment giving rise to a large diagonal branch in the proximal segment. The diagonal branch has a 40 to 50% plaque. The LAD in the midsegment has long tubular lesion of about 70%. The proximal LAD has 20% plaque Left circumflex: This is a nondominant vessel giving rise to 3 obtuse marginal branch the first 1 is very proximal. The left circumflex has mild intimal disease of 10 to 20% proximally with no high-grade stenosis RCA: This is a large dominant vessel bifurcating distally to PDA and PLV the right coronary artery has diffuse intimal disease in the mid segment of 30% without any high-grade stenosis Left Ventriculogram: Not performed Hemodynamics: There was no gradient across aortic valve, LVEDP was 16-18 mmHg Conclusion: 1. 70% tubular lesion in the LAD with abnormal IFR 2. Mild disease in the left circumflex and the right coronary artery 3. Right dominance 4. Successful stenting of the mid LAD with reduction of stenosis from 70% to 0% with HUMERA-3 flow and adjunctive IVUS imaging Recommendations: The patient will continue on aspirin and clopidogrel for 6 months without any interruption in addition to aggressive coronary risks modification, attempting to maintain LDL below 70 mg/dL. The findings and the recommendations were discussed with the patient and the family and they were in full understanding and agreement. Duration of sedation is 63 minutes.
[2023-10-09] MEDS: DULoxetine HCL 60 MG CAPSULE.DR PO SCH (09:58)
[2023-10-09] MEDS: ATORVASTATIN 40 MG TAB PO SCH (09:58)
[2023-10-09 12:39] LABS: Glucose,Whole Blood 208 mg/dL (70-110)
[2023-10-09 16:17] LABS: Basophils % (A) 0 %; Eosinophils % (A) 0 %; HCT 41.2 % (34.0-46.0); HGB 13.3 gm/dL (11.4-16.0); Lymphocytes % (A) 8 %; MCH 29.1 pg (25.0-35.0); MCHC 32.3 g/dL (31.0-37.0); MCV 90.2 fL (80.0-100.0); Monocytes # (A) 0.3 k/uL (0-1.0); Monocytes % (A) 2 %; Neutrophils # (A) 11.2 k/uL (1.3-7.7); Neutrophils % (A) 89 %; Platelet Count 240 k/uL (150-450); RBC 4.57 m/uL (3.80-5.40); RDW 14.2 % (11.5-15.5); WBC 12.6 k/uL (3.8-10.6)
[2023-10-09 16:25] LABS: African American GFR (CKD) 75 (>60 ml/min/1.73 sqM); Anion Gap 7 mmol/L; Blood Urea Nitrogen 14 mg/dL (7-17); Calcium 9.2 mg/dL (8.4-10.2); Carbon Dioxide 25 mmol/L (22-30); Chloride 102 mmol/L (98-107); Glucose 234 mg/dL (74-99); Non-African American GFR(CKD) 65 (>60 ml/min/1.73 sqM); Potassium 4.3 mmol/L (3.5-5.1); Sodium 134 mmol/L (137-145)
[2023-10-09 17:24] LABS: Glucose,Whole Blood 288 mg/dL (70-110)
[2023-10-09] MEDS ORDERED: DEXTROSE 50% SYRINGE 50 ML IVP PRN ×2 (19:29)
[2023-10-09 20:24] LABS: Glucose,Whole Blood 278 mg/dL (70-110)
[2023-10-09] MEDS: oxyBUTYnin chloride 5 MG TAB PO SCH (20:33)
[2023-10-09] MEDS: INSULIN ASPART (NovoLOG) 100 UNIT/ML VIAL SQ SCH (20:33)
[2023-10-09] MEDS: GABAPENTIN 300 MG CAP PO SCH (20:33)
[2023-10-09] MEDS: ZOLPIDEM 5 MG TAB PO PRN (23:49)
[2023-10-10 05:59] LABS: Glucose,Whole Blood 203 mg/dL (70-110)
[2023-10-10] MEDS: INSULIN DETEMIR (LEVEMIR) 100 UNIT/ML SYR SQ SCH (06:33)
[2023-10-10 07:18] LABS: African American GFR (CKD) 81 (>60 ml/min/1.73 sqM); Anion Gap 5 mmol/L; Blood Urea Nitrogen 18 mg/dL (7-17); Calcium 8.9 mg/dL (8.4-10.2); Carbon Dioxide 24 mmol/L (22-30); Chloride 102 mmol/L (98-107); Glucose 203 mg/dL (74-99); Non-African American GFR(CKD) 70 (>60 ml/min/1.73 sqM); Sodium 131 mmol/L (137-145)
[2023-10-10 08:03] VITALS: BP 148/78; PULSE 75; RESP 16; TEMP 97.7
--- NOTE | 2023-10-10 08:09 | P.PN ---
Subjective Progress Note Date: 10/10/23 PROGRESS NOTE The patient is a 72-year-old female with a history of hypertension, hyperlipidemia and diabetes who has been complaining of chest discomfort and had an abnormal MPI. Underwent cardiac catheterization was found to have obstructive disease in the mid LAD with abnormal IFR. She underwent stenting of that vessel. She is doing well this morning. She denies any chest discomfort, dizziness or palpitations. She continues to be in sinus mechanism. Medications: Aspirin, Plavix 75 mg daily, gabapentin, insulin, Lipitor 40 mg daily, valsartan 320 mg daily PHYSICAL EXAMINATION: Blood pressure 148/70 heart rate 70 LUNGS: Clear to auscultation HEART: Regular rate and rhythm, S1, S2. No S3. Systolic ejection murmur ABDOMEN: Soft, nontender, no organomegaly EXTREMETIES: No edema, right radial pulse intact LAB: Potassium 4.0, BUN 18, creatinine 0.85, EKG with no acute changes in sinus mec hanism IMPRESSION: 1. Status post stenting of the mid LAD 2. Hypertension 3. Hyperlipidemia 4. Diabetes PLAN: 1. Discharge home today 2. Continue present therapy 3. Resume Xarelto 10 mg daily for chronic DVT 4. Follow-up in 1 week Objective - Vital Signs Vital signs: Vital Signs Temp 97.7 F 10/10/23 07:00 Pulse 75 10/10/23 07:00 Resp 16 10/10/23 07:00 BP 148/78 10/10/23 07:00 Pulse Ox 94 L 10/10/23 07:00 FiO2 Intake & Output 10/09/23 10/10/23 10/10/23 18:59 06:59 18:59 Intake Total 536 Balance 536 Weight 110 kg Intake: IV 300 Oral 236 Other: # Voids 2 2 - Labs CBC & Chem 7: 10/09/23 15:40 10/10/23 06:50 Labs: Abnormal Lab Results - Last 24 Hours (Table) 10/09/23 10/09/23 10/09/23 Range/Units 12:37 15:40 15:40 WBC 12.6 H (3.8-10.6) k/uL Neutrophils # 11.2 H (1.3-7.7) k/uL Sodium 134 L (137-145) mmol/L BUN (7-17) mg/dL Glucose 234 H (74-99) mg/dL POC Glucose (mg/dL) 208 H (70-110) mg/dL 10/09/23 10/09/23 10/10/23 Range/Units 17:15 20:23 05:58 WBC (3.8-10.6) k/uL Neutrophils # (1.3-7.7) k/uL Sodium (137-145) mmol/L BUN (7-17) mg/dL Glucose (74-99) mg/dL POC Glucose (mg/dL) 288 H 278 H 203 H (70-110) mg/dL 10/10/23 Range/Units 06:50 WBC (3.8-10.6) k/uL Neutrophils # (1.3-7.7) k/uL Sodium 131 L (137-145) mmol/L BUN 18 H (7-17) mg/dL Glucose 203 H (74-99) mg/dL POC Glucose (mg/dL) (70-110) mg/dL
[2023-10-10] MEDS: PANTOPRAZOLE 40 MG TABLET PO SCH (08:11)
[2023-10-10] MEDS: VALSARTAN 160 MG TAB PO SCH (08:12)
[2023-10-10] MEDS: CLOPIDOGREL 75 MG TAB PO SCH (08:12)
[2023-10-10] MEDS: ASPIRIN 81 MG PO SCH (08:12)
[2023-10-14] MEDS ORDERED: PATIENT'S OWN (Tirzepatide [Mounjaro] 5 MG/0.5 ML Pen.Injctr) SQ SCH (09:00)
== END 2023-10-10 09:56 | disposition home or self-care (01) ==
LOC: CATHCVL 05:33 → 6NMEDSUR 08:38 → CATHCVL 10-10 09:56
PROVIDERS: ATTEND Internal Medicine Interventional Cardiology
DX: I25.10 Atherosclerotic heart disease of native coronary artery without angina pectoris (principal); E11.9 Type 2 diabetes mellitus without complications; E78.5 Hyperlipidemia, unspecified; I10 Essential (primary) hypertension; Z79.02 Long term (current) use of antithrombotics/antiplatelets; Z79.899 Other long term (current) drug therapy; Z79.4 Long term (current) use of insulin; Z79.82 Long term (current) use of aspirin; Z79.01 Long term (current) use of anticoagulants
CPT/HCPCS: 93005; 92978; 93458; 93799; 80048 ×2; 85025; C9600; C1887; C1769 ×3; C1894; C1753; C1874; C1725; J2250; J1644 ×3; J2001; J3010; Q9967; J2305

== ENCOUNTER 2024-09-03 11:17 | Observation (INO) | payer MEDICARE, OTHER ==
--- NOTE | 2024-09-03 12:12 | ED ---
General Adult HPI - General Chief complaint: Chest Pain Stated complaint: Back/ R shoulder pain Time Seen by Provider: 09/03/24 11:42 Source: patient, family Mode of arrival: ambulatory Limitations: no limitations - History of Present Illness Initial comments: Dictation was produced using [employer] dictation software. please excuse any grammatical, word or spelling errors. Chief Complaint: 73-year-old female with left scapular pain History of Present Illness: Patient 73-year-old female with history of coronary artery disease. States that she has had left scapular pain since yesterday. Patient concerned she is having another heart attack because in the past she has had similar symptoms that ultimately led to her having a coronary artery stent. Patient tried some nitro which improved her symptoms slightly. Denies any associate diaphoresis or nausea The ROS documented in this emergency department record has been reviewed and confirmed by me. Those systems with pertinent positive or negative responses have been documented in the HPI. All other systems are other negative and/or noncontributory. - Related Data Home Medications Medication Instructions Recorded Confirmed Omeprazole [PriLOSEC] 40 mg PO DAILY 08/23/14 10/09/23 allopurinoL [Zyloprim] 300 mg PO DAILY 06/16/15 10/09/23 Diphenox-Atrop 2.5-0.025 mg 1 tab PO BID PRN 12/31/17 10/08/23 [Lomotil] Oxybutynin Chloride 5 mg PO BID 12/31/17 10/09/23 Cholecalciferol [Vitamin D3 (25 50 mcg PO DAILY 03/25/21 10/08/23 Mcg = 1000 Iu)] DULoxetine HCL [Cymbalta] 60 mg PO DAILY 03/25/21 10/08/23 Multivit-Min/FA/Lycopen/Lutein 1 tab PO DAILY 03/25/21 10/08/23 [Centrum Silver Tablet] Ascorbic Acid [Vitamin C] 500 mg PO DAILY 08/09/22 10/08/23 Cyanocobalamin [Vitamin B-12] 500 mcg PO DAILY 08/09/22 10/08/23 Gabapentin [Neurontin] 300 mg PO BID 08/09/22 10/09/23 Insulin Degludec [Tresiba 40 units SQ AC-BRKFST 08/09/22 10/08/23 Flextouch U-200 Pen] Magnesium Oxide [Mag-Ox] 400 mg PO DAILY 08/09/22 10/08/23 Rivaroxaban [Xarelto] 10 mg PO DAILY 08/09/22 10/09/23 Triamterene/Hydrochlorothiazid 1 each PO DAILY 08/09/22 10/08/23 [Triamterene-Hctz 37.5-25 mg Tb] Valsartan [Diovan] 320 mg PO DAILY 08/09/22 10/09/23 Zinc Gluconate [Zinc] 50 mg PO DAILY 08/09/22 10/08/23 Aspirin 81 mg PO DAILY 10/08/23 10/09/23 Melatonin 5 mg PO HS PRN 10/08/23 10/09/23 Tirzepatide [Mounjaro] 5 mg SQ TU 10/08/23 10/09/23 metFORMIN HCL [Glucophage] 500 mg PO BID 10/08/23 10/09/23 Previous Rx's Medication Instructions Recorded ALPRAZolam [Xanax] 0.5 mg PO BID PRN #6 tab 03/30/21 Ferrous Sulfate [Iron (65 MG 325 mg PO BID-W/MEALS tab 03/30/21 Elemental)] Atorvastatin [Lipitor] 40 mg PO DAILY #80 tab 10/10/23 Clopidogrel [Plavix] 75 mg PO DAILY #90 tab 10/10/23 Nitroglycerin Sl Tabs [Nitrostat] 0.4 mg SUBLINGUAL Q5M PRN #25 tab 10/10/23 Allergies Allergy/AdvReac Type Severity Reaction Status Date / Time Iodinated Contrast Media Allergy Swelling Verified 09/03/24 11:33 shellfish derived Allergy Abdominal Verified 09/03/24 11:33 Pain warfarin sodium Allergy facial Verified 09/03/24 11:33 [From Coumadin] swelling Review of Systems ROS Statement: Those systems with pertinent positive or pertinent negative responses have been documented in the HPI. ROS Other: All systems not noted in ROS Statement are negative. Past Medical History Past Medical History: Blood Disorder, Cancer, Chest Pain / Angina, Diabetes Mellitus, Deep Vein Thrombosis (DVT), GERD/Reflux, Hyperlipidemia, Hypertension, Osteoarthritis (OA), Pulmonary Embolus (PE), Sleep Apnea/CPAP/BIPAP Additional Past Medical History / Comment(s): uses CPAP, hx. melanoma, DVT,PE 2012 after traveling, urinary incontinence, neuropathy, recent stress test, SOB w/exertion History of Any Multi-Drug Resistant Organisms: None Reported Past Surgical History: Bariatric Surgery, Hysterectomy, Joint Replacement, Orthopedic Surgery, Tubal Ligation Additional Past Surgical History / Comment(s): HAD GASTRIC STAPLING WITH REVERSAL. SURG. TO DETACH LUNG FROM DIAPHRAGM. ORIF RIGHT WRIST FRACTURE. LEFT ARM HEMATOMA WITH SECONDARY SURGERY. ORIF right femur, left hip hemiarthroplasty 2021 after fx., Total left hip 08/13/22 Past Anesthesia/Blood Transfusion Reactions: Previous Problems w/ Anesthesia Additional Past Anesthesia/Blood Transfusion Reaction / Comment(s): difficulty arousing after surg. Past Psychological History: No Psychological Hx Reported Smoking Status: Former smoker Past Alcohol Use History: None Reported Past Drug Use History: None Reported - Past Family History Mother Family Medical History: Diabetes Mellitus Additional Family Medical History / Comment(s): PATIENT STATES MOTHER HAD "HEART CONDITION" Father Additional Family Medical History / Comment(s): PATIENT STATES FATHER HAD "HEART CONDITION" Son(s) Family Medical History: Deep Vein Thrombosis (DVT), Pulmonary Embolus General Exam - General Exam Comments Initial Comments: PHYSICAL EXAM: General Impression: Alert and oriented x3, not in acute distress HEENT: Normocephalic atraumatic, extra-ocular movements intact, pupils equal and reactive to light bilaterally, mucous membranes moist. Cardiovascular: Heart regular rate and rhythm Chest: Able to complete full sentences, no retractions, no tachypnea Abdomen: abdomen soft, non-tender, non-distended, no organomegaly Musculoskeletal: Pulses present and equal in all extremities, no peripheral edema Motor: no focal deficits noted Neurological: CN II-XII grossly intact, no focal motor or sensory deficits noted Skin: Intact with no visualized rashes Psych: Normal affect and mood Limitations: no limitations Course Vital Signs 09/03/24 11:25 Temperature 97.7 F Pulse Rate 75 Respiratory 18 Rate Blood Pressure 117/77 O2 Sat by Pulse 100 Oximetry EKG Findings - EKG Comments: EKG Findings:: My EKG interpretation: Ventricular rate 6, sinus rhythm, PA interval 180, QRS 83, QTc 398. No PA prolongation, no QTC prolongation, no ST or T-wave changes noted. Overall, this EKG is unremarkable Medical Decision Making - Medical Decision Making Was pt. sent in by a medical professional or institution (, PA, [facility] [employer], urgent care, hospital, or retirement...) When possible be specific @ -No Did you speak to anyone other than the patient for history (EMS, parent, family, police, friend...)? What history was obtained from this source @ -No Did you review nursing and triage notes (agree or disagree)? Why? @ -I reviewed and agree with nursing and triage notes Were old charts reviewed (outside hosp., previous admission, EMS record, old EKG, old radiological studies, urgent care reports/EKG's, retirement records)? Report findings @ -No old charts were reviewed Differential Diagnosis (chest pain, altered mental status, abdominal pain women, abdominal pain men, vaginal bleeding, musculoskeletal, weakness, fever, dyspnea, syncope, headache, dizziness, GI bleed, back pain, seizure, CVA, palpatations, m ental health)? @ -Differential Chest Pain: Stable Angina, Unstable Angina, STEMI, NSTEMI Aortic Dissection, Pneumothorax, Musculoskeletal, Esophageal Spasm GERD, Cholecystitis, Pancreatitis, Zoster, this is not meant to be an all-inclusive list. EKG interpreted by me (3pts min.). @ -See above X-rays interpreted by me (1pt min.). @ -Chest x-ray shows no acute processes CT interpreted by me (1pt min.). @ -None done U/S interpreted by me (1pt. min.). @ -None done What testing was considered but not performed or refused? (CT, X-rays, U/S, labs)? Why? @ -None What meds were considered but not given or refused? Why? @ -None Was smoking cessation discussed for >3mins.? @ -No Were there social determinants of health that impacted care today? How? (Homelessness, low income, unemployed, alcoholism, drug addiction, transportation, low edu. Level, literacy, decrease access to med. care, [facility], rehab)? @ -No Was there de-escalation of care discussed even if they declined (Discuss DNR or withdrawal of care, Hospice)? DNR status @ -No What co-morbidities impacted this encounter? (DM, HTN, Smoking, COPD, CAD, Cancer, CVA, ARF, Chemo, Hep., AIDS, mental health diagnosis, sleep apnea, mo rbid obesity)? @ -Coronary artery disease Was patient admitted / discharged? Hospital course, mention meds given and route, prescriptions, significant lab abnormalities, going to OR and other pertinent info. @ -73-year-old female presents emergency department concerns for ACS. Vital signs are stable. EKG is unremarkable. Laboratory evaluation shows no acute processes. Patient reevaluated bedside at 2:05 PM found to be stable condition. Patient has multiple high risk features will be admitted with consultation to cardiology. Case discussed with hospitalist for admission Did you discuss the management of the patient with other professionals (professionals i.e. , PA, [facility] [employer], lab, RT, psych nurse, protective services social worker, tire fabric impregnating range tender, teacher, health promotion officer, case packer and sealer)? Give summary @ -See above Was critical care preformed (if so, how long)? @ -No Undiagnosed new problem with uncertain prognosis? @ -No Drug Therapy requiring intensive monitoring for toxicity (Heparin, Nitro, Insulin, Cardizem)? @ -No Were any procedures done? @ -No Diagnosis/symptom? Acute, or Chronic, or Acute on Chronic? Uncomplicated (without systemic symptoms) or Complicated (systemic symptoms)? @ -ACS Side effects of treatment? @ -No Exacerbation, Progression, or Severe Exacerbation? @ -No Poses a threat to life or bodily function? How? (Chest pain, USA, NC, pneumonia, PE, COPD, DKA, ARF, appy, cholecystitis, CVA, Diverticulitis, Homicidal, Suicidal, threat to staff... and all critical care pts) @ -yes - Lab Data Result diagrams: 09/03/24 12:21 09/03/24 12:21 Lab Results 09/03/24 09/03/24 09/03/24 Range/Units 12:21 12:21 12:21 WBC 7.94 (4.50-10.00) 10*3/uL RBC 4.33 (4.10-5.20) 10*6/uL Hgb 13.0 (12.0-15.0) g/dL Hct 37.3 (37.2-46.3) % MCV 86.1 (80.0-97.0) fL MCH 30.0 (27.0-32.0) pg MCHC 34.9 (32.0-37.0) g/dL Plt Count 191 (140-440) 10*3/uL MPV 9.9 (9.5-12.2) fL Immature Gran % (Auto) 0.4 % Neutrophils % 61.7 % Lymphocytes % 25.6 % Monocytes % 6.5 % Eosinophils % 5.5 % Basophils % 0.3 % Immature Gran # 0.03 (0.00-0.04) 10*3/uL Neutrophils # 4.90 (1.80-7.70) 10*3/uL Lymphocytes # 2.03 (0.90-5.00) 10*3/uL Monocytes # 0.52 (0.20-1.00) 10*3/uL Eosinophils # 0.44 H (0.04-0.35) 10*3/uL Basophils # 0.02 (0.00-0.10) 10*3/uL PT 11.2 (10.0-12.5) sec INR 1.0 (<1.2) APTT 25.6 (22.0-30.0) sec Sodium 136 L (137-145) mmol/L Potassium 3.9 (3.5-5.1) mmol/L Chloride 99 (98-107) mmol/L Carbon Dioxide 23 (22-30) mmol/L Anion Gap 14 mmol/L BUN 14 (7-17) mg/dL Creatinine 0.79 (0.52-1.04) mg/dL Est GFR (CKD-EPI)AfAm 88 (>60 ml/min/1.73 sqM) Est GFR (CKD-EPI)NonAf 76 (>60 ml/min/1.73 sqM) Glucose 102 H (74-99) mg/dL Calcium 9.5 (8.4-10.2) mg/dL Magnesium 1.6 (1.6-2.3) mg/dL Total Bilirubin 0.5 (0.2-1.3) mg/dL AST 25 (14-36) U/L ALT 21 (4-34) U/L Alkaline Phosphatase 68 (38-126) U/L Troponin I (0.000-0.034) ng/mL Total Protein 6.5 (6.3-8.2) g/dL Albumin 4.2 (3.5-5.0) g/dL 09/03/24 Range/Units 12:21 WBC (4.50-10.00) 10*3/uL RBC (4.10-5.20) 10*6/uL Hgb (12.0-15.0) g/dL Hct (37.2-46.3) % MCV (80.0-97.0) fL MCH (27.0-32.0) pg MCHC (32.0-37.0) g/dL Plt Count (140-440) 10*3/uL MPV (9.5-12.2) fL Immature Gran % (Auto) % Neutrophils % % Lymphocytes % % Monocytes % % Eosinophils % % Basophils % % Immature Gran # (0.00-0.04) 10*3/uL Neutrophils # (1.80-7.70) 10*3/uL Lymphocytes # (0.90-5.00) 10*3/uL Monocytes # (0.20-1.00) 10*3/uL Eosinophils # (0.04-0.35) 10*3/uL Basophils # (0.00-0.10) 10*3/uL PT (10.0-12.5) sec INR (<1.2) APTT (22.0-30.0) sec Sodium (137-145) mmol/L Potassium (3.5-5.1) mmol/L Chloride (98-107) mmol/L Carbon Dioxide (22-30) mmol/L Anion Gap mmol/L BUN (7-17) mg/dL Creatinine (0.52-1.04) mg/dL Est GFR (CKD-EPI)AfAm (>60 ml/min/1.73 sqM) Est GFR (CKD-EPI)NonAf (>60 ml/min/1.73 sqM) Glucose (74-99) mg/dL Calcium (8.4-10.2) mg/dL Magnesium (1.6-2.3) mg/dL Total Bilirubin (0.2-1.3) mg/dL AST (14-36) U/L ALT (4-34) U/L Alkaline Phosphatase (38-126) U/L Troponin I <0.012 (0.000-0.034) ng/mL Total Protein (6.3-8.2) g/dL Albumin (3.5-5.0) g/dL Disposition Clinical Impression: ACS (acute coronary syndrome) Disposition: ADMITTED IP TO THIS HOSP Condition: Fair Referrals: Madai Simpson MD [Primary Care Provider] - 1-2 days Decision Time: 14:05
[2024-09-03 12:37] LABS: Basophils # (A) 0.02 10*3/uL (0.00-0.10); Basophils % (A) 0.3 %; Eosinophils # (A) 0.44 10*3/uL (0.04-0.35); Eosinophils % (A) 5.5 %; HCT 37.3 % (37.2-46.3); Lymphocytes # (A) 2.03 10*3/uL (0.90-5.00); Lymphocytes % (A) 25.6 %; MCHC 34.9 g/dL (32.0-37.0); MCV 86.1 fL (80.0-97.0); Mean Platelet Volume 9.9 fL (9.5-12.2); Monocytes # (A) 0.52 10*3/uL (0.20-1.00); Monocytes % (A) 6.5 %; Neutrophils % (A) 61.7 %; Platelet Count 191 10*3/uL (140-440); RBC 4.33 10*6/uL (4.10-5.20); RDW 13.5 % (11.5-14.5); WBC 7.94 10*3/uL (4.50-10.00)
[2024-09-03 12:48] LABS: Partial Thromboplastin Time 25.6 sec (22.0-30.0); Prothrombin Time 11.2 sec (10.0-12.5)
[2024-09-03 12:56] LABS: ALT 21 U/L (4-34); AST 25 U/L (14-36); African American GFR (CKD) 88 (>60 ml/min/1.73 sqM); Albumin 4.2 g/dL (3.5-5.0); Alkaline Phosphatase 68 U/L (38-126); Anion Gap 14 mmol/L; Blood Urea Nitrogen 14 mg/dL (7-17); Calcium 9.5 mg/dL (8.4-10.2); Carbon Dioxide 23 mmol/L (22-30); Chloride 99 mmol/L (98-107); Glucose 102 mg/dL (74-99); Magnesium 1.6 mg/dL (1.6-2.3); Non-African American GFR(CKD) 76 (>60 ml/min/1.73 sqM); Potassium 3.9 mmol/L (3.5-5.1); Sodium 136 mmol/L (137-145); Total Bilirubin 0.5 mg/dL (0.2-1.3); Total Protein 6.5 g/dL (6.3-8.2)
--- NOTE | 2024-09-03 13:02 | XR ---
EXAMINATION TYPE: XR chest 2V DATE OF EXAM: 09/03/2024 12:40 PM COMPARISON: 03/25/2021 CLINICAL INDICATION: Female, 73 years old with history of Chest Pain: Shortness of breath TECHNIQUE: XR chest 2V views of the chest are obtained. FINDINGS: Scattered senescent parenchymal changes noted. Hyperinflation compatible with COPD. No evidence for infiltrate. No evidence for atelectasis. Heart size is stable. Mediastinal structures are stable and grossly unremarkable. No evidence for hilar prominence. Degenerative changes dorsal spine. IMPRESSION: 1. No evidence for acute pulmonary disease. [facility], , 09/03/2024 1:00 PM
[2024-09-03] MEDS ORDERED: NITROGLYCERIN SL TABS 0.4 MG TAB SUBLINGUAL PRN ×2 (13:59→14:48)
[2024-09-03] MEDS: ASPIRIN 81 MG PO STA (14:10)
[2024-09-03] MEDS ORDERED: ALPRAZolam 0.5 MG TAB PO PRN (14:48)
--- NOTE | 2024-09-03 16:13 | P.HPIM ---
History of Present Illness H&P Date: 09/03/24 History of Presenting Illness: Patient is a very pleasant 73-year-old female with a past medical history of CAD status post stenting, hypertension, hyperlipidemia, DVT and previous PE on anticoagulation with Xarelto, obstructive sleep apnea CPAP dependent nightly, insulin-dependent diabetes mellitus, CAD, neuropathy, and urinary incontinence. She presented to our facility with a chief complaint of back pain. She reports pain beneath her left scapula beginning yesterday. She reports pain occurs at rest and seems to improve with movement and after taking sublingual nitro. She reports this pain is radiated into the right side of her neck and states it is similar to the pain she felt when she had her previous stent placed. 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 Dimas and was not sure when her last echocardiogram was completed. She denies having any chest pain or pressure, palpitations, shortness of breath, cough or congestion, dizziness, lightheadedness, diaphoresis, abdominal pain, nausea, vomiting, or experiencing any numbness/tingling/weakness in her extremities. She also reports over the past couple weeks she has been experiencing pain in her left hip as if something is wrong with her hip replacement. She reports hip replacement was back in 2022 and states that she had a fall back in December but nothing recently. Vital signs upon arrival show blood pressure 117/77, heart rate 75, respiratory rate 18, temp 97.7 F, SpO2 100% on room air. EKG showing sinus mechanism at 66 bpm with no significant T wave or ST abnormality showing no signs of acute ischemia upon personal review and interpretation. Chest x-ray negative for acute cardiopulmonary process. Labs completed and reviewed. CBC unremarkable with exception of slightly elevated eosinophils of 0.44. Coagulation profile normal findings. BMP showing sodium of 136 and blood glucose of 102 otherwise normal findings. Magnesium slightly low at 1.6. Liver profile normal findings. Troponin was negative at less than 0.012. Patient was given aspirin 324 mg x 1 dose and admitted under our services with consultation to cardiology. Review of systems: Pertinent positives and negatives as discussed in HPI, a complete review of systems was performed and all other systems are negative. Physical exam: Vital signs reviewed and stable. General: Nontoxic, no distress and appears stated age. Derm: Skin warm and dry, normal coloration for ethnicity. Head: Atraumatic, normocephalic and symmetric. Eyes: EOM's intact, no lid lag, and anicteric sclera Mouth: no lip lesions, mucus membranes moist Cardiovascular: regular rate and rhythm with normal S1S2, no murmur, positive posterior tibial pulses bilaterally, and cap refill < 2 seconds. Lungs: Respirations even, regular, and unlabored on room air. Lungs CTA bilaterally, no rhonchi, no rales, no wheezing, and no accessory muscle usage. Abdominal: soft, nontender to palpation, no guarding, no appreciable organomegaly Ext: ROM intact. No gross muscle atrophy, scant bilateral lower extremity edema, no contractures Neuro: Speech clear, face symmetrical and CN II-XII grossly intact with no noted focal neuro deficits Psych: Alert and oriented to person, place, time, and situation. Appropriate and pleasant affect. Assessment and Plan of Care: Back pain beneath scapula radiating into neck, rule out acute coronary event History of CAD status post stenting Hypertension Hyperlipidemia History of DVT and previous PE -Cardiology consulted, appreciate recommendations -Telemetry monitoring -Trend troponins -Continue cardiac medication regimen with Xarelto 10 mg daily, Plavix 75 mg daily, pravastatin 40 mg nightly, Dyazide 37.5-25 mg tablets daily, and valsartan 320 mg daily -Lipid profile with a.m. labs. -Echocardiogram Left hip pain - Patient reports pain left hip states feels like something is wrong with her hip replacement, denies recent falls but does report fall back in December. - Order placed for x-ray left hip. Insulin-dependent diabetes mellitus -Continue Lantus 20 units daily and patient placed on glycemic protocol with Humalog sliding scale. Follow-up on hemoglobin A1c results. Obstructive sleep apnea -Continue CPAP nightly and while napping. Data and imaging reviewed: As stated above in HPI. The patient is admitted with an anticipated less than 2 midnight stay for evaluation of back pain CODE STATUS: Full code DVT prophylaxis: Xarelto Discussed with: Patient, RN, and ED physician Anticipated discharge date: Pending clinical course, likely 24 to [address]: Home Patient was seen independently by Nurse Practitioner. This document was prepared using [employer] dictation software. Please allow for errors in financial aid administrator while rare they do occur. Js Rowland NP rendered care for this patient independently, reviewed the findings and plan as documented in the note above and agree with plan. I did not physically speak with or examine the patient on this date. Past Medical History Past Medical History: Blood Disorder, Cancer, Chest Pain / Angina, Diabetes Mellitus, Deep Vein Thrombosis (DVT), GERD/Reflux, Hyperlipidemia, Hypertension, Osteoarthritis (OA), Pulmonary Embolus (PE), Sleep Apnea/CPAP/BIPAP Additional Past Medical History / Comment(s): uses CPAP, hx. melanoma, DVT,PE 2011 after traveling, urinary incontinence, neuropathy, recent stress test, SOB w/exertion History of Any Multi-Drug Resistant Organisms: None Reported Past Surgical History: Bariatric Surgery, Hysterectomy, Joint Replacement, Orthopedic Surgery, Tubal Ligation Additional Past Surgical History / Comment(s): HAD GASTRIC STAPLING WITH REVERS AL. SURG. TO DETACH LUNG FROM DIAPHRAGM. ORIF RIGHT WRIST FRACTURE. LEFT ARM HEMATOMA WITH SECONDARY SURGERY. ORIF right femur, left hip hemiarthroplasty 2021 after fx., Total left hip 08/13/22 Past Anesthesia/Blood Transfusion Reactions: Previous Problems w/ Anesthesia Additional Past Anesthesia/Blood Transfusion Reaction / Comment(s): difficulty arousing after surg. Past Psychological History: No Psychological Hx Reported Smoking Status: Former smoker Past Alcohol Use History: None Reported Past Drug Use History: None Reported - Past Family History Mother Family Medical History: Diabetes Mellitus Additional Family Medical History / Comment(s): PATIENT STATES MOTHER HAD "HEART CONDITION" Father Additional Family Medical History / Comment(s): PATIENT STATES FATHER HAD "HEART CONDITION" Son(s) Family Medical History: Deep Vein Thrombosis (DVT), Pulmonary Embolus Medications and Allergies Home Medications Medication Instructions Recorded Confirmed Type allopurinoL [Zyloprim] 300 mg PO DAILY 06/16/15 09/03/24 History Oxybutynin Chloride 5 mg PO BID 12/31/17 09/03/24 History Cholecalciferol [Vitamin D3 (25 25 mcg PO HS 03/25/21 09/03/24 History Mcg = 1000 Iu)] DULoxetine HCL [Cymbalta] 60 mg PO DAILY 03/25/21 09/03/24 History Ascorbic Acid [Vitamin C] 1,000 mg PO HS 08/09/22 09/03/24 History Rivaroxaban [Xarelto] 10 mg PO DAILY 08/09/22 09/03/24 History Valsartan [Diovan] 320 mg PO DAILY 08/09/22 09/03/24 History Zinc Gluconate [Zinc] 50 mg PO HS 08/09/22 09/03/24 History Melatonin 5 mg PO HS PRN 10/08/23 09/03/24 History Clopidogrel [Plavix] 75 mg PO DAILY #90 tab 10/10/23 09/03/24 Rx Nitroglycerin Sl Tabs [Nitrostat] 0.4 mg SUBLINGUAL Q5M PRN #25 tab 10/10/23 09/03/24 Rx ALPRAZolam [Xanax] 0.5 mg PO DAILY PRN 09/03/24 09/03/24 History Calcium Carbonate [Calcium] 1,200 mg PO DAILY 09/03/24 09/03/24 History Esomeprazole Magnesium [NexIUM] 40 mg PO AC-BRKFST 09/03/24 09/03/24 History Ferrous Sulfate [Iron (65 MG 325 mg PO BID 09/03/24 09/03/24 History Elemental)] Fluticasone Nasal [place] [Flonase 2 spray EA NOSTRIL DAILY 09/03/24 09/03/24 History Nasal [place]] Gabapentin [Neurontin] 300 mg PO BID 09/03/24 09/03/24 History Insulin Degludec [Tresiba 20 units SQ DAILY 09/03/24 09/03/24 History Flextouch U-100 Pen] Magnesium Gel Rub (Unknown 1 dose TOPICAL HS 09/03/24 09/03/24 History Strength) Multivit-Min/Iron/Folic/Lutein 1 tab PO HS 09/03/24 09/03/24 History [Centrum Silver Women Tablet] Pravastatin Sodium [Pravachol] 40 mg PO HS 09/03/24 09/03/24 History Tirzepatide [Mounjaro] 10 mg SQ MO 09/03/24 09/03/24 History Triamterene/Hydrochlorothiazid 1 cap PO DAILY 09/03/24 09/03/24 History [Triamterene-Hctz 37.5-25 mg Cp] metFORMIN HCL ER [Glucophage XR] 500 mg PO BID 09/03/24 09/03/24 History Allergies Allergy/AdvReac Type Severity Reaction Status Date / Time Iodinated Contrast Media Allergy Swelling Verified 09/03/24 14:25 shellfish derived Allergy Abdominal Verified 09/03/24 14:25 Pain warfarin sodium Allergy facial Verified 09/03/24 14:25 [From Coumadin] swelling Physical Exam Vitals: Vital Signs Temp Pulse Resp BP Pulse Ox 09/03/24 11:25 97.7 F 75 18 117/77 100 Intake and Output 09/02/24 09/03/24 09/03/24 22:59 06:59 14:59 Other: Weight 96.162 kg Results CBC & Chem 7: 09/03/24 12:21 09/03/24 12:21 Labs: Abnormal Lab Results - Last 24 Hours (Table) 09/03/24 09/03/24 Range/Units 12:21 12:21 Eosinophils # 0.44 H (0.04-0.35) 10*3/uL Sodium 136 L (137-145) mmol/L Glucose 102 H (74-99) mg/dL
[2024-09-03] MEDS ORDERED: DEXTROSE 50% SYRINGE 50 ML IVP PRN ×2 (16:20)
[2024-09-03] MEDS ORDERED: HYDROcodone/APAP 5-325MG 1 EACH TAB PO PRN (16:30)
--- NOTE | 2024-09-03 17:30 | XR ---
EXAMINATION TYPE: XR Hip Complete LT DATE OF EXAM: 09/03/2024 5:26 PM COMPARISON: None. CLINICAL INDICATION: Female, 73 years old with history of reports L hip pain like something wrong rep lacement, pain TECHNIQUE: Single AP portable view of the left hip is obtained immediately postoperatively. FINDINGS: Metallic hardware from the left hip arthroplasty is seen and appears satisfactory in align ment and position. There is evidence of recent surgery with subcutaneous gas noted laterally. IMPRESSION: Metallic hardware from the left hip arthroplasty is satisfactory in position. [facility], , 09/03/2024 5:28 PM
[2024-09-03 17:39] LABS: Glucose,Whole Blood 92 mg/dL (70-110)
[2024-09-03] MEDS: MAGNESIUM SULFATE-D5W PMX 1 GM in DEXTROSE/WATER 1 100ML.BAG IVPB SCH (17:42)
[2024-09-03] MEDS: INSULIN LISPRO (HumaLOG) 100 UNIT/ML 10 mL VL SQ SCH (17:57)
[2024-09-03] MEDS ORDERED: ZINC OXIDE PASTE (Z-GUARD) 1 APPLIC TOPICAL PRN (18:33)
[2024-09-03 20:27] LABS: Glucose,Whole Blood 124 mg/dL (70-110)
[2024-09-03] MEDS: GABAPENTIN 300 MG CAP PO SCH (21:23)
[2024-09-03] MEDS: PRAVASTATIN SODIUM 40 MG TAB PO SCH (21:23)
[2024-09-03] MEDS: CHOLECALCIFEROL 25 MCG (1000 IU) TABLET PO SCH (21:23)
[2024-09-03] MEDS: oxyBUTYnin chloride 5 MG TAB PO SCH (21:23)
[2024-09-03] MEDS: ASCORBIC ACID 500 MG TAB PO SCH (21:23)
[2024-09-03] MEDS: MULTIVITAMINS, THERA 1 EACH TAB PO SCH (21:23)
[2024-09-03] MEDS: FERROUS SULFATE 325 MG TAB PO SCH (21:24)
[2024-09-03] MEDS: ZINC SULFATE 220 MG CAP PO SCH (21:24)
[2024-09-03] MEDS: MELATONIN 5 MG TABLET PO PRN (23:02)
[2024-09-03] MEDS: ACETAMINOPHEN TAB 325 MG TAB PO PRN (23:02)
[2024-09-04 01:15] VITALS: RESP 17
[2024-09-04 06:03] LABS: Glucose,Whole Blood 117 mg/dL (70-110)
[2024-09-04 07:49] VITALS: BP 125/69; PULSE 73; TEMP 97.5
[2024-09-04] MEDS ORDERED: ASPIRIN 325 MG TAB PO SCH (09:00)
[2024-09-04] MEDS ORDERED: FLUTICASONE NASAL 50MCG/SPRAY 16GM BTL EA NOSTRIL SCH (09:00)
[2024-09-04] MEDS: PANTOPRAZOLE 40 MG TABLET PO SCH (09:20)
[2024-09-04] MEDS: CALCIUM CARB-VIT D 500 MG-5 MCG TAB PO SCH (09:20)
--- NOTE | 2024-09-04 09:52 | P.CNOR ---
History of Present Illness - HPI Consult date: 09/04/24 Consult reason: other (Left hip pain s/p JAMES in 2022) History of present illness: Georgie is a 73-year-old female who presented to the emergency department at [facility] with chest pain. The patient was admitted for observation due to a history of OK. She is also experiencing left hip pain. She is status post revision left total hip arthroplasty after a previous left hip hemiarthroplasty on 08/13/[address] John Harper. She states that she fell in December 2023 and has had left hip pain since then. She did not seek care after the fall and the pain has come and gone since then. Most of her pain is on the side of her hip and does not radiate down her leg much. She has no numbness or tingling in her leg. Orthopedics was consulted for further evaluation and care. Review of Systems Constitutional: Denies chills, Denies fatigue, Denies fever Cardiovascular: Denies shortness of breath Gastrointestinal: Denies diarrhea, Denies nausea, Denies vomiting Musculoskeletal: left: hip pain, hip stiffness Past Medical History Past Medical History: Blood Disorder, Cancer, Chest Pain / Angina, Diabetes Mellitus, Deep Vein Thrombosis (DVT), GERD/Reflux, Hyperlipidemia, Hypertension, Osteoarthritis (OA), Pulmonary Embolus (PE), Sleep Apnea/CPAP/BIPAP Additional Past Medical History / Comment(s): uses CPAP, hx. melanoma, DVT,PE 2011 after traveling, urinary incontinence, neuropathy, recent stress test, SOB w/exertion History of Any Multi-Drug Resistant Organisms: None Reported Past Surgical History: Bariatric Surgery, Hysterectomy, Joint Replacement, Orthopedic Surgery, Tubal Ligation Additional Past Surgical History / Comment(s): HAD GASTRIC STAPLING WITH REVERSAL. SURG. TO DETACH LUNG FROM DIAPHRAGM. ORIF RIGHT WRIST FRACTURE. LEFT ARM HEMATOMA WITH SECONDARY SURGERY. ORIF right femur, left hip hemiarthroplasty 2021 after fx., Total left hip 08/13/22 Past Anesthesia/Blood Transfusion Reactions: Previous Problems w/ Anesthesia Additional Past Anesthesia/Blood Transfusion Reaction / Comm: difficulty arousing after surg. Past Psychological History: No Psychological Hx Reported Smoking Status: Former smoker Past Alcohol Use History: None Reported Past Drug Use History: None Reported - Past Family History Mother Family Medical History: Diabetes Mellitus Additional Family Medical History / Comment(s): PATIENT STATES MOTHER HAD "HEART CONDITION" Father Additional Family Medical History / Comment(s): PATIENT STATES FATHER HAD "HEART CONDITION" Son(s) Family Medical History: Deep Vein Thrombosis (DVT), Pulmonary Embolus Medications and Allergies Home Medications Medication Instructions Recorded Confirmed Type allopurinoL [Zyloprim] 300 mg PO DAILY 06/16/15 09/03/24 History Oxybutynin Chloride 5 mg PO BID 12/31/17 09/03/24 History Cholecalciferol [Vitamin D3 (25 25 mcg PO HS 03/25/21 09/03/24 History Mcg = 1000 Iu)] DULoxetine HCL [Cymbalta] 60 mg PO DAILY 03/25/21 09/03/24 History Ascorbic Acid [Vitamin C] 1,000 mg PO HS 08/09/22 09/03/24 History Rivaroxaban [Xarelto] 10 mg PO DAILY 08/09/22 09/03/24 History Valsartan [Diovan] 320 mg PO DAILY 08/09/22 09/03/24 History Zinc Gluconate [Zinc] 50 mg PO HS 08/09/22 09/03/24 History Melatonin 5 mg PO HS PRN 10/08/23 09/03/24 History Clopidogrel [Plavix] 75 mg PO DAILY #90 tab 10/10/23 09/03/24 Rx Nitroglycerin Sl Tabs [Nitrostat] 0.4 mg SUBLINGUAL Q5M PRN #25 tab 10/10/23 09/03/24 Rx ALPRAZolam [Xanax] 0.5 mg PO DAILY PRN 09/03/24 09/03/24 History Calcium Carbonate [Calcium] 1,200 mg PO DAILY 09/03/24 09/03/24 History Esomeprazole Magnesium [NexIUM] 40 mg PO AC-BRKFST 09/03/24 09/03/24 History Ferrous Sulfate [Iron (65 MG 325 mg PO BID 09/03/24 09/03/24 History Elemental)] Fluticasone Nasal [place] [Flonase 2 spray EA NOSTRIL DAILY 09/03/24 09/03/24 History Nasal [place]] Gabapentin [Neurontin] 300 mg PO BID 09/03/24 09/03/24 History Insulin Degludec [Tresiba 20 units SQ DAILY 09/03/24 09/03/24 History Flextouch U-100 Pen] Magnesium Gel Rub (Unknown 1 dose TOPICAL HS 09/03/24 09/03/24 History Strength) Multivit-Min/Iron/Folic/Lutein 1 tab PO HS 09/03/24 09/03/24 History [Centrum Silver Women Tablet] Pravastatin Sodium [Pravachol] 40 mg PO HS 09/03/24 09/03/24 History Tirzepatide [Mounjaro] 10 mg SQ MO 09/03/24 09/03/24 History Triamterene/Hydrochlorothiazid 1 cap PO DAILY 09/03/24 09/03/24 History [Triamterene-Hctz 37.5-25 mg Cp] metFORMIN HCL ER [Glucophage XR] 500 mg PO BID 09/03/24 09/03/24 History Allergies Allergy/AdvReac Type Severity Reaction Status Date / Time Iodinated Contrast Media Allergy Swelling Verified 09/03/24 14:25 shellfish derived Allergy Abdominal Verified 09/03/24 14:25 Pain warfarin sodium Allergy facial Verified 09/03/24 14:25 [From Coumadin] swelling Physical Examination Georgie is a 73-year-old female who is in no acute distress. She is alert and oriented x 3. The patient was seen at the bedside today. Exam of the left hip reveals a well-healed incision with no open wounds or redness. No pain upon external or internal rotation of the hip. There is point tenderness over the greater trochanter/bursa. No pain in the left knee. Calf is soft and nontender. Good foot and ankle motion. Results X-rays of the left hip taken on 09/03/2024 reveals good position of the components. No fractures or dislocation seen. - Labs Labs: Abnormal Lab Results - Last 24 Hours (Table) 09/03/24 09/03/24 09/03/24 Range/Units 12:21 12:21 20: Eosinophils # 0.44 H (0.04-0.35) 10*3/uL Sodium 136 L (137-145) mmol/L Glucose 102 H (74-99) mg/dL POC Glucose (mg/dL) 124 H (70-110) mg/dL 09/04/24 Range/Units 06:02 Eosinophils # (0.04-0.35) 10*3/uL Sodium (137-145) mmol/L Glucose (74-99) mg/dL POC Glucose (mg/dL) 117 H (70-110) mg/dL H & H 09/03/24 Range/Units 12:21 Hgb 13.0 (12.0-15.0) g/dL Hct 37.3 (37.2-46.3) % Coagulation 09/03/24 Range/Units 12:21 INR 1.0 (<1.2) Result Diagrams: 09/04/24 03:17 09/04/24 03:17 Assessment and Plan (1) Trochanteric bursitis of left hip Current Visit: Yes Status: Acute Code(s): M70.62 - TROCHANTERIC BURSITIS, LEFT HIP SNOMED Code(s): 6870950 (2) Status post revision of total hip replacement Current Visit: No Status: Acute Code(s): Z96.649 - PRESENCE OF UNSPECIFIED ARTIFICIAL HIP JOINT SNOMED Code(s): 459357892 Plan: The clinical and x-ray finding were discussed with the patient. The case was discussed with Dr. Pugh. Her total hip components look good. There are no signs of loosening, dislocation or fracture. There is tenderness over the trochanteric bursa that was likely irritated with her fall in December. Her pain comes and goes still. Options for treatment were discussed including heat/ice, antiinflammatories, physical therapy, or cortisone injection. She will try conservative measures at this time and will contact the office if her pain does not improve. She is orthopedically stable for discharge home.
[2024-09-04 09:54] LABS: HCT 35.4 % (37.2-46.3); HGB 11.9 g/dL (12.0-15.0); MCH 29.1 pg (27.0-32.0); MCHC 33.6 g/dL (32.0-37.0); MCV 86.6 FL (80.0-97.0); Mean Platelet Volume 10.7 FL (9.5-12.2); NRBC Per 100 WBC 0 X 10*3/uL (0.00-0.01); Platelet Count 174 X 10*3/uL (140-440); RBC 4.09 X 10*6/uL (4.10-5.20); RDW 13.6 % (11.5-14.5); WBC 7.99 X 10*3/uL (4.50-10.00)
[2024-09-04 10:12] LABS: BUN/Creat Ratio 15.22 Ratio (12.00-20.00); Blood Urea Nitrogen 13.7 mg/dL (9.0-27.0); Carbon Dioxide 21.8 mmol/L (21.6-31.8); Chloride 99 mmol/L (96-109); Chol/HDL Ratio 3.81 Ratio; Glucose 112 mg/dL (70-110); LDL Cholesterol,Calculated 59.6 mg/dL (0.0-131.0); Magnesium 1.8 mg/dL (1.5-2.4); Potassium 3.9 mmol/L (3.5-5.5); Sodium 134 mmol/L (135-145)
[2024-09-04 10:13] LABS: Calcium 8.7 mg/dL (8.7-10.3)
[2024-09-04 11:59] LABS: Glucose,Whole Blood 123 mg/dL (70-110)
[2024-09-04] MEDS ORDERED: METOPROLOL SUCCINATE (ER) 25 MG TAB.ER.24H PO SCH (13:15)
--- NOTE | 2024-09-04 13:17 | P.CRDCN ---
History of Present Illness Consult date: 09/04/24 History of present illness: HISTORY OF PRESENTING ILLNESS: 73-year-old female presented to the hospital because of symptoms of pain in the left upper side of the back near the scapula. This pain could be mostly when she is sitting but would get better when she would move around. This pain did get better with nitroglycerin that she took yesterday but her pain did come back therefore she presented to the hospital to make sure there is no underlying cardiac etiology. She has prior history of coronary artery disease which was diagnosed with an abnormal stress test for atypical symptoms of chest heaviness which was again mostly when she is resting but not when she was doing physical activity. Admission Vitals: 154/73, heart rate 63 Admission Labs: Hb 11, BUN 13, creatinine 0.9, TG 196, LDL 59, HDL 35, A1c 6.7, troponin x 3 were negative Admission EKG: Admission ECG shows sinus rhythm, Q waves in inferior lead, heart rate 66 bpm, repeat EKG shows similar finding Imaging: Chest x-ray does not show any acute congestion or consolidation. Prior cardiac testing: Heart catheterization from 09/2023 showed 70% disease in proximal LAD with IFR abnormality status post PCI. Residual mild disease in RCA and LCx. 40-50% disease in diagonal artery. REVIEW OF SYSTEMS: 14 point review of system is negative except what is mentioned above in HPI. PHYSICAL EXAMINATION: Neck: Brisk carotid upstroke, no jugular venous distention. Lungs: Clear to auscultation. Heart: Regular rate and rhythm, S1-S2, , no murmur or rub. Abdomen: Soft nontender, positive bowel sounds. Extremities: No edema, intact distal pulses. Neuro: Alert, oritented, no focal deficits. Detailed neuro exam was not performed. ASSESSMENT: # Atypical chest pain, rule out of ACS # Essential hypertension, controlled # Type 2 diabetes # Prior history of DVT and PE # Prior history of CAD with PCI to proximal LAD 2023 # Obstructive sleep apnea PLAN: Continue home medications include Plavix 75, valsartan 320, Xarelto 10 daily, Dyazide, pravastatin Add metoprolol succinate 25 mg daily for antianginal She has an appointment with Dr. Dimas coming Friday. Consider outpatient echocardiogram and stress test Cleared from cardiovascular standpoint to go home Preston Bañuelos MD, FACC, RPVI Thank you for allowing [facility] to participate in this patient's care. Feel free to reach out in case of any followup questions. Past Medical History Past Medical History: Blood Disorder, Cancer, Chest Pain / Angina, Diabetes Mellitus, Deep Vein Thrombosis (DVT), GERD/Reflux, Hyperlipidemia, Hypertension, Osteoarthritis (OA), Pulmonary Embolus (PE), Sleep Apnea/CPAP/BIPAP Additional Past Medical History / Comment(s): uses CPAP, hx. melanoma, DVT,PE 2011 after traveling, urinary incontinence, neuropathy, recent stress test, SOB w/exertion History of Any Multi-Drug Resistant Organisms: None Reported Past Surgical History: Bariatric Surgery, Hysterectomy, Joint Replacement, Orthopedic Surgery, Tubal Ligation Additional Past Surgical History / Comment(s): HAD GASTRIC STAPLING WITH REVERSAL. SURG. TO DETACH LUNG FROM DIAPHRAGM. ORIF RIGHT WRIST FRACTURE. LEFT ARM HEMATOMA WITH SECONDARY SURGERY. ORIF right femur, left hip hemiarthroplasty 2021 after fx., Total left hip 08/13/22 Past Anesthesia/Blood Transfusion Reactions: Previous Problems w/ Anesthesia Additional Past Anesthesia/Blood Transfusion Reaction / Comment(s): difficulty arousing after surg. Past Psychological History: No Psychological Hx Reported Smoking Status: Former smoker Past Alcohol Use History: None Reported Past Drug Use History: None Reported - Past Family History Mother Family Medical History: Diabetes Mellitus Additional Family Medical History / Comment(s): PATIENT STATES MOTHER HAD "HEART CONDITION" Father Additional Family Medical History / Comment(s): PATIENT STATES FATHER HAD "HEART CONDITION" Son(s) Family Medical History: Deep Vein Thrombosis (DVT), Pulmonary Embolus Medications and Allergies Home Medications Medication Instructions Recorded Confirmed Type allopurinoL [Zyloprim] 300 mg PO DAILY 06/16/15 09/03/24 History Oxybutynin Chloride 5 mg PO BID 12/31/17 09/03/24 History Cholecalciferol [Vitamin D3 (25 25 mcg PO HS 03/25/21 09/03/24 History Mcg = 1000 Iu)] DULoxetine HCL [Cymbalta] 60 mg PO DAILY 03/25/21 09/03/24 History Ascorbic Acid [Vitamin C] 1,000 mg PO HS 08/09/22 09/03/24 History Rivaroxaban [Xarelto] 10 mg PO DAILY 08/09/22 09/03/24 History Valsartan [Diovan] 320 mg PO DAILY 08/09/22 09/03/24 History Zinc Gluconate [Zinc] 50 mg PO HS 08/09/22 09/03/24 History Melatonin 5 mg PO HS PRN 10/08/23 09/03/24 History Clopidogrel [Plavix] 75 mg PO DAILY #90 tab 10/10/23 09/03/24 Rx Nitroglycerin Sl Tabs [Nitrostat] 0.4 mg SUBLINGUAL Q5M PRN #25 tab 10/10/23 09/03/24 Rx ALPRAZolam [Xanax] 0.5 mg PO DAILY PRN 09/03/24 09/03/24 History Calcium Carbonate [Calcium] 1,200 mg PO DAILY 09/03/24 09/03/24 History Esomeprazole Magnesium [NexIUM] 40 mg PO AC-BRKFST 09/03/24 09/03/24 History Ferrous Sulfate [Iron (65 MG 325 mg PO BID 09/03/24 09/03/24 History Elemental)] Fluticasone Nasal [place] [Flonase 2 spray EA NOSTRIL DAILY 09/03/24 09/03/24 History Nasal [place]] Gabapentin [Neurontin] 300 mg PO BID 09/03/24 09/03/24 History Insulin Degludec [Tresiba 20 units SQ DAILY 09/03/24 09/03/24 History Flextouch U-100 Pen] Magnesium Gel Rub (Unknown 1 dose TOPICAL HS 09/03/24 09/03/24 History Strength) Multivit-Min/Iron/Folic/Lutein 1 tab PO HS 09/03/24 09/03/24 History [Centrum Silver Women Tablet] Pravastatin Sodium [Pravachol] 40 mg PO HS 09/03/24 09/03/24 History Tirzepatide [Mounjaro] 10 mg SQ MO 09/03/24 09/03/24 History Triamterene/Hydrochlorothiazid 1 cap PO DAILY 09/03/24 09/03/24 History [Triamterene-Hctz 37.5-25 mg Cp] metFORMIN HCL ER [Glucophage XR] 500 mg PO BID 09/03/24 09/03/24 History Allergies Allergy/AdvReac Type Severity Reaction Status Date / Time Iodinated Contrast Media Allergy Swelling Verified 09/03/24 14:25 shellfish derived Allergy Abdominal Verified 09/03/24 14:25 Pain warfarin sodium Allergy facial Verified 09/03/24 14:25 [From Coumadin] swelling Physical Exam Vitals: Vital Signs Temp Pulse Pulse Resp BP BP BP 09/04/24 07:24 97.5 F L 73 17 125/69 09/04/24 01:15 98.2 F 69 17 144/61 09/03/24 19:20 98.4 F 63 16 154/73 09/03/24 18:09 62 19 09/03/24 16:55 97.5 F L 79 15 153/83 09/03/24 16:00 72 18 114/76 09/03/24 15:00 76 18 128/77 09/03/24 14:00 75 18 126/71 Pulse Ox 09/04/24 07:24 97 09/04/24 01:15 96 09/03/24 19:20 96 09/03/24 18:09 09/03/24 16:55 99 09/03/24 16:00 95 09/03/24 15:00 98 09/03/24 14:00 98 Intake and Output 09/03/24 09/04/24 09/04/24 22:59 06:59 14:59 Other: # Voids 3 2 Results 09/04/24 03:17 09/04/24 03:17 Cardiac Enzymes 09/03/24 09/03/24 Range/Units 15:04 18:27 Troponin I <0.012 <0.012 (0.000-0.034) ng/mL Lipids 09/04/24 Range/Units 03:17 Triglycerides 196.00 H (0.00-149.00) mg/dL Cholesterol 134.00 (0.00-200.00) mg/dL HDL Cholesterol 35.20 L (40.00-60.00) mg/dL Cholesterol/HDL Ratio 3.81 Ratio CBC 09/04/24 Range/Units 03:17 WBC 7.99 (4.50-10.00) X 10*3/uL RBC 4.09 L (4.10-5.20) X 10*6/uL Hgb 11.9 L (12.0-15.0) g/dL Hct 35.4 L (37.2-46.3) % Plt Count 174 (140-440) X 10*3/uL Comprehensive Metabolic Panel 09/04/24 Range/Units 03:17 Sodium 134 L (135-145) mmol/L Potassium 3.9 (3.5-5.5) mmol/L Chloride 99 (96-109) mmol/L Carbon Dioxide 21.8 (21.6-31.8) mmol/L BUN 13.7 (9.0-27.0) mg/dL Creatinine 0.9 (0.6-1.5) mg/dL Glucose 112 H (70-110) mg/dL Calcium 8.7 (8.7-10.3) mg/dL Current Medications Generic Name Dose Route Start Last Admin Trade Name Freq PRN Reason Stop Dose Admin Acetaminophen 650 mg 09/03/24 16:30 09/03/24 23:02 Acetaminophen Tab 325 Mg Tab PO 650 mg Q6HR PRN Administration Mild Pain or Fever > 100.5 Hydrocodone Bitart/Acetaminophen 1 each 09/03/24 16:30 Hydrocodone/Apap 5-325mg 1 Each Tab PO Q4HR PRN Moderate Pain (Scale 4 to 6) Allopurinol 300 mg 09/04/24 09:00 Allopurinol 300 Mg Tab PO DAILY [facility] Alprazolam 0.5 mg 09/03/24 14:48 Alprazolam 0.5 Mg Tab PO DAILY PRN Anxiety Ascorbic Acid 1,000 mg 09/03/24 21:00 09/03/24 21:23 Ascorbic Acid 500 Mg Tab PO 1,000 mg HS [facility] Administration Calcium Carbonate 2 each 09/04/24 09:00 09/04/24 09:20 Calcium Carb-Vit D 500 Mg-5 Mcg Tab PO Not Given DAILY [facility] Cholecalciferol 25 mcg 09/03/24 21:00 09/03/24 21:23 Cholecalciferol 25 Mcg (1000 Iu) Tablet PO 25 mcg HS [facility] Administration Clopidogrel Bisulfate 75 mg 09/04/24 09:00 Clopidogrel 75 Mg Tab PO DAILY [facility] Dextrose/Water 25 ml 09/03/24 16:20 Dextrose 50% Syringe 50 Ml IVP PER PROTOCOL PRN Hypoglycemia Protocol Dextrose/Water 50 ml 09/03/24 16:20 Dextrose 50% Syringe 50 Ml IVP PER PROTOCOL PRN Hypoglycemia Protocol Duloxetine HCl 60 mg 09/04/24 09:00 Duloxetine Hcl 60 Mg Capsule.Dr PO DAILY [facility] Ferrous Sulfate 325 mg 09/03/24 21:00 09/04/24 09:20 Ferrous Sulfate 325 Mg Tab PO Not Given BID [facility] Fluticasone Propionate 2 spray 09/04/24 09:00 Fluticasone Nasal 50mcg/[place] 16gm Btl EA NOSTRIL DAILY [facility] Gabapentin 300 mg 09/03/24 21:00 09/03/24 21:23 Gabapentin 300 Mg Cap PO 300 mg BID [facility] Administration Insulin Glargine 20 unit 09/04/24 09:00 Insulin Glargine (Lantus) 100 Unit/Ml Syr SQ DAILY [facility] Insulin Human Lispro 0 unit 09/03/24 17:30 09/04/24 06:05 Insulin Lispro (Humalog) 100 Unit/Ml 10 Ml Vl SQ Not Given ACHS [facility] Protocol Melatonin 5 mg 09/03/24 14:48 09/03/24 23:02 Melatonin 5 Mg Tablet PO 5 mg HS PRN Administration Insomnia Metoprolol Succinate 25 mg 09/04/24 13:15 Metoprolol Succinate (Er) 25 Mg Tab.Er.24h PO DAILY [facility] Multivitamins 1 each 09/03/24 21:00 09/03/24 21:23 Multivitamins, Thera 1 Each Tab PO 1 each HS [facility] Administration Nitroglycerin 0.4 mg 09/03/24 14:48 Nitroglycerin Sl Tabs 0.4 Mg Tab SUBLINGUAL Q5M PRN Chest Pain Oxybutynin Chloride 5 mg 09/03/24 21:00 09/03/24 21:23 Oxybutynin Chloride 5 Mg Tab PO 5 mg BID [facility] Administration Pantoprazole Sodium 40 mg 09/04/24 07:30 09/04/24 09:20 Pantoprazole 40 Mg Tablet PO Not Given AC-BRKFST [facility] Petrolatum 1 applic 09/03/24 18:33 Zinc Oxide Paste (Z-Guard) 1 Applic TOPICAL BID PRN [facility] Protocol Pravastatin Sodium 40 mg 09/03/24 21:00 09/03/24 21:23 Pravastatin Sodium 40 Mg Tab PO 40 mg HS [facility] Administration Rivaroxaban 10 mg 09/04/24 09:00 Rivaroxaban 10 Mg Tab PO DAILY [facility] Protocol Triamterene/Hydrochlorothiazide 1 each 09/04/24 09:00 Triamterene-Hctz 37.5-25mg 1 Each Cap PO DAILY [facility] Valsartan 320 mg 09/04/24 09:00 Valsartan 160 Mg Tab PO DAILY [facility] Zinc Sulfate 220 mg 09/03/24 21:00 09/03/24 21:24 Zinc Sulfate 220 Mg Cap PO 220 mg HS [facility] Administration Intake and Output 09/03/24 09/04/24 09/04/24 22:59 06:59 14:59 Other: # Voids 3 2 09/04/24 03:17 09/04/24 03:17
[2024-09-04] MEDS: TRIAMTERENE-HCTZ 37.5-25MG 1 EACH CAP PO SCH (14:19)
[2024-09-04] MEDS: VALSARTAN 160 MG TAB PO SCH (14:19)
[2024-09-04] MEDS: INSULIN GLARGINE (LANTUS) 100 UNIT/ML SYR SQ SCH (14:19)
[2024-09-04] MEDS: DULoxetine HCL 60 MG CAPSULE.DR PO SCH (14:20)
[2024-09-04] MEDS: RIVAROXABAN 10 MG TAB PO SCH (14:20)
[2024-09-04] MEDS: CLOPIDOGREL 75 MG TAB PO SCH (14:20)
[2024-09-04] MEDS: allopurinoL 300 MG TAB PO SCH (14:20)
--- NOTE | 2024-09-04 15:18 | P.DS ---
Providers Date of admission: 09/03/24 13:59 Expected date of discharge: 09/04/24 Attending physician: Aundrea Billy MD Consults: 09/03/24 13:59 Consult Physician Urgent Consulting Provider: Preston Bañuelos Consult Reason/Comments: chest pain Do you want consulting provider notified?: Yes 09/03/24 19:00 Consult Physician Routine Consulting Provider: Teena Pugh Consult Reason/Comments: hip repl 07/2022 by calista, pt c/o pain x-ray sh owing subcutaneos air Do you want consulting provider notified?: Yes Primary care physician: Madai Simpson MD Hospital Course: Discharge Diagnosis: Back pain beneath scapula radiating into neck, acute coronary event ruled out History of CAD status post stenting Hypertension Hyperlipidemia History of DVT and previous PE Left hip pain. Hip x-ray revealed metallic hardware from the left hip arthroplasty is satisfactory and in position reporting evidence of subcutaneous gas noted laterally. Orthopedic surgery was consulted and reviewed imaging reporting findings consistent with trochanteric bursitis of left hip recommending heat/ice, anti-inflammatories, outpatient PT/OT, or cortisone injection. Patient would like to try conservative measures at this time and to follow-up outpatient with orthopedic surgery if further needs Insulin-dependent diabetes mellitus -Continue Lantus 20 units daily and patient placed on glycemic protocol with Humalog sliding scale. Follow-up on hemoglobin A1c results. Obstructive sleep apnea -Continue CPAP nightly and while napping. Hospital Course: Patient is a very pleasant 73-year-old female with a past medical history of CAD status post stenting, hypertension, hyperlipidemia, DVT and previous PE on anticoagulation with Xarelto, obstructive sleep apnea CPAP dependent nightly, insulin-dependent diabetes mellitus, CAD, neuropathy, and urinary incontinence. She presented to our facility with a chief complaint of back pain. She reports pain beneath her left scapula beginning yesterday. She reports pain occurs at rest and seems to improve with movement and after taking sublingual nitro. She reports this pain is radiated into the right side of her neck and states it is similar to the pain she felt when she had her previous stent placed. Patient reports she follows with supervisor mold yard Dr. Dimas and was not sure when her last echocardiogram was completed. She denies having any chest pain or pressure, palpitations, shortness of breath, cough or congestion, dizziness, lig htheadedness, diaphoresis, abdominal pain, nausea, vomiting, or experiencing any numbness/tingling/weakness in her extremities. She also reports over the past couple weeks she has been experiencing pain in her left hip as if something is wrong with her hip replacement. She reports hip replacement was back in 2022 and states that she had a fall back in December but nothing recently. Vital signs upon arrival show blood pressure 117/77, heart rate 75, respiratory rate 18, temp 97.7 F, SpO2 100% on room air. EKG showing sinus mechanism at 66 bpm with no significant T wave or ST abnormality showing no signs of acute ischemia upon personal review and interpretation. Chest x-ray negative for acute cardiopulmonary process. Labs completed and reviewed. CBC unremarkable with exception of slightly elevated eosinophils of 0.44. Coagulation profile normal findings. BMP showing sodium of 136 and blood glucose of 102 otherwise normal findings. Magnesium slightly low at 1.6. Liver profile normal findings. Troponin was negative at less than 0.012. Patient was given aspirin 324 mg x 1 dose and admitted under our services with consultation to cardiology. Hip x-ray revealed metallic hardware from the left hip arthroplasty is satisfactory and in position reporting evidence of subcutaneous gas noted laterally. Orthopedic surgery was consulted and reviewed imaging reporting findings consistent with trochanteric bursitis of left hip recommending heat/ice, anti-inflammatories, outpatient PT/OT, or cortisone injection. Patient would like to try conservative measures at this time and to follow-up outpatient with orthopedic surgery if further needs. Troponins were trended throughout the night all negative at less than 0.012 x 3 draws. Hemoglobin A1c resulting at 6.7%. Lipid profile showing elevated triglycerides of 196 and a low HDL of 35.20. Patient reported improvement of upper back pain this morning. Patient was evaluated by supervisor [employer] yard recommending adding metoprolol succinate 25 mg daily for antianginal benefits and for patient to follow-up outpatient with Dr. Muniz as scheduled this Friday for consideration of echocardiogram and outpatient stress test. Cardiology clearing patient from cardiac perspective. Patient medically optimized for discharge at this time. Patient to follow-up outpatient with PCP in 1 to 2 days, supervisor [employer] yard next week, and with orthopedic surgery as needed Physical exam: Vital signs reviewed and stable. General: Nontoxic, no distress and appears stated age. Derm: Skin warm and dry, normal coloration for ethnicity. Head: Atraumatic, normocephalic and symmetric. Eyes: EOM's intact, no lid lag, and anicteric sclera Mouth: no lip lesions, mucus membranes moist Cardiovascular: regular rate and rhythm with normal S1S2, no murmur, positive posterior tibial pulses bilaterally, and cap refill < 2 seconds. Lungs: Respirations even, regular, and unlabored on room air. Lungs CTA bilaterally, no rhonchi, no rales, no wheezing, and no accessory muscle usage. Abdominal: soft, nontender to palpation, no guarding, no appreciable organomegaly Ext: ROM intact. No gross muscle atrophy, scant bilateral lower extremity edema, no contractures Neuro: Speech clear, face symmetrical and CN II-XII grossly intact with no noted focal neuro deficits Psych: Alert and oriented to person, place, time, and situation. Appropriate and pleasant affect. A total of 34 minutes of time were spent preparing this complex discharge summary. Pt was discharged on 09/04/24 at 1:38 PM Patient was seen independently by Nurse Practitioner. This document was prepared using [employer] dictation software. Please allow for errors in piano technician while rare they do occur. Js Rowland NP rendered care for this patient independently, reviewed the findings and plan as documented in the note above. I did not physically speak with or examine the patient on this date. Patient Condition at Discharge: Stable Plan - Discharge Summary Discharge Rx Participant: Yes New Discharge Prescriptions: New Metoprolol Succinate (ER) [Toprol XL] 25 mg PO DAILY 30 Days #30 tab Continue allopurinoL [Zyloprim] 300 mg PO DAILY Oxybutynin Chloride 5 mg PO BID DULoxetine HCL [Cymbalta] 60 mg PO DAILY Zinc Gluconate [Zinc] 50 mg PO HS Valsartan [Diovan] 320 mg PO DAILY Melatonin 5 mg PO HS PRN PRN Reason: Insomnia Nitroglycerin Sl Tabs [Nitrostat] 0.4 mg SUBLINGUAL Q5M PRN #25 tab PRN Reason: Chest Pain Triamterene/Hydrochlorothiazid [Triamterene-Hctz 37.5-25 mg Cp] 1 cap PO DAILY Pravastatin Sodium [Pravachol] 40 mg PO HS ALPRAZolam [Xanax] 0.5 mg PO DAILY PRN PRN Reason: Anxiety Esomeprazole Magnesium [NexIUM] 40 mg PO AC-BRKFST Insulin Degludec [Tresiba Flextouch U-100 Pen] 20 units SQ DAILY Ferrous Sulfate [Iron (65 MG Elemental)] 325 mg PO BID Cholecalciferol [Vitamin D3 (25 Mcg = 1000 Iu)] 25 mcg PO HS Rivaroxaban [Xarelto] 10 mg PO DAILY Ascorbic Acid [Vitamin C] 1,000 mg PO HS Clopidogrel [Plavix] 75 mg PO DAILY #90 tab Multivit-Min/Iron/Folic/Lutein [Centrum Silver Women Tablet] 1 tab PO HS metFORMIN HCL ER [Glucophage XR] 500 mg PO BID Gabapentin [Neurontin] 300 mg PO BID Fluticasone Nasal [place] [Flonase Nasal [place]] 2 spray EA NOSTRIL DAILY Tirzepatide [Mounjaro] 10 mg SQ MO Calcium Carbonate [Calcium] 1,200 mg PO DAILY Magnesium Gel Rub (Unknown Strength) 1 dose TOPICAL HS Discharge Medication List allopurinoL [Zyloprim] 300 mg PO DAILY 06/16/15 [History] Oxybutynin Chloride 5 mg PO BID 12/31/17 [History] Cholecalciferol [Vitamin D3 (25 Mcg = 1000 Iu)] 25 mcg PO HS 03/25/21 [History] DULoxetine HCL [Cymbalta] 60 mg PO DAILY 03/25/21 [History] Ascorbic Acid [Vitamin C] 1,000 mg PO HS 08/09/22 [History] Rivaroxaban [Xarelto] 10 mg PO DAILY 08/09/22 [History] Valsartan [Diovan] 320 mg PO DAILY 08/09/22 [History] Zinc Gluconate [Zinc] 50 mg PO HS 08/09/22 [History] Melatonin 5 mg PO HS PRN 10/08/23 [History] Clopidogrel [Plavix] 75 mg PO DAILY #90 tab 10/10/23 [Rx] Nitroglycerin Sl Tabs [Nitrostat] 0.4 mg SUBLINGUAL Q5M PRN #25 tab 10/10/23 [Rx] ALPRAZolam [Xanax] 0.5 mg PO DAILY PRN 09/03/24 [History] Calcium Carbonate [Calcium] 1,200 mg PO DAILY 09/03/24 [History] Esomeprazole Magnesium [NexIUM] 40 mg PO AC-BRKFST 09/03/24 [History] Ferrous Sulfate [Iron (65 MG Elemental)] 325 mg PO BID 09/03/24 [History] Fluticasone Nasal [place] [Flonase Nasal [place]] 2 spray EA NOSTRIL DAILY 09/03/24 [History] Gabapentin [Neurontin] 300 mg PO BID 09/03/24 [History] Insulin Degludec [Tresiba Flextouch U-100 Pen] 20 units SQ DAILY 09/03/24 [History] Magnesium Gel Rub (Unknown Strength) 1 dose TOPICAL HS 09/03/24 [History] Multivit-Min/Iron/Folic/Lutein [Centrum Silver Women Tablet] 1 tab PO HS 09/03/24 [History] Pravastatin Sodium [Pravachol] 40 mg PO HS 09/03/24 [History] Tirzepatide [Mounjaro] 10 mg SQ MO 09/03/24 [History] Triamterene/Hydrochlorothiazid [Triamterene-Hctz 37.5-25 mg Cp] 1 cap PO DAILY 09/03/24 [History] metFORMIN HCL ER [Glucophage XR] 500 mg PO BID 09/03/24 [History] Metoprolol Succinate (ER) [Toprol XL] 25 mg PO DAILY 30 Days #30 tab 09/04/24 [Rx] Follow up Appointment(s)/Referral(s): Alicia Dimas MD [STAFF PHYSICIAN] - 1 Week (Please make appointment when office is open) Madai Simpson MD [Primary Care Provider] - 1-2 days (Please make appointment when office is open) John Harper DO [Doctor of Osteopathic Medicine] - As Needed (Please make appointment when office is open) Patient Instructions/Handouts: Hip Bursitis (GEN), Back Pain (GEN), Hip Bursitis Exercises (GEN) Activity/Diet/Wound Care/Special Instructions: Activity: As tolerated. Take breaks as needed. Diet: Heart healthy and carb consistent diet. Avoid salts, or foods with hidden salts such as canned or boxed foods and frozen dinners. Extra salt makes your heart work harder and traps the fluid in your body for longer. Special Instructions: Take all of your medications as directed and remember to keep all of your doctor's appointments and follow-up as needed. Thank you for allowing us to participate in your care, it was truly a pleasure having you for our patient!!! Discharge Disposition: HOME SELF-CARE
== END 2024-09-04 14:36 | disposition home or self-care (01) ==
LOC: EC 11:17 → 6NMEDSUR 13:59
PROVIDERS: ADMIT Student in an Organized Health Care Education/Training Program; ATTEND Student in an Organized Health Care Education/Training Program
DX: M54.9 Dorsalgia, unspecified (principal); R07.89 Other chest pain; M70.62 Trochanteric bursitis, left hip; I25.10 Atherosclerotic heart disease of native coronary artery without angina pectoris; I10 Essential (primary) hypertension; E11.40 Type 2 diabetes mellitus with diabetic neuropathy, unspecified; K21.9 Gastro-esophageal reflux disease without esophagitis; G47.33 Obstructive sleep apnea (adult) (pediatric); E78.5 Hyperlipidemia, unspecified; I25.2 Old myocardial infarction; Z85.820 Personal history of malignant melanoma of skin; Z86.711 Personal history of pulmonary embolism; Z86.718 Personal history of other venous thrombosis and embolism; Z87.891 Personal history of nicotine dependence; Z95.5 Presence of coronary angioplasty implant and graft; Z96.642 Presence of left artificial hip joint; Z79.01 Long term (current) use of anticoagulants; Z79.02 Long term (current) use of antithrombotics/antiplatelets; Z79.4 Long term (current) use of insulin; Z79.82 Long term (current) use of aspirin; Z79.84 Long term (current) use of oral hypoglycemic drugs; Z79.85 Long-term (current) use of injectable non-insulin antidiabetic drugs; Z79.899 Other long term (current) drug therapy
CPT/HCPCS: 96365; 96366; 99285; 36415; 93005; 80061; 80053; 80048; 83735 ×2; 84484; 85025; 85027; 85610; 85730; 83036; 73502; 71046; G0378 ×2; J3475